=== PATIENT | male | born 1960 | race Caucasian/White ===

== ENCOUNTER 2016-08-02 16:29 | Inpatient (IN) | payer MEDICARE ==
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
[2016-08-02] MEDS ORDERED: OXYCODONE HCL IR 5 MG TABLET PO ONE (17:55)
[2016-08-02 18:05] LABS: ABSOLUTE BASOPHILS # (AUTO) 0.1 10^3/uL (0.0-0.2); ABSOLUTE LYMPHOCYTES (AUTO) 1.1 10^3/uL (0.5-4.7); ABSOLUTE MONOCYTES (AUTO) 0.8 10^3/uL (0.1-1.4); ABSOLUTE NEUT (AUTO) 9.3 10^3/uL (1.7-8.2); BASOPHILS % (AUTO) 0.7 % (0-2); EOSINOPHILS % (AUTO) 0.1 % (0-6); HEMATOCRIT 40.5 % (37.9-51.0); HEMOGLOBIN 13.2 g/dL (13.5-17.0); HGB HCT DIFFERENCE -0.9; LYMPHOCYTES % (AUTO) 9.7 % (13-45); MEAN CORPUSCULAR HEMOGLOBIN 27.5 pg (27.0-33.4); MEAN CORPUSCULAR HGB CONC 32.5 g/dL (32.0-36.0); MEAN CORPUSCULAR VOLUME 85 fl (80-97); MONOCYTES % (AUTO) 6.8 % (3-13); RED BLOOD COUNT 4.78 10^6/uL (4.35-5.55); RED CELL DISTRIBUTION WIDTH 16.4 % (11.5-14.0); SEGMENTED NEUTROPHILS % (AUTO) 82.7 % (42-78); WHITE BLOOD COUNT 11.2 10^3/uL (4.0-10.5)
[2016-08-02] MEDS ORDERED: MORPHINE SULFATE 10 MG/ML INJ IV ONE (18:05)
[2016-08-02] MEDS ORDERED: IPRATROPIUM/ALBUTEROL 0.5-2.5 MG/3 ML AMPUL NEB PRN (18:14)
[2016-08-02] MEDS ORDERED: VANCOMYCIN HCL 0 MG in DEXTROSE 5%-WATER 250 ML IV NR (18:30)
[2016-08-02] MEDS ORDERED: GENTAMICIN SULFATE 0 MG in DEXTROSE 5%-WATER 100 ML IV NR (18:30)
--- NOTE | 2016-08-02 18:52 | PDOC H&P ---
History of Present Illness Admission Date/PCP: 08/02/16 18:04 CORNEL FOOTE Patient complains of: rotten flesh History of Present Illness: SONU MENARD is a 55 year old male known paraplegic from prior injury and with chronic decub ulcers undergoing treatment at the wound clinic presents from home at the insistence of his brother who found him in a frightful state with obviously rotting flesh based on the odor upon entering the home and upon visualization of his chronic wounds. He states the clinic "isn't doing anything with these for the last 4 months", right after he got out of the SNF where he was receiving wound vac treatment before being d/c'd home. He has a diverting ostomy and suprapubic catheter that he manages on his own, used to have home health agency out of [place] but he can't remember the name or last time they came to the home. Dr Auguste has already evaluated and intends to take him to the OR for debridement, we were asked to admit for IV abx and further management. 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 he also has a hx of cdiff colitis though he isn't on any suppressive tx at present. Past Medical History Neurological Medical History: Reports: Other - Paraplegic; paralyzed from waist down Past Surgical History Past Surgical History: Reports: Colostomy Social History Information Source: Patient Smoking Status: Former Smoker Frequency of Alcohol Use: None Hx Recreational Drug Use: No Drugs: None Hx Prescription Drug Abuse: No - Advance Directive Resuscitation Status: Full Code Family History Family History: Reviewed & Not Pertinent, COPD - Brotherlung disease., Hypertension, Malignancy - FatherLung cancer. Parental Family History Reviewed: Yes Children Family History Reviewed: Yes Sibling(s) Family History Reviewed.: Yes Medication/Allergy Home Medications: Diazepam [Valium 5 mg Tablet] 5 mg PO QHS 12/03/15 Gabapentin 600 mg PO TID 12/03/15 Oxycodone HCl [Oxycontin] 30 mg PO Q8H 12/03/15 Oxymorphone HCl [Opana] 10 mg PO Q6HP PRN 12/03/15 Promethazine HCl [Phenergan 25 mg Tablet] 25 mg PO Q6H PRN 12/03/15 Allergies/Adverse Reactions: Penicillins Allergy (Verified 10/02/15 08:17) Review of Systems Constitutional: PRESENT: chills, fever(s), weakness Cardiovascular: ABSENT: chest pain, palpitations Respiratory: ABSENT: cough, dyspnea Gastrointestinal: ABSENT: abdominal pain, dysphagia, heartburn Genitourinary: ABSENT: difficulty urinating, dysuria, hematuria Integumentary: PRESENT: as per HPI, wounds. ABSENT: pruritus Neurological: PRESENT: paresthesias - chronic Psychiatric: ABSENT: homidical ideation, suicidal ideation Physical Exam Vital Signs: Temp Pulse Resp BP Pulse Ox 98.2 F 107 H 18 106/61 96 08/02/16 16:55 08/02/16 16:55 08/02/16 16:55 08/02/16 16:55 08/02/16 16:55 General appearance: PRESENT: mild distress, thin. ABSENT: well-developed - cachectic Head exam: PRESENT: atraumatic, normocephalic Eye exam: ABSENT: conjunctival injection, scleral icterus Mouth exam: PRESENT: neck supple Teeth exam: PRESENT: poor dentation Neck exam: PRESENT: full ROM. ABSENT: tracheal deviation Respiratory exam: PRESENT: clear to auscultation maury. ABSENT: accessory muscle use Cardiovascular exam: PRESENT: RRR. ABSENT: systolic murmur Pulses: PRESENT: normal radial pulses, normal dorsalis pedis pul GI/Abdominal exam: PRESENT: normal bowel sounds, soft, other - ostomy bag full of liquid brown stool. ABSENT: tenderness Gentrourinary exam: PRESENT: indwelling catheter Extremities exam: PRESENT: clubbing, other - severe muscle wasting of lower exts. ABSENT: calf tenderness, pedal edema Musculoskeletal exam: ABSENT: ambulatory, full ROM Neurological exam: PRESENT: alert, awake, oriented to person, oriented to place , oriented to time Psychiatric exam: PRESENT: appropriate affect, normal mood Skin exam: PRESENT: other - open stage 4 pressure wounds buttocks, heels and stage 3 on Rt knee with foul smelling, necrotic tissue and visible deep tissue, possibly bone Results Laboratory Results: 08/02/16 17:50 MCV 85 fl (80-97) 08/02/16 17:50 MCH 27.5 pg (27.0-33.4) 08/02/16 17:50 MCHC 32.5 g/dL (32.0-36.0) 08/02/16 17:50 RDW 16.4 % (11.5-14.0) H 08/02/16 17:50 Seg Neutrophils % 82.7 % (42-78) H 08/02/16 17:50 Lymphocytes % 9.7 % (13-45) L 08/02/16 17:50 Monocytes % 6.8 % (3-13) 08/02/16 17:50 Eosinophils % 0.1 % (0-6) 08/02/16 17:50 Basophils % 0.7 % (0-2) 08/02/16 17:50 Absolute Neutrophils 9.3 10^3/uL (1.7-8.2) H 08/02/16 17:50 Absolute Lymphocytes 1.1 10^3/uL (0.5-4.7) 08/02/16 17:50 Absolute Monocytes 0.8 10^3/uL (0.1-1.4) 08/02/16 17:50 Absolute Eosinophils 0.0 10^3/uL (0.0-0.6) 08/02/16 17:50 Absolute Basophils 0.1 10^3/uL (0.0-0.2) 08/02/16 17:50 Assessment & Plan - Time Time Spent: 50 to 70 Minutes Medications reviewed and adjusted accordingly: Yes Anticipated discharge: SNF Within: Other - Inpatient Certification Based on my medical assessment, after consideration of the patient's comorbidities, presenting symptoms, or acuity I expect that the services needed warrant INPATIENT care.: Yes I certify that my determination is in accordance with my understanding of Medicare's requirements for reasonable and necessary INPATIENT services [42 CFR 412.3e].: Yes Medical Necessity: Failure to Improve With Outpatient Therapy, Significant Comorbidiites Make Outpatient Treatment Too Risky, Need For IV Fluids, Need for Pain Control, Need for IV Antibiotics, Need for Surgery, Risk of Complication if Not Cared For in Hospital - Plan Summary Plan Summary: admit for broad spectrum IV abx with imipenem, gent and vanc; surgery consult for I&D in the OR
[2016-08-02] MEDS ORDERED: OXYCODONE HCL SR 10 MG TABLET PO ONE ×2 (20:15→21:22)
--- NOTE | 2016-08-02 20:38 | OPERATIVE REPORT E ---
Operative Report NAME: SONU MENARD : 1960 AGE: 55Y DATE OF SURGERY: 08/02/2016 ROOM: 212 PREOPERATIVE DIAGNOSIS: A 6 cm x 4 cm deep pressure ulcer on the left trochanteric site with foul-smelling necrotic tissue. POSTOPERATIVE DIAGNOSIS: A 6 cm x 4 cm deep pressure ulcer on the left trochanteric site with foul-smelling necrotic tissue. OPERATION: Sharp debridement of left trochanteric pressure ulcer with large necrotic tissue. SURGEON: SOWMYA JAEGER M.D. ANESTHESIA: INDICATION: This is a 55-year-old paraplegic who had a previous diverting colostomy and suprapubic catheter, apparently has been treated at the halfway facility and subsequently sent home in the past 3 months. He was supposed to have a VAC that was not utilized and now the brother saw him at home with foul-smelling ulcer and patient noted to be dehydrated. The patient is anesthetic from the waist down. He also has another decubitus on the right trochanteric area which looks relatively clean and a lot smaller, roughly measuring about 4 x 5 cm in diameter. DESCRIPTION OF PROCEDURE: With the use of #15 scalpel blade, the necrotic tissue was debrided down to the muscle area until underlying tissue bled. At least half of the ulcer which roughly measured about 10 cm in diameter had considerable amount of necrotic tissue but no yudith abscess. The ulcer has tunneled down into the bone roughly about 4 cm deep. The bone can be palpated though there appears to be tissue over it, so the procedure was terminated and patient to be placed on Santyl dressings b.i.d. I suggest an MRI to rule out any osteomyelitis of the left greater trochanteric area. Sterile dressings placed over the operative site. The patient tolerated the procedure well. DICTATING PHYSICIAN: SOWMYA JAEGER M.D. [id number] PHY#: [id number] ID: [id number] JOB#: [id number] ACCT: [id number] cc:SOWMYA JAEGER M.D. >
[2016-08-02 21:23] LABS: ALANINE AMINOTRANSFERASE 16 U/L (21-72); ALBUMIN 2.9 g/dL (3.5-5.0); ALKALINE PHOSPHATASE 108 U/L (38-126); ANION GAP 9 (5-19); ASPARTATE AMINO TRANSFERASE 15 U/L (17-59); BILIRUBIN,DIRECT 0.3 mg/dL (0.0-0.4); BILIRUBIN,TOTAL 0.5 mg/dL (0.2-1.3); BLOOD UREA NITROGEN 12 mg/dL (7-20); CALCIUM 8.2 mg/dL (8.4-10.2); CARBON DIOXIDE 28 mmol/L (22-30); CHLORIDE 95 mmol/L (98-107); GLUCOSE 148 mg/dL (75-110); PHOSPHORUS 3.4 mg/dL (2.5-4.5); POTASSIUM 3.7 mmol/L (3.6-5.0); SODIUM 131.7 mmol/L (137-145); TOTAL PROTEIN 6.3 g/dL (6.3-8.2)
[2016-08-02] MEDS: METRONIDAZOLE 500 MG TABLET PO SCH (21:33)
[2016-08-02] MEDS: NORMAL SALINE 1000 ML 1,000 ML IV PRN (21:35)
[2016-08-02] MEDS ORDERED: IMIPENEM/CILASTATIN SODIUM INJ 500 MG VIAL IV PRN (22:58)
[2016-08-02] MEDS ORDERED: GENTAMICIN SULFATE INJ 80 MG/2 ML VIAL IV PRN (23:16)
[2016-08-02] MEDS ORDERED: VANCOMYCIN HCL INJ 1000 MG VIAL IV PRN (23:19)
[2016-08-02] MEDS ORDERED: VANCOMYCIN HCL INJ 500 MG VIAL IV PRN (23:20)
[2016-08-02] MEDS: MORPHINE SULFATE 10 MG/ML INJ IV PRN (23:44)
[2016-08-02] MEDS ORDERED: VANCOMYCIN HCL INJ 500 MG VIAL ONE (23:51)
[2016-08-02] MEDS ORDERED: VANCOMYCIN HCL INJ 1000 MG VIAL ONE (23:51)
[2016-08-02] MEDS ORDERED: IMIPENEM/CILASTATIN SODIUM INJ 500 MG VIAL IV ONE (23:51)
[2016-08-03] MEDS ORDERED: IMIPENEM/CILASTATIN SODIUM INJ 500 MG VIAL IV ONE (00:32)
[2016-08-03] MEDS: ACETAMINOPHEN 325 MG TABLET PO PRN ×3 (00:47→21:44)
[2016-08-03] MEDS: IMIPENEM/CILASTATIN SODIUM 500 MG in NORMAL SALINE 100 ML IV SCH ×5 (00:55→23:37)
[2016-08-03] MEDS ORDERED: GENTAMICIN SULFATE 80 MG in DEXTROSE 5%-WATER 100 ML IV ONE (01:00)
[2016-08-03] MEDS ORDERED: VANCOMYCIN HCL 1,250 MG in DEXTROSE 5%-WATER 250 ML IV ONE (02:00)
[2016-08-03] MEDS: OXYCODONE-ACETAMINOPHEN 5-325 MG TABLET PO PRN ×2 (02:04→08:15)
[2016-08-03] MEDS: MORPHINE SULFATE 10 MG/ML INJ IV PRN ×4 (05:04→21:14)
[2016-08-03] MEDS: ONDANSETRON HCL INJ/PF 4 MG/2 ML SDV IV PRN ×2 (06:37→12:54)
[2016-08-03] MEDS: METRONIDAZOLE 500 MG TABLET PO SCH ×3 (06:52→21:16)
[2016-08-03 08:09] LABS: ABSOLUTE BASOPHILS # (AUTO) 0.1 10^3/uL (0.0-0.2); ABSOLUTE LYMPHOCYTES (AUTO) 0.7 10^3/uL (0.5-4.7); ABSOLUTE MONOCYTES (AUTO) 0.7 10^3/uL (0.1-1.4); BASOPHILS % (AUTO) 0.8 % (0-2); EOSINOPHILS % (AUTO) 0.1 % (0-6); HEMATOCRIT 38.1 % (37.9-51.0); HEMOGLOBIN 12.4 g/dL (13.5-17.0); HGB HCT DIFFERENCE -0.9; LYMPHOCYTES % (AUTO) 9.2 % (13-45); MEAN CORPUSCULAR HEMOGLOBIN 27.5 pg (27.0-33.4); MEAN CORPUSCULAR HGB CONC 32.4 g/dL (32.0-36.0); MEAN CORPUSCULAR VOLUME 85 fl (80-97); MONOCYTES % (AUTO) 9.8 % (3-13); RED CELL DISTRIBUTION WIDTH 16.4 % (11.5-14.0); SEGMENTED NEUTROPHILS % (AUTO) 80.1 % (42-78); WHITE BLOOD COUNT 7.5 10^3/uL (4.0-10.5)
[2016-08-03 08:26] LABS: ANION GAP 8 (5-19); BLOOD UREA NITROGEN 10 mg/dL (7-20); CALCIUM 8.1 mg/dL (8.4-10.2); CARBON DIOXIDE 24 mmol/L (22-30); CHLORIDE 98 mmol/L (98-107); CREATININE RESULT 0.47 mg/dL (0.52-1.25); GLUCOSE 144 mg/dL (75-110); POTASSIUM 3.8 mmol/L (3.6-5.0); SODIUM 129.8 mmol/L (137-145)
[2016-08-03] MEDS ORDERED: IMIPENEM/CILASTATIN SODIUM 500 MG in NORMAL SALINE 100 ML IV SCH (09:00)
[2016-08-03] MEDS: ENOXAPARIN SODIUM INJ 40 MG/0.4 ML DISP.SYRIN SUBCUT SCH (10:13)
--- NOTE | 2016-08-03 10:24 | PDOC PROGRESS REPORT ---
Subjective Progress Note for:: 08/03/16 Subjective:: reason for visit: f/u decub ulcers, hyponatremia hospital course: SONU MENARD is a 55 year old male known paraplegic from prior injury and with chronic decub ulcers undergoing treatment at the wound clinic presents from home at the insistence of his brother who found him in a frightful state with obviously rotting flesh based on the odor upon entering the home and upon visualization of his chronic wounds. He states the clinic "isn't doing anything with these for the last 4 months", right after he got out of the SNF where he was receiving wound vac treatment before being d/c'd home. He has a diverting ostomy and suprapubic catheter that he manages on his own, used to have home health agency out of [place] but he can't remember the name or last time they came to the home. Dr Auguste has already evaluated and intends to take him to the OR for debridement, we were asked to admit for IV abx and further management. 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 he also has a hx of cdiff colitis though he isn't on any suppressive tx at present. taken to the OR last night by dr auguste with extensive debridement particularly of the largest of his wounds identifying a fistulous tract down to pelvic bone; unknown if tissue or fluid sent for cultures. he is feeling some better this morning, c/o persistent chronic, constant sharp stabbing pain in his lower back, nonradiating, not improved with anything, worse with "everything". had fever overnight that made him feel worse with asct 'd chills/rigors. denies chest pain, SOA, n/v and change in stools. ROS: all systems reviewed, see above, remaining systems negative Physical Exam Vital Signs: Temp Pulse Resp BP Pulse Ox 98.8 F 103 H 16 88/52 L 98 08/03/16 08:07 08/03/16 08:07 08/03/16 08:07 08/03/16 08:07 08/03/16 08:07 Intake & Output 08/02/16 08/03/16 08/04/16 06:59 06:59 06:59 Intake Total 400 Output Total 400 Balance 0 Weight 56.7 kg General appearance: PRESENT:no distress, thin- cachectic Head exam: PRESENT: atraumatic, normocephalic Eye exam: ABSENT: conjunctival injection, scleral icterus Mouth exam: PRESENT: neck supple Teeth exam: PRESENT: poor dentation Neck exam: PRESENT: full ROM. ABSENT: tracheal deviation Respiratory exam: PRESENT: clear to auscultation maury. ABSENT: accessory muscle use Cardiovascular exam: PRESENT: RRR. ABSENT: systolic murmur Pulses: PRESENT: normal radial pulses, normal dorsalis pedis pul GI/Abdominal exam: PRESENT: normal bowel sounds, soft, other - ostomy noted ABSENT: tenderness Gentrourinary exam: PRESENT: indwelling suprapubic catheter Extremities exam: PRESENT: clubbing, other - severe muscle wasting of lower exts. ABSENT: calf tenderness, pedal edema Musculoskeletal exam: ABSENT: ambulatory, full ROM Neurological exam: PRESENT: alert, awake, oriented to person, oriented to place , oriented to time Psychiatric exam: PRESENT: appropriate affect, normal mood SKIN: wounds heavily bandaged and did not visualize Results Laboratory Results: 08/03/16 08:00 08/03/16 08:00 08/02/16 08/02/16 08/03/16 19:05 21:00 08:00 WBC 7.5 RBC 4.50 Hgb 12.4 L Hct 38.1 MCV 85 MCH 27.5 MCHC 32.4 RDW 16.4 H Plt Count 159 Seg Neutrophils % 80.1 H Lymphocytes % 9.2 L Monocytes % 9.8 Eosinophils % 0.1 Basophils % 0.8 Absolute Neutrophils 6.0 Absolute Lymphocytes 0.7 Absolute Monocytes 0.7 Absolute Eosinophils 0.0 Absolute Basophils 0.1 Sodium Cancelled 131.7 L Potassium Cancelled 3.7 Chloride Cancelled 95 L Carbon Dioxide Cancelled 28 Anion Gap Cancelled 9 BUN Cancelled 12 Creatinine Cancelled 0.80 Est GFR ( Amer) Cancelled > 60 Est GFR (Non-Af Amer) Cancelled > 60 Glucose Cancelled 148 H Calcium Cancelled 8.2 L Phosphorus Cancelled 3.4 Magnesium Cancelled 2.0 Total Bilirubin Cancelled 0.5 AST Cancelled 15 L ALT Cancelled 16 L Alkaline Phosphatase Cancelled 108 Total Protein Cancelled 6.3 Albumin Cancelled 2.9 L 08/03/16 08:00 WBC RBC Hgb Hct MCV MCH MCHC RDW Plt Count Seg Neutrophils % Lymphocytes % Monocytes % Eosinophils % Basophils % Absolute Neutrophils Absolute Lymphocytes Absolute Monocytes Absolute Eosinophils Absolute Basophils Sodium 129.8 L Potassium 3.8 Chloride 98 Carbon Dioxide 24 Anion Gap 8 BUN 10 Creatinine 0.47 L Est GFR ( Amer) > 60 Est GFR (Non-Af Amer) > 60 Glucose 144 H Calcium 8.1 L Phosphorus Magnesium Total Bilirubin AST ALT Alkaline Phosphatase Total Protein Albumin Assessment & Plan - Diagnosis (1) Osteomyelitis hip Is this a current diagnosis for this admission?: YesPlan: new. continue broad spectrum abx awaiting cultures to narrow (2) Sacral decubitus ulcer, stage IV Is this a current diagnosis for this admission?: YesPlan: improved after surgery; continue wound care and further debridement per surgeon (3) History of MRSA infection Is this a current diagnosis for this admission?: YesPlan: continue vanc until cultures prove otherweise (4) Paraplegia following spinal cord injury Is this a current diagnosis for this admission?: Yes (5) Hyponatremia Is this a current diagnosis for this admission?: YesPlan: continue IVFs (6) History of Clostridium difficile colitis Is this a current diagnosis for this admission?: YesPlan: continue prophylactic flagyl and probiotic (7) Severe protein-calorie malnutrition Is this a current diagnosis for this admission?: YesPlan: affects wound healing; dietary/nutrition consult (8) Chronic pain Qualifiers: Chronic pain type: other chronic postprocedural pain Qualified Code( s): G89.28 - Other chronic postprocedural pain Is this a current diagnosis for this admission?: YesPlan: narcotic dependent; continue home regimen and prn analgesics - Time Time Spent with patient: 25-34 minutes Medications reviewed and adjusted accordingly: Yes Anticipated discharge: Home with Homehealth - Plan Summary Plan Summary: place PICC line for 6wks of abx; defer to surgery regarding wound vac though he has had some success with this device in the past
[2016-08-03] MEDS: OXYCODONE HCL SR 10 MG TABLET PO SCH ×2 (13:33→21:15)
[2016-08-03] MEDS: OXYCODONE HCL IR 5 MG TABLET PO PRN ×2 (13:47→19:53)
[2016-08-03] MEDS ORDERED: GABAPENTIN 300 MG CAPSULE PO SCH (14:00)
[2016-08-03] MEDS: GENTAMICIN SULFATE 80 MG in DEXTROSE 5%-WATER 100 ML IV SCH (14:25)
[2016-08-03] MEDS: GABAPENTIN 300 MG CAPSULE PO SCH ×2 (14:26→21:15)
[2016-08-03] MEDS: VANCOMYCIN HCL 750 MG in DEXTROSE 5%-WATER 250 ML IV SCH (15:40)
[2016-08-03] MEDS ORDERED: COLLAGENASE CLOSTRIDIUM HIST. OINT 30 GM ONE (17:06)
[2016-08-03] MEDS: LACTOBACILLUS ACIDOPHILUS 250 MG TAB PO SCH (17:32)
[2016-08-03] MEDS: COLLAGENASE CLOSTRIDIUM HIST. OINT 30 GM TOP SCH (17:33)
--- NOTE | 2016-08-03 21:38 | PROGRESS NOTE E ---
Progress Note NAME: SONU MENARD : 1960 AGE: 55Y DATE: 08/03/2016 ROOM: 212 SUBJECTIVE: I did debridement of large decubitus pressure ulcer on the left trochanteric area at bedside yesterday. I just ordered Santyl dressing changes to the left decubitus ulcer twice a day for further debridement. The patient may need an MRI of the left hip to rule out osteomyelitis. Also, if there is osteomyelitis then Orthopedics may be able to dbride the trochanteric area and then start him back on VAC therapy since he has already been stool diverted with a colostomy. In the meantime, continue with IV antibiotic therapy for at least 6 weeks. DICTATING PHYSICIAN: SOWMYA JAEGER M.D. [id number] JOSE#: [id number] ID: [id number] JOB#: [id number] ACCT: [id number] cc: >
[2016-08-04] MEDS: GENTAMICIN SULFATE 80 MG in DEXTROSE 5%-WATER 100 ML IV SCH ×2 (01:19→14:09)
[2016-08-04] MEDS: MORPHINE SULFATE 10 MG/ML INJ IV PRN ×5 (01:26→21:25)
[2016-08-04] MEDS: OXYCODONE HCL IR 5 MG TABLET PO PRN ×3 (03:03→19:09)
[2016-08-04] MEDS: GABAPENTIN 300 MG CAPSULE PO SCH ×4 (03:59→21:26)
[2016-08-04] MEDS: VANCOMYCIN HCL 750 MG in DEXTROSE 5%-WATER 250 ML IV SCH ×2 (04:00→16:26)
[2016-08-04] MEDS: IMIPENEM/CILASTATIN SODIUM 500 MG in NORMAL SALINE 100 ML IV SCH ×3 (05:14→19:07)
[2016-08-04] MEDS: OXYCODONE HCL SR 10 MG TABLET PO SCH ×3 (05:14→22:59)
[2016-08-04] MEDS: METRONIDAZOLE 500 MG TABLET PO SCH ×3 (05:14→21:26)
[2016-08-04] MEDS ORDERED: NORMAL SALINE 1000 ML 1,000 ML IV ONE (07:00)
[2016-08-04 07:36] LABS: ABSOLUTE EOSINOPHILS # (AUTO) 0.1 10^3/uL (0.0-0.6); ABSOLUTE LYMPHOCYTES (AUTO) 1.3 10^3/uL (0.5-4.7); ABSOLUTE MONOCYTES (AUTO) 0.7 10^3/uL (0.1-1.4); ABSOLUTE NEUT (AUTO) 4.3 10^3/uL (1.7-8.2); BASOPHILS % (AUTO) 0.5 % (0-2); EOSINOPHILS % (AUTO) 0.9 % (0-6); HEMATOCRIT 36.3 % (37.9-51.0); HEMOGLOBIN 11.8 g/dL (13.5-17.0); HGB HCT DIFFERENCE -0.9; LYMPHOCYTES % (AUTO) 20.2 % (13-45); MEAN CORPUSCULAR HEMOGLOBIN 27.6 pg (27.0-33.4); MEAN CORPUSCULAR HGB CONC 32.6 g/dL (32.0-36.0); MEAN CORPUSCULAR VOLUME 85 fl (80-97); MONOCYTES % (AUTO) 11.2 % (3-13); RED CELL DISTRIBUTION WIDTH 16.6 % (11.5-14.0); SEGMENTED NEUTROPHILS % (AUTO) 67.2 % (42-78); WHITE BLOOD COUNT 6.4 10^3/uL (4.0-10.5)
[2016-08-04 07:40] LABS: PROTHROMBIN TIME 13.8 SEC (11.4-15.4)
[2016-08-04 07:46] LABS: ANION GAP 8 (5-19); BLOOD UREA NITROGEN 6 mg/dL (7-20); CALCIUM 8.1 mg/dL (8.4-10.2); CARBON DIOXIDE 22 mmol/L (22-30); CHLORIDE 100 mmol/L (98-107); CREATININE RESULT 0.41 mg/dL (0.52-1.25); GLUCOSE 99 mg/dL (75-110); POTASSIUM 3.8 mmol/L (3.6-5.0)
[2016-08-04 08:08] LABS: C-REACTIVE PROTEIN 201.2 mg/L (<10.0)
[2016-08-04] MEDS: COLLAGENASE CLOSTRIDIUM HIST. OINT 30 GM TOP SCH ×2 (10:35→19:18)
[2016-08-04] MEDS: LACTOBACILLUS ACIDOPHILUS 250 MG TAB PO SCH ×2 (10:35→19:11)
--- NOTE | 2016-08-04 11:01 | PDOC PROGRESS REPORT ---
Subjective Progress Note for:: 08/04/16 Subjective:: reason for visit: f/u decub ulcers, hyponatremia hospital course: SONU MENARD is a 55 year old male known paraplegic from prior injury and with chronic decub ulcers undergoing treatment at the wound clinic presents from home at the insistence of his brother who found him in a frightful state with obviously rotting flesh based on the odor upon entering the home and upon visualization of his chronic wounds. He states the clinic "isn't doing anything with these for the last 4 months", right after he got out of the SNF where he was receiving wound vac treatment before being d/c'd home. He has a diverting ostomy and suprapubic catheter that he manages on his own, used to have home health agency out of [place] but he can't remember the name or last time they came to the home. Dr Auguste has already evaluated and intends to take him to the OR for debridement, we were asked to admit for IV abx and further management. 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 he also has a hx of cdiff colitis though he isn't on any suppressive tx at present. taken to the OR by dr auguste with extensive debridement particularly of the largest of his wounds identifying a fistulous tract down to pelvic bone; unknown if tissue or fluid sent for cultures. he is feeling some better this morning, c/o persistent chronic, constant sharp stabbing pain in his lower back though improved since admission, nonradiating, improved with narcotics, worse with movement. had fever overnight that made him feel worse with asct'd chills/rigors. denies chest pain, SOA, n/v; stools are more loose but not mucus or foul, he is well aware of cdiff stool character. ROS: all systems reviewed, see above, remaining systems negative Physical Exam Vital Signs: Temp Pulse Resp BP Pulse Ox 99.3 F 80 16 96/51 L 100 08/04/16 08:26 08/04/16 10:15 08/04/16 10:15 08/04/16 08:26 08/04/16 10:15 Intake & Output 08/03/16 08/04/16 08/05/16 06:59 06:59 06:59 Intake Total 400 16 Output Total 786 052 3333 Balance 0 -150 -1584 Weight 56.7 kg 65.1 kg General appearance: PRESENT:no distress, thin- cachectic Head exam: PRESENT: atraumatic, normocephalic Eye exam: ABSENT: conjunctival injection, scleral icterus Mouth exam: PRESENT: neck supple Teeth exam: PRESENT: poor dentation Neck exam: PRESENT: full ROM. ABSENT: tracheal deviation Respiratory exam: PRESENT: clear to auscultation maury. ABSENT: accessory muscle use Cardiovascular exam: PRESENT: RRR. ABSENT: systolic murmur Pulses: PRESENT: normal radial pulses, normal dorsalis pedis pul GI/Abdominal exam: PRESENT: normal bowel sounds, soft, other - ostomy noted ABSENT: tenderness Gentrourinary exam: PRESENT: indwelling suprapubic catheter Extremities exam: PRESENT: clubbing, other - severe muscle wasting of lower exts. ABSENT: calf tenderness, pedal edema Musculoskeletal exam: ABSENT: ambulatory, full ROM Neurological exam: PRESENT: alert, awake, oriented to person, oriented to place , oriented to time Psychiatric exam: PRESENT: appropriate affect, normal mood SKIN: wounds heavily bandaged and did not visualize Results Laboratory Results: 08/04/16 06:55 08/04/16 06:55 08/04/16 08/04/16 06:55 06:55 WBC 6.4 RBC 4.30 L Hgb 11.8 L Hct 36.3 L MCV 85 MCH 27.6 MCHC 32.6 RDW 16.6 H Plt Count 124 L Seg Neutrophils % 67.2 Lymphocytes % 20.2 Monocytes % 11.2 Eosinophils % 0.9 Basophils % 0.5 Absolute Neutrophils 4.3 Absolute Lymphocytes 1.3 Absolute Monocytes 0.7 Absolute Eosinophils 0.1 Absolute Basophils 0.0 Sodium 130.0 L Potassium 3.8 Chloride 100 Carbon Dioxide 22 Anion Gap 8 BUN 6 L Creatinine 0.41 L Est GFR ( Amer) > 60 Est GFR (Non-Af Amer) > 60 Glucose 99 Calcium 8.1 L C-Reactive Protein 201.2 H Assessment & Plan - Diagnosis (1) Osteomyelitis hip Is this a current diagnosis for this admission?: YesPlan: stable. continue broad spectrum abx for 6 weeks, awaiting cultures to narrow. discussed need for advanced imaging and/or transfer to tertiary center for more extensive debridement including bone but he has chosen a more conservative approach at this time. He is agreable to PICC line and home abx for 6 wks and wishes to discuss outpt referral to [facility] for surgical evaluation and options with his PCP. (2) Sacral decubitus ulcer, stage IV Is this a current diagnosis for this admission?: YesPlan: improved after surgery; continue wound care and further debridement per surgeon. may benefit from wound vac?? (3) History of MRSA infection Is this a current diagnosis for this admission?: Yes (4) Paraplegia following spinal cord injury Is this a current diagnosis for this admission?: Yes (5) Hyponatremia Is this a current diagnosis for this admission?: YesPlan: stable and likely his new baseline. (6) History of Clostridium difficile colitis Is this a current diagnosis for this admission?: YesPlan: stable, no evidence for recurrence as yet; continue prophylactic flagyl and probiotic (7) Severe protein-calorie malnutrition Is this a current diagnosis for this admission?: YesPlan: stable. affects wound healing; dietary/nutrition consult (8) Chronic pain Qualifiers: Chronic pain type: other chronic postprocedural pain Qualified Code( s): G89.28 - Other chronic postprocedural pain Is this a current diagnosis for this admission?: YesPlan: narcotic dependent; improved back on his home regimen and prn analgesics - Time Time Spent with patient: 15-24 minutes Anticipated discharge: Home with Homehealth Within: within 24 hours - Plan Summary Plan Summary: dialysis patient care technician consult for home abx; awaiting culture results to narrow abx if possible, if not then would recommend continuing vanc and a carbapenem with pseudomonas coverage, oral flagyl for cdiff prophylaxis and d/c gentamycin
[2016-08-04] MEDS: ENOXAPARIN SODIUM INJ 40 MG/0.4 ML DISP.SYRIN SUBCUT SCH (12:20)
--- NOTE | 2016-08-04 12:35 | RADIOLOGY REPORT (SQ) ---
EXAM DESCRIPTION: PICC INSERTION; U/S GUIDE FOR VASCULAR ACCESS; FLUORO/CV PLACEMENT COMPLETED DATE/TIME: 08/04/2016 12:21 pm REASON FOR STUDY: needs 6wks IV abx; NEEDS 6 WEEK IV ABX; NEEDS 6 WEEKS IV ABX COMPARISON: None. FLUOROSCOPY TIME: 17 seconds. 1 images saved to PACS. TECHNIQUE: Fluoroscopic and ultrasound guided PICC placement. LIMITATIONS: None. PROCEDURE: After written consent and assessment were obtained, the patient was brought into the fluo roscopy room and place supine on the table. Ultrasound was used on the patient's right arm for PICC access. The right arm was prepped and draped in a sterile fashion along with the ultrasound probe. Th e entry site was anesthetized with 1% lidocaine. A 21 gauge 7 cm needle was advanced through the skin and into the basilic vein under live ultrasound guidance. An ultrasound image was saved to PACS con firming access site. A .018 guide wire was then inserted through the needle and into the venous syst em. The needle was the removed and an 11 blade scalpel was used to make a 1cm skin incision. A 5 fr peel-away sheath was advanced over the wire and into the venous system. A measurement was then made u sing the existing wire and live fluoroscopic guidance. The wire was then removed and the trimmed. The PICC was advanced through the peel-away sheath and into the venous system. The peel-away sheath was removed and the catheter was adhered to the patients arm with a stat lock. The catheter was then aspi rated and flushed and a sterile bandage was placed over the access site. A fluoroscopic spot image w as saved to PACS confirming the catheter tip within the superior vena cava. IMPRESSION: SUCCESSFUL PLACEMENT OF A 5 FR DUAL LUMEN 34 CM PICC IN THE RIGHT BASILIC VEIN. COMMENT: Patient medication list reviewed: Yes- Quality ID# [id number]:Eligible professional attests to doc umenting in the medical record they obtained, updated, or reviewed the patient's current medications. . Quality ID 145: Final reports for procedures using fluoroscopy that document radiation exposure parrish mehdi, or exposure time and number of fluorographic images (if radiation exposure indices are not avail able) Quality ID #76: The patient was prepped and draped using maximum sterile barrier technique including cap, mask, sterile gown, sterile gloves, a large sterile sheet, hand hygiene, and 2% Chlorhexidine fo r cutaneous antisepsis. When ultrasound is used, sterile ultrasound techniques are followed requiring sterile gel and sterile probes. TECHNICAL DOCUMENTATION: JOB ID: [id number] [employer]- All Rights Reserved
[2016-08-04] MEDS: NORMAL SALINE 1000 ML 1,000 ML IV PRN (12:37)
[2016-08-04 14:52] LABS: GENTAMICIN-TROUGH < 0.6 ug/mL (<2.0); TROUGH DRAW TIME 1357
[2016-08-04 17:27] LABS: GENTAMICIN-PEAK 6.2 ug/mL (5.0-10.0)
[2016-08-04] MEDS ORDERED: NORMAL SALINE 10 ML SDV (AFTER EACH USE) IV PRN (18:34)
[2016-08-05] MEDS: OXYCODONE HCL IR 5 MG TABLET PO PRN ×3 (01:40→23:58)
[2016-08-05] MEDS: IMIPENEM/CILASTATIN SODIUM 500 MG in NORMAL SALINE 100 ML IV SCH ×5 (01:41→23:58)
[2016-08-05] MEDS: GENTAMICIN SULFATE 80 MG in DEXTROSE 5%-WATER 100 ML IV SCH ×2 (03:07→13:20)
[2016-08-05] MEDS: GABAPENTIN 300 MG CAPSULE PO SCH ×4 (03:12→21:53)
[2016-08-05] MEDS: MORPHINE SULFATE 10 MG/ML INJ IV PRN ×4 (04:25→20:16)
[2016-08-05] MEDS: VANCOMYCIN HCL 750 MG in DEXTROSE 5%-WATER 250 ML IV SCH ×2 (04:32→15:45)
[2016-08-05] MEDS: OXYCODONE HCL SR 10 MG TABLET PO SCH ×3 (06:48→21:53)
[2016-08-05] MEDS: METRONIDAZOLE 500 MG TABLET PO SCH ×3 (06:48→21:53)
[2016-08-05] MEDS: NORMAL SALINE 1000 ML 1,000 ML IV PRN (06:56)
[2016-08-05 07:21] LABS: ABSOLUTE EOSINOPHILS # (AUTO) 0.1 10^3/uL (0.0-0.6); ABSOLUTE LYMPHOCYTES (AUTO) 1.6 10^3/uL (0.5-4.7); ABSOLUTE MONOCYTES (AUTO) 0.4 10^3/uL (0.1-1.4); ABSOLUTE NEUT (AUTO) 2.4 10^3/uL (1.7-8.2); BASOPHILS % (AUTO) 0.4 % (0-2); EOSINOPHILS % (AUTO) 2.3 % (0-6); HEMATOCRIT 33.6 % (37.9-51.0); HEMOGLOBIN 10.8 g/dL (13.5-17.0); HGB HCT DIFFERENCE -1.2; LYMPHOCYTES % (AUTO) 35.7 % (13-45); MEAN CORPUSCULAR HEMOGLOBIN 27.5 pg (27.0-33.4); MEAN CORPUSCULAR HGB CONC 32.2 g/dL (32.0-36.0); MEAN CORPUSCULAR VOLUME 86 fl (80-97); RED BLOOD COUNT 3.94 10^6/uL (4.35-5.55); RED CELL DISTRIBUTION WIDTH 16.8 % (11.5-14.0); SEGMENTED NEUTROPHILS % (AUTO) 53.6 % (42-78); WHITE BLOOD COUNT 4.4 10^3/uL (4.0-10.5)
[2016-08-05 07:44] LABS: ANION GAP 5 (5-19); BLOOD UREA NITROGEN 5 mg/dL (7-20); CALCIUM 7.8 mg/dL (8.4-10.2); CARBON DIOXIDE 28 mmol/L (22-30); CHLORIDE 102 mmol/L (98-107); CREATININE RESULT 0.37 mg/dL (0.52-1.25); GLUCOSE 94 mg/dL (75-110); POTASSIUM 3.8 mmol/L (3.6-5.0); SODIUM 135.4 mmol/L (137-145)
[2016-08-05 08:03] LABS: C-REACTIVE PROTEIN 126.6 mg/L (<10.0)
[2016-08-05] MEDS: LACTOBACILLUS ACIDOPHILUS 250 MG TAB PO SCH ×2 (09:27→18:10)
[2016-08-05] MEDS: ENOXAPARIN SODIUM INJ 40 MG/0.4 ML DISP.SYRIN SUBCUT SCH (09:27)
[2016-08-05] MEDS: COLLAGENASE CLOSTRIDIUM HIST. OINT 30 GM TOP SCH ×2 (09:28→18:10)
[2016-08-05] MEDS ORDERED: MORPHINE SULFATE 10 MG/ML INJ IV ONE (14:00)
[2016-08-05] MEDS: NORMAL SALINE 10 ML SDV (SCHEDULED) IV SCH (16:49)
--- NOTE | 2016-08-05 17:18 | PDOC PROGRESS REPORT ---
Subjective Progress Note for:: 08/05/16 Subjective:: The patient is resting in his bed. He has been having uncontrolled pain. We discussed his pain management. He has chronic pain with continuous narcotic use at baseline on fairly high-dose narcotics. He has been having increased pain since his surgical debridement. We discussed the plan of care. He states he would consider transfer to a tertiary center. I have discussed the patient today and I would like to talk to surgery and further review of his chart. I told him that if all are in agreement I would attempt to transfer him tomorrow. He is in agreement with this plan. Overall he denies fever chills. No chest pain, shortness of breath or heart palpitations. No nausea or vomiting. He states he is now having loose stools through his ostomy bag and he does have a history of Clostridium difficile infection. His stool has been sent for further studies. He has no voiding complaints. Physical Exam Vital Signs: Temp Pulse Resp BP Pulse Ox 97.9 F 67 16 91/45 L 98 08/05/16 15:00 08/05/16 15:00 08/05/16 15:00 08/05/16 15:00 08/05/16 15:00 Intake & Output 08/04/16 08/05/16 08/06/16 06:59 06:59 06:59 Intake Total 856 840 Output Total 150 4500 800 Balance -150 -3644 40 Weight 65.1 kg 62.6 kg General appearance: PRESENT: no acute distress Exam: He is quite cachectic Head exam: PRESENT: atraumatic, normocephalic Mouth exam: PRESENT: moist Respiratory exam: PRESENT: clear to auscultation maury Cardiovascular exam: PRESENT: RRR, +S1, +S2 GI/Abdominal exam: PRESENT: normal bowel sounds, soft, other - He is extremely thin. He has an ostomy in the left lower abdomen with soft stool in the bag.. ABSENT: tenderness Extremities exam: PRESENT: other - No clubbing cyanosis or edema. He has muscle wasting in all of his extremities bilaterally Neurological exam: PRESENT: alert, awake, oriented to person, oriented to place , oriented to time Psychiatric exam: PRESENT: appropriate affect Skin exam: PRESENT: dry, warm - Sacrum was not examined this addressing the just been replaced by the nursing staff. I will look at tomorrow. Results Laboratory Results: 08/05/16 06:48 08/05/16 06:48 08/05/16 08/05/16 06:48 06:48 WBC 4.4 RBC 3.94 L Hgb 10.8 L Hct 33.6 L MCV 86 MCH 27.5 MCHC 32.2 RDW 16.8 H Plt Count 153 Seg Neutrophils % 53.6 Lymphocytes % 35.7 Monocytes % 8.0 Eosinophils % 2.3 Basophils % 0.4 Absolute Neutrophils 2.4 Absolute Lymphocytes 1.6 Absolute Monocytes 0.4 Absolute Eosinophils 0.1 Absolute Basophils 0.0 Sodium 135.4 L Potassium 3.8 Chloride 102 Carbon Dioxide 28 Anion Gap 5 BUN 5 L Creatinine 0.37 L Est GFR ( Amer) > 60 Est GFR (Non-Af Amer) > 60 Glucose 94 Calcium 7.8 L C-Reactive Protein 126.6 H Impressions: Guidance Fluoroscopy 08/04/16 00:00 IMPRESSION: SUCCESSFUL PLACEMENT OF A 5 FR DUAL LUMEN 34 CM PICC IN THE RIGHT BASILIC VEIN. Interventional Vascular Procedure 08/04/16 00:00 IMPRESSION: SUCCESSFUL PLACEMENT OF A 5 FR DUAL LUMEN 34 CM PICC IN THE RIGHT BASILIC VEIN. PICC Line Insertion 08/04/16 08:00 IMPRESSION: SUCCESSFUL PLACEMENT OF A 5 FR DUAL LUMEN 34 CM PICC IN THE RIGHT BASILIC VEIN. Assessment & Plan - Diagnosis (1) Osteomyelitis hip Is this a current diagnosis for this admission?: YesPlan: He will continue vancomycin and imipenem. His gentamicin will be discontinued today. This is day #3 out of 42 days of treatment if the patient decides on a more conservative approach. I spoke to the patient today and he is open to the idea of transfer to a tertiary center. I will discuss further with general surgery tomorrow. (2) Sacral decubitus ulcer, stage IV Is this a current diagnosis for this admission?: YesPlan: Status post surgical debridement. Plan as above. (3) History of Clostridium difficile colitis Is this a current diagnosis for this admission?: YesPlan: The patient began having loose stools. He is on Flagyl for prophylaxis at this point. His stool has been sent for further studies. (4) Hyponatremia Is this a current diagnosis for this admission?: YesPlan: Stable (5) Severe protein-calorie malnutrition Is this a current diagnosis for this admission?: YesPlan: We will continue to encourage good p.o. intake. Certainly we may need to maximize his nutritional status prior to having any sort of big procedure of the tertiary center. Will discuss further tomorrow with general surgery. (6) Paraplegia following spinal cord injury Is this a current diagnosis for this admission?: YesPlan: He is at his baseline (7) History of MRSA infection Is this a current diagnosis for this admission?: Yes (8) Chronic pain Qualifiers: Chronic pain type: other chronic postprocedural pain Qualified Code( s): G89.28 - Other chronic postprocedural pain Is this a current diagnosis for this admission?: YesPlan: He has chronic pain with continuous narcotic use. I am going to place him back on his home medications. He will continue to have IV morphine available for breakthrough pain. - Time Time Spent with patient: 25-34 minutes - Plan Summary Plan Summary: Inpatient hospitalization remains necessary. The patient's requiring parenteral antibiotics. He will either need transfer to a tertiary center or to be set up with long-term IV antibiotics. Will discuss further tomorrow.
[2016-08-05] MEDS ORDERED: FENTANYL 25 MCG/HR PATCH.TD72 TD ONE (19:00)
[2016-08-05] MEDS: VANCOMYCIN HCL 1,000 MG in DEXTROSE 5%-WATER 250 ML IV SCH (21:52)
[2016-08-06] MEDS: NORMAL SALINE 10 ML SDV (SCHEDULED) IV SCH ×3 (03:32→22:21)
[2016-08-06] MEDS: GABAPENTIN 300 MG CAPSULE PO SCH ×4 (03:35→21:40)
[2016-08-06] MEDS: MORPHINE SULFATE 10 MG/ML INJ IV PRN ×5 (03:35→21:39)
[2016-08-06] MEDS: IMIPENEM/CILASTATIN SODIUM 500 MG in NORMAL SALINE 100 ML IV SCH ×3 (05:14→18:31)
[2016-08-06] MEDS: OXYCODONE HCL SR 10 MG TABLET PO SCH ×3 (05:43→22:20)
[2016-08-06] MEDS: METRONIDAZOLE 500 MG TABLET PO SCH ×3 (05:43→21:40)
[2016-08-06] MEDS: VANCOMYCIN HCL 1,000 MG in DEXTROSE 5%-WATER 250 ML IV SCH ×3 (06:47→22:21)
[2016-08-06] MEDS ORDERED: PHARMACY COMMUNICATION ORDER MC NR (08:30)
[2016-08-06] MEDS: LACTOBACILLUS ACIDOPHILUS 250 MG TAB PO SCH ×2 (09:19→18:31)
[2016-08-06] MEDS: ENOXAPARIN SODIUM INJ 40 MG/0.4 ML DISP.SYRIN SUBCUT SCH (09:21)
[2016-08-06 09:41] LABS: HEMATOCRIT 35.3 % (37.9-51.0); HEMOGLOBIN 11.6 g/dL (13.5-17.0); HGB HCT DIFFERENCE -0.5; MEAN CORPUSCULAR HEMOGLOBIN 27.8 pg (27.0-33.4); MEAN CORPUSCULAR HGB CONC 32.8 g/dL (32.0-36.0); MEAN CORPUSCULAR VOLUME 85 fl (80-97); RED BLOOD COUNT 4.17 10^6/uL (4.35-5.55); RED CELL DISTRIBUTION WIDTH 16.8 % (11.5-14.0); WHITE BLOOD COUNT 4.1 10^3/uL (4.0-10.5)
[2016-08-06] MEDS: OXYCODONE HCL IR 5 MG TABLET PO PRN ×2 (11:17→19:38)
[2016-08-06] MEDS: NORMAL SALINE 1000 ML 1,000 ML IV PRN (14:11)
[2016-08-06] MEDS: COLLAGENASE CLOSTRIDIUM HIST. OINT 30 GM TOP SCH (14:40)
[2016-08-07] MEDS: IMIPENEM/CILASTATIN SODIUM 500 MG in NORMAL SALINE 100 ML IV SCH ×2 (00:20→05:09)
[2016-08-07] MEDS: MORPHINE SULFATE 10 MG/ML INJ IV PRN ×5 (01:37→19:10)
[2016-08-07] MEDS: GABAPENTIN 300 MG CAPSULE PO SCH ×4 (03:39→22:33)
[2016-08-07] MEDS: OXYCODONE HCL IR 5 MG TABLET PO PRN ×3 (03:40→17:02)
[2016-08-07] MEDS: OXYCODONE HCL SR 10 MG TABLET PO SCH ×3 (05:27→21:05)
[2016-08-07] MEDS: METRONIDAZOLE 500 MG TABLET PO SCH ×3 (05:28→21:05)
[2016-08-07] MEDS: COLLAGENASE CLOSTRIDIUM HIST. OINT 30 GM TOP SCH ×2 (05:29→17:03)
[2016-08-07 06:22] LABS: ANION GAP 8 (5-19); BLOOD UREA NITROGEN 8 mg/dL (7-20); CALCIUM 7.3 mg/dL (8.4-10.2); CARBON DIOXIDE 28 mmol/L (22-30); CHLORIDE 105 mmol/L (98-107); CREATININE RESULT 0.52 mg/dL (0.52-1.25); GLUCOSE 100 mg/dL (75-110); POTASSIUM 3.7 mmol/L (3.6-5.0); SODIUM 141.1 mmol/L (137-145)
[2016-08-07] MEDS: VANCOMYCIN HCL 1,000 MG in DEXTROSE 5%-WATER 250 ML IV SCH (06:43)
[2016-08-07] MEDS: NORMAL SALINE 10 ML SDV (SCHEDULED) IV SCH ×2 (10:00→22:33)
[2016-08-07] MEDS: LACTOBACILLUS ACIDOPHILUS 250 MG TAB PO SCH ×2 (10:00→17:03)
[2016-08-07] MEDS ORDERED: DAPTOMYCIN IV SCH (10:00)
[2016-08-07] MEDS ORDERED: LEVOFLOXACIN 750 MG TABLET PO SCH (10:00)
[2016-08-07] MEDS ORDERED: NORMAL SALINE IV SCH (10:00)
[2016-08-07] MEDS: ENOXAPARIN SODIUM INJ 40 MG/0.4 ML DISP.SYRIN SUBCUT SCH (10:01)
--- NOTE | 2016-08-07 13:27 | PDOC PROGRESS REPORT ---
Subjective Progress Note for:: 08/07/16 Subjective:: The patient is resting in his bed. He had no overnight events. He denies fever chills. No chest pain, shortness of breath or heart palpitations. No nausea, vomiting or diarrhea. No dysuria, frequency or hematuria. Physical Exam Vital Signs: Temp Pulse Resp BP Pulse Ox 98.0 F 65 16 90/46 L 100 08/07/16 08:07 08/07/16 08:07 08/07/16 03:41 08/07/16 08:07 08/07/16 08:07 Intake & Output 08/06/16 08/07/16 08/08/16 06:59 06:59 06:59 Intake Total 1940 2450 Output Total 3200 2100 Balance -1260 350 Weight 59.5 kg 61.2 kg General appearance: PRESENT: no acute distress, cooperative, thin Head exam: PRESENT: atraumatic, normocephalic Mouth exam: PRESENT: moist, tongue midline Respiratory exam: PRESENT: clear to auscultation maury. ABSENT: rales, rhonchi, wheezes Cardiovascular exam: PRESENT: RRR. ABSENT: diastolic murmur, rubs, systolic murmur GI/Abdominal exam: PRESENT: normal bowel sounds, soft, other - He has an ostomy in the left lower abdomen that is working properly. He also has a suprapubic catheter in place that is working properly as well.. ABSENT: distended, guarding, mass, organolmegaly, rebound, tenderness Extremities exam: PRESENT: full ROM. ABSENT: calf tenderness, clubbing, pedal edema Neurological exam: PRESENT: alert, awake, oriented to person, oriented to place , oriented to time, oriented to situation, CN II-XII grossly intact. ABSENT: motor sensory deficit Psychiatric exam: PRESENT: appropriate affect, normal mood. ABSENT: homicidal ideation, suicidal ideation Skin exam: PRESENT: dry, intact, warm, other. ABSENT: cyanosis, rash Results Laboratory Results: 08/06/16 09:30 08/07/16 05:35 08/07/16 05:35 Sodium 141.1 Potassium 3.7 Chloride 105 Carbon Dioxide 28 Anion Gap 8 BUN 8 Creatinine 0.52 Est GFR ( Amer) > 60 Est GFR (Non-Af Amer) > 60 Glucose 100 Calcium 7.3 L Impressions: Guidance Fluoroscopy 08/04/16 00:00 IMPRESSION: SUCCESSFUL PLACEMENT OF A 5 FR DUAL LUMEN 34 CM PICC IN THE RIGHT BASILIC VEIN. Interventional Vascular Procedure 08/04/16 00:00 IMPRESSION: SUCCESSFUL PLACEMENT OF A 5 FR DUAL LUMEN 34 CM PICC IN THE RIGHT BASILIC VEIN. PICC Line Insertion 08/04/16 08:00 IMPRESSION: SUCCESSFUL PLACEMENT OF A 5 FR DUAL LUMEN 34 CM PICC IN THE RIGHT BASILIC VEIN. Assessment & Plan - Diagnosis (1) Osteomyelitis hip Is this a current diagnosis for this admission?: YesPlan: The patient's vancomycin and imipenem have been stopped today. Unfortunately we have no cultures to direct therapy. His gentamicin has been stopped. I am starting the patient on IV daptomycin 6 mg/kg daily. This is day #5 out of 42 days of appropriate treatment. The patient would like to go home with IV antibiotics. I have consulted the discharge planners and written a prescription for the daptomycin. Hopefully he can go home and complete his course of IV antibiotic therapy there. (2) Sacral decubitus ulcer, stage IV Is this a current diagnosis for this admission?: YesPlan: Status post surgical debridement. Plan as above. (3) History of Clostridium difficile colitis Is this a current diagnosis for this admission?: YesPlan: He has been ruled out for Clostridium difficile infection during this hospitalization. (4) Hyponatremia Is this a current diagnosis for this admission?: YesPlan: Stable (5) Severe protein-calorie malnutrition Is this a current diagnosis for this admission?: YesPlan: The patient is encouraged to use supplements and eat as much as possible.He needs to maximize his nutritional status. (6) Paraplegia following spinal cord injury Is this a current diagnosis for this admission?: YesPlan: He is at his baseline (7) History of MRSA infection Is this a current diagnosis for this admission?: YesPlan: He will complete a course of IV daptomycin. Unfortunately we have no cultures from his surgical debridement to direct antibiotic therapy. This is infection presumably is MRSA due to his history. (8) Chronic pain Qualifiers: Chronic pain type: other chronic postprocedural pain Qualified Code( s): G89.28 - Other chronic postprocedural pain Is this a current diagnosis for this admission?: YesPlan: Pain is much better controlled on fentanyl patch with his home regimen of OxyContin. - Time Time Spent with patient: 15-24 minutes Disposition: Inpatient hospitalization remains necessary for parenteral antibiotics. The discharge planners are working on getting this set up at home. Hopefully he can be discharged home as soon as this is been set up.
[2016-08-08] MEDS: COLLAGENASE CLOSTRIDIUM HIST. OINT 30 GM TOP SCH ×2 (04:04→15:18)
[2016-08-08] MEDS: MORPHINE SULFATE 10 MG/ML INJ IV PRN ×5 (04:05→22:57)
[2016-08-08] MEDS: GABAPENTIN 300 MG CAPSULE PO SCH ×4 (04:06→21:04)
[2016-08-08] MEDS: OXYCODONE HCL SR 10 MG TABLET PO SCH ×3 (05:39→22:21)
[2016-08-08] MEDS: METRONIDAZOLE 500 MG TABLET PO SCH ×3 (05:39→22:20)
[2016-08-08] MEDS ORDERED: NORMAL SALINE IV SCH (10:00)
[2016-08-08] MEDS ORDERED: DAPTOMYCIN IV SCH (10:00)
[2016-08-08] MEDS ORDERED: FENTANYL 25 MCG/HR PATCH.TD72 TD SCH (10:00)
[2016-08-08] MEDS: LACTOBACILLUS ACIDOPHILUS 250 MG TAB PO SCH ×2 (10:38→18:09)
[2016-08-08] MEDS: NORMAL SALINE IV SCH (10:38)
[2016-08-08] MEDS: DAPTOMYCIN IV SCH (10:38)
[2016-08-08] MEDS: ENOXAPARIN SODIUM INJ 40 MG/0.4 ML DISP.SYRIN SUBCUT SCH (10:39)
[2016-08-08] MEDS: NORMAL SALINE 10 ML SDV (SCHEDULED) IV SCH ×2 (10:40→22:57)
--- NOTE | 2016-08-08 10:49 | PDOC PROGRESS REPORT ---
Subjective Progress Note for:: 08/08/16 Subjective:: The patient is resting in his bed. We were considering discharge to home today with IV antibiotics however I was notified by the discharge planners that he is in the donfl hole with Medicare and he cannot afford any IV antibiotics at home. A referral [facility] being made [facility] a [facility] facility for now. Overall the patient has no acute overnight events. He denies fever chills. No chest pain, shortness of breath or heart palpitations. No nausea, vomiting or diarrhea. No dysuria, frequency or hematuria. His biggest complaint is continued pain at the site of his wound Physical Exam Vital Signs: Temp Pulse Resp BP Pulse Ox 98.0 F 68 16 86/39 L 100 08/07/16 15:03 08/08/16 04:00 08/08/16 04:00 08/08/16 04:00 08/08/16 04:00 Intake & Output 08/07/16 08/08/16 08/09/16 06:59 06:59 06:59 Intake Total 2450 300 Output Total 2100 1700 Balance 350 -1400 Weight 61.2 kg 61 kg Results Laboratory Results: 08/06/16 09:30 08/07/16 05:35 08/02/16 19:05 Blood Blood Culture - Final NO GROWTH IN 5 DAYS Impressions: Guidance Fluoroscopy 08/04/16 00:00 IMPRESSION: SUCCESSFUL PLACEMENT OF A 5 FR DUAL LUMEN 34 CM PICC IN THE RIGHT BASILIC VEIN. Interventional Vascular Procedure 08/04/16 00:00 IMPRESSION: SUCCESSFUL PLACEMENT OF A 5 FR DUAL LUMEN 34 CM PICC IN THE RIGHT BASILIC VEIN. PICC Line Insertion 08/04/16 08:00 IMPRESSION: SUCCESSFUL PLACEMENT OF A 5 FR DUAL LUMEN 34 CM PICC IN THE RIGHT BASILIC VEIN. Assessment & Plan - Diagnosis (1) Osteomyelitis hip Is this a current diagnosis for this admission?: YesPlan: The patient's vancomycin and imipenem have been stopped.. Unfortunately we have no cultures to direct therapy. His gentamicin has been stopped as well. I am starting the patient on IV daptomycin 6 mg/kg daily. This is day #6 out of 42 days of appropriate treatment. The patient will be referred out to a skilled facility to complete his IV antibiotics. (2) Sacral decubitus ulcer, stage IV Is this a current diagnosis for this admission?: YesPlan: Status post surgical debridement. Plan as above. (3) History of Clostridium difficile colitis Is this a current diagnosis for this admission?: YesPlan: He has been ruled out for Clostridium difficile infection during this hospitalization. (4) Hyponatremia Is this a current diagnosis for this admission?: Yes (5) Severe protein-calorie malnutrition Is this a current diagnosis for this admission?: YesPlan: The patient is encouraged to use supplements and eat as much as possible. He needs to maximize his nutritional status to be considered for possible surgical repair and flap placement. (6) Paraplegia following spinal cord injury Is this a current diagnosis for this admission?: YesPlan: He is at his baseline (7) History of MRSA infection Is this a current diagnosis for this admission?: YesPlan: He will complete a course of IV daptomycin. Unfortunately we have no cultures from his surgical debridement to direct antibiotic therapy. This infection presumably is MRSA due to his history. (8) Chronic pain Qualifiers: Chronic pain type: other chronic postprocedural pain Qualified Code( s): G89.28 - Other chronic postprocedural pain Is this a current diagnosis for this admission?: YesPlan: Pain is much better controlled on fentanyl patch with his home regimen of OxyContin. - Time Time Spent with patient: 15-24 minutes Disposition: Inpatient hospitalization remains necessary. The patient needs to complete a 6 week course of parenteral antibiotics. He will complete a course of daptomycin and we will check a CBC, CMP, CK level and sed rate weekly. During this time he needs to maximize his nutritional status as much as possible. He would not be a candidate in a tertiary center for any sort of surgical debridement of the bone and flap placement until his osteomyelitis is been treated and his nutritional status is better. This is been discussed with the patient and right now he is trying to push supplements. He is going to be unable to go home with home IV antibiotics due to his insurance situation. Efforts are being made to get him into a skilled facility to complete these antibiotics. For now he will remain in the hospital.
--- NOTE | 2016-08-08 16:30 | PDOC DISCHARGE SUMMARY ---
General - Admit/Disc Date/PCP Admission Date/Primary Care Provider: 08/02/16 18:14 CORNEL FOOTE Discharge Date: 08/08/16 - Discharge Diagnosis (1) Osteomyelitis hip Is this a current diagnosis for this admission?: YesSummary: He will continue IV daptomycin to complete a 42 day course of treatment. This is been set up at a [facility] facility. This is day #6 out of 42 days of treatment. (2) Sacral decubitus ulcer, stage IV Is this a current diagnosis for this admission?: YesSummary: With underlying osteomyelitis. After he completes his antibiotic therapy his primary care provider should send him to a tertiary center for consideration of extensive debridement and flap closure. He needs to maximize his nutritional status in the meantime. (3) History of Clostridium difficile colitis Is this a current diagnosis for this admission?: YesSummary: He will continue prophylactic Flagyl during the course of his treatment. (4) Hyponatremia Is this a current diagnosis for this admission?: YesSummary: Chronic and stable (5) Severe protein-calorie malnutrition Is this a current diagnosis for this admission?: YesSummary: Continue supplements and good p.o. intake. (6) Paraplegia following spinal cord injury Is this a current diagnosis for this admission?: YesSummary: He is at his baseline (7) History of MRSA infection Is this a current diagnosis for this admission?: YesSummary: There were no cultures to drive therapy. He does have a history of MRSA. (8) Chronic pain Is this a current diagnosis for this admission?: YesSummary: Chronic pain with continuous narcotic use. He will continue his home regimen of narcotics at the facility. - Additional Information Resuscitation Status: Full Code Discharge Diet: As Tolerated, Regular, Other (Comments) - Supplements Discharge Activity: Activity As Tolerated Home Medications: Gabapentin 600 mg PO QID 12/03/15 Oxycodone HCl [Oxycontin] 30 mg PO Q8HP PRN 12/03/15 Oxymorphone HCl [Opana] 10 mg PO Q6HP PRN 12/03/15 Acetaminophen [Tylenol 325 mg Tablet] 650 mg PO Q4HP PRN tablet 08/08/16 Collagenase Clostridium Hist. [Santyl Ointment 30 gm] 1 applic TOP BID #1 tube 08/08/16 Daptomycin [Cubicin Inj 500 mg Vial] 367 mg IV DAILY vial 08/08/16 Metronidazole [Flagyl 500 mg Tablet] 500 mg PO Q8 #180 tablet 08/08/16 Saccharomyces Boulardii [Florastor] 500 mg PO BID #120 capsule 08/08/16 History of Present Illness History of Present Illness: SONU MENARD is a 55 year old male who presented to the emergency room with an infected stage IV decubitus ulcer. Hospital Course Hospital Course: He will be discharged to a skilled facility today to receive his IV antibiotics. Physical Exam Vital Signs: Temp Pulse Resp BP Pulse Ox 98.1 F 78 18 108/55 L 99 08/08/16 15:01 08/08/16 15:01 08/08/16 15:01 08/08/16 15:01 08/08/16 15:01 Intake & Output 08/07/16 08/08/16 08/09/16 06:59 06:59 06:59 Intake Total 2450 300 700 Output Total 2100 1700 800 Balance 350 -1400 -100 Weight 61.2 kg 61 kg Results Laboratory Results: 08/06/16 09:30 08/07/16 05:35 08/02/16 19:05 Blood Blood Culture - Final NO GROWTH IN 5 DAYS Impressions: Guidance Fluoroscopy 08/04/16 00:00 IMPRESSION: SUCCESSFUL PLACEMENT OF A 5 FR DUAL LUMEN 34 CM PICC IN THE RIGHT BASILIC VEIN. Interventional Vascular Procedure 08/04/16 00:00 IMPRESSION: SUCCESSFUL PLACEMENT OF A 5 FR DUAL LUMEN 34 CM PICC IN THE RIGHT BASILIC VEIN. PICC Line Insertion 08/04/16 08:00
[2016-08-08] MEDS: NORMAL SALINE 1000 ML 1,000 ML IV PRN (18:33)
[2016-08-08] MEDS: OXYCODONE HCL IR 5 MG TABLET PO PRN (19:53)
[2016-08-08] MEDS ORDERED: COLLAGENASE CLOSTRIDIUM HIST. OINT 30 GM ONE (22:48)
[2016-08-09] MEDS: GABAPENTIN 300 MG CAPSULE PO SCH ×4 (02:58→21:33)
[2016-08-09] MEDS: OXYCODONE HCL IR 5 MG TABLET PO PRN ×3 (03:03→17:28)
[2016-08-09] MEDS: COLLAGENASE CLOSTRIDIUM HIST. OINT 30 GM TOP SCH ×3 (03:06→17:42)
[2016-08-09] MEDS: MORPHINE SULFATE 10 MG/ML INJ IV PRN ×3 (03:51→13:42)
[2016-08-09] MEDS: METRONIDAZOLE 500 MG TABLET PO SCH ×2 (05:55→13:25)
[2016-08-09] MEDS: OXYCODONE HCL SR 10 MG TABLET PO SCH ×3 (05:56→21:33)
[2016-08-09 08:22] LABS: HEMATOCRIT 35.2 % (37.9-51.0); HEMOGLOBIN 11.1 g/dL (13.5-17.0); HGB HCT DIFFERENCE -1.9; MEAN CORPUSCULAR HEMOGLOBIN 27.2 pg (27.0-33.4); MEAN CORPUSCULAR HGB CONC 31.5 g/dL (32.0-36.0); MEAN CORPUSCULAR VOLUME 86 fl (80-97); RED BLOOD COUNT 4.09 10^6/uL (4.35-5.55); RED CELL DISTRIBUTION WIDTH 16.5 % (11.5-14.0); WHITE BLOOD COUNT 5.1 10^3/uL (4.0-10.5)
--- NOTE | 2016-08-09 09:25 | PDOC PROGRESS REPORT ---
Subjective Subjective:: The patient is an unfortunate 55-year-old male who is paraplegic from a prior injury. He has chronic stage IV decubitus ulcers. He presented to the emergency room from the wound clinic. His brother had found him at home in poor condition. He apparently had obvious rotting flesh and odor upon entering home. He was sent to the emergency room from the wound care clinic for further evaluation. The patient does have a diverting ostomy and a suprapubic catheter that he manages on his own. At one point he had a home health agency out of [place] but they have not come to the home in some time. The patient was admitted to the hospital. He went to the operating room with Dr. Auguste for debridement. He was admitted to the hospital and started on broad-spectrum IV antibiotics. Unfortunately deep cultures were not obtained during his surgical debridement. He does have a history of MRSA infection in the past. He also has a history of Clostridium difficile colitis as well. At this point his IV antibiotics have been narrowed to IV daptomycin. I feel like his infection is MRSA. It is felt that he has underlying osteomyelitis due to his markedly elevated sed rate and CRP that is improving with treatment. Initially efforts were being made for him to receive long-term IV antibiotics in the home. Unfortunately he is in the donut hole with Medicare at this point and no home IV antibiotics will be possible due to cost. He was referred for [facility] placement and as of yesterday he had a bed offer late in the afternoon. I was trying to get him out yesterday afternoon and began a discharge summary but my summary of the hospitalization was not put in it. I was going to cancel it but accidentally signed it. So that discharge summary is not complete. He was unable to go to the skilled facility yesterday afternoon when he got the bed offered due to the fact that his medications would not be available until Thursday. The patient does have chronic pain with continuous narcotic use. At home he takes Opana every 6 hours and OxyContin every 8 hours. We do not have Opana available here in the hospital so he currently has a fentanyl patch in place as well as OxyContin with oxycodone for breakthrough pain. All of his scripts are in the chart for discharge on Thursday. When I saw the patient today he is resting comfortably in the bed. He states that he had a good night and slept well. Ultimately he would like to go to a tertiary center for consideration of surgical debridement of the bone and reconstruction with flap closure. He will need to complete his course of IV antibiotics first and he will need to maximize his nutritional status. His primary care physician can make the referral when all of this is complete. He is encouraged to drink plenty of supplements and eat as much as possible. He has had no fever or chills overnight. No chest pain, shortness of breath or heart palpitations. No nausea, vomiting or diarrhea. No dysuria, frequency or hematuria. Physical Exam Vital Signs: Temp Pulse Resp BP Pulse Ox 98.2 F 66 15 87/49 L 99 08/09/16 07:34 08/09/16 07:34 08/09/16 07:34 08/09/16 07:34 08/09/16 07:34 Intake & Output 08/08/16 08/09/16 08/10/16 06:59 06:59 06:59 Intake Total 300 2090 Output Total 1700 1650 Balance -1400 440 Weight 61 kg General appearance: PRESENT: no acute distress, thin, other - Malnourished Head exam: PRESENT: atraumatic, normocephalic Mouth exam: PRESENT: moist, tongue midline Respiratory exam: PRESENT: clear to auscultation maury. ABSENT: rales, rhonchi, wheezes Cardiovascular exam: PRESENT: RRR. ABSENT: diastolic murmur, rubs, systolic murmur GI/Abdominal exam: PRESENT: normal bowel sounds, soft. ABSENT: distended, guarding, mass, organolmegaly, rebound, tenderness Extremities exam: ABSENT: calf tenderness, clubbing, pedal edema Neurological exam: PRESENT: alert, awake, oriented to person, oriented to place , oriented to time, oriented to situation, CN II-XII grossly intact. ABSENT: motor sensory deficit Psychiatric exam: PRESENT: appropriate affect, normal mood. ABSENT: homicidal ideation, suicidal ideation Skin exam: PRESENT: other - Sacral decubitus ulcer was not examined as the nursing staff to just changed his dressing. Results Laboratory Results: 08/09/16 07:55 08/07/16 05:35 08/09/16 07:55 WBC 5.1 RBC 4.09 L Hgb 11.1 L Hct 35.2 L MCV 86 MCH 27.2 MCHC 31.5 L RDW 16.5 H Plt Count 256 Impressions: Guidance Fluoroscopy 08/04/16 00:00 IMPRESSION: SUCCESSFUL PLACEMENT OF A 5 FR DUAL LUMEN 34 CM PICC IN THE RIGHT BASILIC VEIN. Interventional Vascular Procedure 08/04/16 00:00 IMPRESSION: SUCCESSFUL PLACEMENT OF A 5 FR DUAL LUMEN 34 CM PICC IN THE RIGHT BASILIC VEIN. PICC Line Insertion 08/04/16 08:00 IMPRESSION: SUCCESSFUL PLACEMENT OF A 5 FR DUAL LUMEN 34 CM PICC IN THE RIGHT BASILIC VEIN. Assessment & Plan - Diagnosis (1) Osteomyelitis hip Is this a current diagnosis for this admission?: YesPlan: The patient's vancomycin and imipenem have been stopped.. Unfortunately we have no cultures to direct therapy. His gentamicin has been stopped as well. The patient currently is on IV daptomycin 6 mg/kg daily. This is day #7 out of 42 days of appropriate treatment. The patient has a bed at a skilled facility to complete his IV antibiotics. He will be stable for discharge Thursday if there are no events over the weekend. (2) Sacral decubitus ulcer, stage IV Is this a current diagnosis for this admission?: YesPlan: Status post surgical debridement. Plan as above. (3) History of Clostridium difficile colitis Is this a current diagnosis for this admission?: YesPlan: He has been ruled out for Clostridium difficile infection during this hospitalization. He currently is on prophylactic Flagyl as well as a probiotic. (4) Hyponatremia Is this a current diagnosis for this admission?: YesPlan: Resolved (5) Severe protein-calorie malnutrition Is this a current diagnosis for this admission?: YesPlan: The patient is encouraged to use supplements and eat as much as possible. He needs to maximize his nutritional status to be considered for possible surgical repair and flap placement. (6) Paraplegia following spinal cord injury Is this a current diagnosis for this admission?: YesPlan: He is at his baseline (7) History of MRSA infection Is this a current diagnosis for this admission?: YesPlan: He will complete a course of IV daptomycin. Unfortunately we have no cultures from his surgical debridement to direct antibiotic therapy. This infection presumably is MRSA due to his history. (8) Chronic pain Qualifiers: Chronic pain type: other chronic postprocedural pain Qualified Code( s): G89.28 - Other chronic postprocedural pain Is this a current diagnosis for this admission?: YesPlan: He has chronic pain with continuous narcotic use. Currently on the 25 mcg fentanyl patch. He has OxyContin 30 mg every 8 hours with oxycodone 5 mg for breakthrough pain. His pain is much better controlled on fentanyl patch with his home regimen of OxyContin. He seems to be quite comfortable - Time Time Spent with patient: 15-24 minutes Disposition: Inpatient hospitalization remains necessary for parenteral antibiotics. If the patient remained stable over the weekend he can likely be discharged to a penitentiary facility to complete his course of therapy.
[2016-08-09] MEDS: ENOXAPARIN SODIUM INJ 40 MG/0.4 ML DISP.SYRIN SUBCUT SCH (10:26)
[2016-08-09] MEDS: LACTOBACILLUS ACIDOPHILUS 250 MG TAB PO SCH ×2 (10:31→17:28)
[2016-08-09] MEDS: DAPTOMYCIN IV SCH (10:31)
[2016-08-09] MEDS: NORMAL SALINE IV SCH (10:31)
[2016-08-09] MEDS: NORMAL SALINE 10 ML SDV (SCHEDULED) IV SCH ×2 (10:32→21:34)
[2016-08-09] MEDS: NORMAL SALINE 1000 ML 1,000 ML IV PRN (10:39)
[2016-08-10] MEDS: OXYCODONE HCL IR 5 MG TABLET PO PRN (00:12)
[2016-08-10] MEDS: NORMAL SALINE 1000 ML 1,000 ML IV PRN ×2 (00:13→22:59)
[2016-08-10] MEDS: GABAPENTIN 300 MG CAPSULE PO SCH ×4 (04:37→20:55)
[2016-08-10] MEDS: OXYCODONE HCL SR 10 MG TABLET PO SCH ×3 (05:22→21:00)
[2016-08-10 05:56] LABS: ANION GAP 7 (5-19); BLOOD UREA NITROGEN 9 mg/dL (7-20); CALCIUM 8.5 mg/dL (8.4-10.2); CARBON DIOXIDE 32 mmol/L (22-30); CHLORIDE 99 mmol/L (98-107); CREATININE RESULT 0.43 mg/dL (0.52-1.25); GLUCOSE 92 mg/dL (75-110); MAGNESIUM 2.2 mg/dL (1.6-2.3); POTASSIUM 4.4 mmol/L (3.6-5.0); SODIUM 137.9 mmol/L (137-145)
--- NOTE | 2016-08-10 10:03 | PROGRESS NOTE E ---
Progress Note NAME: SONU MENARD : 1960 AGE: 55Y DATE: 08/10/2016 ROOM: 212 SUBJECTIVE: The patient is currently lying in bed. He states that he feels the same as yesterday. He does admit to some back pain. He denies any nausea, vomiting, diarrhea, no shortness of breath, dizziness, chest pain, no fever or chills. The patient has been afebrile. His blood pressures have been in a good range, and the patient does not voice any other concerns at this time. REVIEW OF SYSTEMS: Rest of review of systems is negative. MEDICATIONS: Medications have been reviewed. OBJECTIVE: GENERAL: The patient is a 55-year-old male who is awake and alert. He is oriented to person, place, time and situation. He is verbal and conversational and does to appear to be in any acute distress. VITAL SIGNS: Temperature is 98.2, pulse 69, respirations 18, blood pressure 100/60, oxygen saturation is 96% on room air. SKIN: Warm and dry. No rashes, not diaphoretic. HEENT: Pupils are equal, round, reactive to light and accommodation. Conjunctivae pink. NECK: There is no JVP. CARDIOVASCULAR: Heart is regular. There is no murmur or rub. CHEST: Clear, symmetrical, and unlabored. ABDOMEN: Soft, nontender and nondistended. BACK: No CVA tenderness or sacral edema. EXTREMITIES: No clubbing, cyanosis or edema. The patient has chronic contractures. PSYCHIATRIC: Appropriate affect. Pleasant mood. DIAGNOSTIC DATA: Lab values are as follows: Hematology obtained on 08/09/2016: WBCs are 5.1, hemoglobin 11.1, hematocrit 35.3, and platelet count is 256,000. Chemistries obtained on 08/10/2016: Sodium is 137, potassium 4.4, chloride 99 carbon dioxide 32, BUN 9, creatinine 1.3, glucose 92, calcium 8.5, magnesium is 2.2. Microbiology: Blood cultures obtained on 08/02/2016 reveals no growth. IMPRESSION AND PLAN: 1. OSTEOMYELITIS OF THE PATIENT'S HIP. The patient is currently on IV daptomycin. This is day 8 out of 42 days of appropriate treatment. The patient can go to SNF in the a.m. 2. SACRAL DECUBITUS ULCER STAGE IV. The patient is status post surgical debridement. 4. HYPONATREMIA. This has resolved. 5. SEVERE PROTEIN CALORIE MALNOURISHMENT. Have recommended continue supplements, encourage p.o. intake. 6. PARAPLEGIA FROM SPINAL CORD INJURY. The patient is at baseline. 7. HISTORY OF MRSA. The patient is being covered with daptomycin. 8. CHRONIC PAIN. Will continue the patient's medications. 9. OPIATE DEPENDENCE CONTINUOUS. Continue current medications. 10. HISTORY OF C DIFF COLITIS. Will continue probiotic therapy. The patient has been ruled out for C diff. DISPOSITION: The patient is a FULL CODE. Pending the patient's symptomatology and diagnostic findings, will re-evaluate in the a.m. TIME: Time spent on this followup including assessment, plan, physical examination, patient education, and review of previous records is 25 minutes. DICTATING PHYSICIAN: JESSICA COBB NP [id number] PHY#: [id number] ID: [id number] JOB#: [id number] ACCT: [id number] cc: >
[2016-08-10] MEDS: NORMAL SALINE 10 ML SDV (SCHEDULED) IV SCH ×2 (10:30→21:01)
[2016-08-10] MEDS: COLLAGENASE CLOSTRIDIUM HIST. OINT 30 GM TOP SCH ×2 (10:30→18:13)
[2016-08-10] MEDS: LACTOBACILLUS ACIDOPHILUS 250 MG TAB PO SCH ×2 (10:31→18:15)
[2016-08-10] MEDS: ENOXAPARIN SODIUM INJ 40 MG/0.4 ML DISP.SYRIN SUBCUT SCH (10:32)
[2016-08-10] MEDS: NORMAL SALINE IV SCH (10:34)
[2016-08-10] MEDS: DAPTOMYCIN IV SCH (10:34)
[2016-08-10] MEDS ORDERED: FENTANYL 50 MCG/HR PATCH.TD72 TD ONE (17:00)
[2016-08-11] MEDS ORDERED: OXYCODONE HCL IR 5 MG TABLET PO ONE (01:30)
[2016-08-11] MEDS: GABAPENTIN 300 MG CAPSULE PO SCH ×3 (02:18→15:26)
[2016-08-11] MEDS: OXYCODONE HCL SR 10 MG TABLET PO SCH ×2 (05:41→13:22)
[2016-08-11] MEDS: LACTOBACILLUS ACIDOPHILUS 250 MG TAB PO SCH (09:57)
[2016-08-11] MEDS: ENOXAPARIN SODIUM INJ 40 MG/0.4 ML DISP.SYRIN SUBCUT SCH (09:58)
[2016-08-11] MEDS: DAPTOMYCIN IV SCH (09:58)
[2016-08-11] MEDS: NORMAL SALINE IV SCH (09:58)
[2016-08-11] MEDS: COLLAGENASE CLOSTRIDIUM HIST. OINT 30 GM TOP SCH (09:59)
[2016-08-11] MEDS: NORMAL SALINE 10 ML SDV (SCHEDULED) IV SCH (10:00)
--- NOTE | 2016-08-11 10:23 | TRANSFER SUMMARY E ---
Transfer Summary NAME: SONU MENARD : 1960 AGE: 55Y ADMITTED: 08/02/2016 TRANSFERRED: 08/11/2016 PRIMARY CARE PROVIDER: [facility]. CODE STATUS: FULL CODE. DISCHARGE DIAGNOSES: 1. Osteomyelitis of the hip. 2. Stage IV sacral decubitus ulcer. 3. Hyponatremia, chronic and stable. 4. Severe calorie protein malnourishment. 5. Paraplegia following spinal cord injury at baseline. 6. Chronic pain with subsequent opiate dependence which is continuous. 7. History of MRSA. 8. History of C difficile colitis. DISCHARGE MEDICATIONS: 1. Tylenol 650 mg p.o. q.4 h. p.r.n. 2. Santyl 1 topical application b.i.d. to sacral ulcer. 3. Daptomycin 367 mg IV daily x 33 more doses. 4. Duragesic 50 mcg patch q.72 h. 1 patch 0 refills. 5. Gabapentin 600 mg p.o. q.i.d. 6. OxyIR 5 mg tablet 10 mg tablet p.o. q.6 h. p.r.n. 24 tabs with 0 refills. 7. Oxycodone SR 10 mg tablets 30 mg p.o. q.8 h. 27 tablets with 0 refills. 8. Florastor 500 mg p.o. b.i.d. DIET: Regular as tolerated, recommend protein supplements. ACTIVITY: Per rehab standards. HISTORY OF PRESENT ILLNESS: The patient is a 55-year-old male with a past medical history of paraplegia and subsequent sacral decubitus ulcers. The patient presented to the emergency department with a chief complaint of "rotting flesh." The patient had been undergoing treatment at the wound clinic and presented from home at the insistence of his brother who found him in a frightful state with obvious foul-smelling flesh based on the odor upon entering the room of the patient's home. Upon visualization of the patient's chronic wounds, it appears that they were infected. The patient stated at the clinic that his symptoms had only been getting worse and had had not much improvement. After the patient was previously discharged from a SNF where he was receiving a wound VAC before being discharged home; however, it did not appear that the wound VAC was continued. The patient has a diverting ostomy and a suprapubic catheter where he manages on his own. The patient apparently used to have home health but is unable to recall the last time they saw him. The patient was seen by surgery prior to this admission and was taken to the OR for debridement. The hospitalists were asked to admit for further IV management. Upon review of previous records, it shows polymicrobial wound cultures with MRSA and multiple drug resistant strains and gram-negative organisms including Acinetobacter and Pseudomonas. The patient also has a history of C diff colitis although he has no symptoms of such at this time. Given these findings the patient was referred to the hospitalist for admission and management. HOSPITAL COURSE: The patient was admitted to the medical unit. The patient was taken to the OR and his area of wounds was debrided. The patient continued to have a white count and general malaise and it appears that the patient does have an osteomyelitis of the left hip. The patient was recommended IV antibiotic therapy for 6 weeks of daptomycin. Unfortunately there were no cultures made available to direct therapy and the patient has elected for conservative management at this time to include IV antibiotics and has declined MRI for now. This can be reevaluated in an outpatient setting. The patient will continue his therapy at SNF. DIAGNOSTICS: Lab values are as follows: Hematology obtained on 08/09/2016: WBCs are 5.1, hemoglobin is 11.1, hematocrit is 35.2, and platelet count is 256,000. Coagulation obtained on 08/04/2016: PT is 13.8, INR 0.99. Chemistry obtained on 08/09/2016: Sodium is 137, potassium 4.4, chloride 99, carbon dioxide 32, BUN 9, creatinine 1.3, glucose 92, calcium is 8.5, phosphorus is 3.4, magnesium is 2.2, bilirubin is 0.5, AST 15, ALT is 16, alkaline phosphatase 108. C-reactive protein is 61, total protein 6.3, albumin 2.9. Toxicology obtained on 08/07/2016: Vancomycin trough of 12.9. Serologies obtained on 08/05/2016: C diff toxin is negative. Microbiology: Blood culture on 08/02/2016 reveal no growth. PHYSICAL EXAMINATION: GENERAL: The patient is a frail, chronically ill-appearing 55-year-old male who is awake, alert and oriented to person, place, time and situation. He is verbal and conversational and does not appear to be in acute distress. VITAL SIGNS: Temperature 98.2, pulse 78, respirations 18, blood pressure 95/59, oxygen saturation 98% on room air. SKIN: Pale and dry. No rash, not diaphoretic. HEENT: Pupils are reactive. Conjunctivae are pink. There is no JVP. CARDIOVASCULAR: Heart is regular with no murmur or rub. CHEST: Clear, symmetrical and unlabored. ABDOMEN: Soft, diverting urostomy and ileostomy noted. EXTREMITIES: Contracted, no edema. Warm to the touch. PSYCHIATRIC: Appropriate affect, pleasant mood. TRANSFER PLANNIN. The patient will be received to rehab. 2. The patient is advised to [facility] for further evaluation and management and workup, possibly consider MRI or further cultures given the result of the duration of the patient's current treatment. Time spent on this transfer, including physical examination, patient education, patient education and review of records is 40 minutes. DICTATING PHYSICIAN: JESSICA COBB NP [id number] PHY#: [id number] ID: [id number] JOB#: [id number] ACCT: [id number] cc:JESSICA COBB NP > MTDD
[2016-08-11] MEDS ORDERED: OXYCODONE HCL IR 5 MG TABLET PO PRN (10:37)
[2016-08-11] MEDS: OXYCODONE HCL IR 5 MG TABLET PO PRN ×2 (11:20→15:26)
[2016-08-11 16:10] VITALS: BP 88/44
[2016-08-13] MEDS ORDERED: FENTANYL 50 MCG/HR PATCH.TD72 TD SCH (10:00)
== END 2016-08-11 18:45 | DRG 463 ==
LOC: ER 16:29 → UNDOADMIN 18:04 → EH 18:04 → 2N 19:55
PROVIDERS: ADMIT Internal Medicine; ATTEND Internal Medicine
PROC: 0HB6XZZ Excision of Back Skin, External Approach (ICD-10-PCS; principal; 2016-08-02)
PROC: 02HV33Z Insertion of Infusion Device into Superior Vena Cava, Percutaneous Approach (ICD-10-PCS; 2016-08-04)
PROC: B5181ZA Fluoroscopy of Superior Vena Cava using Low Osmolar Contrast, Guidance (ICD-10-PCS; 2016-08-04)
PROC: B548ZZA Ultrasonography of Superior Vena Cava, Guidance (ICD-10-PCS; 2016-08-04)
DX: M86.8X8 Other osteomyelitis, other site (principal); L89.154 Pressure ulcer of sacral region, stage 4; E43 Unspecified severe protein-calorie malnutrition; Z68.1 Body mass index [BMI] 19.9 or less, adult; E87.1 Hypo-osmolality and hyponatremia; G82.20 Paraplegia, unspecified; Z87.19 Personal history of other diseases of the digestive system; G89.29 Other chronic pain; Z93.3 Colostomy status; Z93.51 Cutaneous-vesicostomy status; Z79.899 Other long term (current) drug therapy; Z87.891 Personal history of nicotine dependence; Z86.14 Personal history of Methicillin resistant Staphylococcus aureus infection; Z88.0 Allergy status to penicillin
CPT/HCPCS: 36415; 36569; 76937; 77001; 80048; 80053; 80170; 80202; 83735; 84100; 85025; 85027; 85610; 86140; 87040; 87493; 99284; J0743; J0878; J1580; J1642; J1650; J2270; J2405; J3370; J3490; J7030; J7060

== ENCOUNTER 2016-08-27 22:38 | Emergency (ER) | payer MEDICARE ==
[2016-08-27] MEDS ORDERED: NORMAL SALINE 1000 ML 3,000 ML IV ONE (22:59)
[2016-08-27] MEDS ORDERED: IBUPROFEN 600 MG TABLET PO ONE (23:00)
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
[2016-08-27 23:10] LABS: VENOUS BLOOD BASE EXCESS 4.9 mmol/L; VENOUS BLOOD HCO3 31.2 mmol/L (20-32); VENOUS BLOOD PCO2 52.6 mmHg (35-63); VENOUS BLOOD PH 7.39 (7.30-7.42)
[2016-08-27 23:19] LABS: PROTHROMBIN TIME 14.3 SEC (11.4-15.4)
[2016-08-27 23:20] LABS: HEMATOCRIT 36.5 % (37.9-51.0); HEMOGLOBIN 11.8 g/dL (13.5-17.0); HGB HCT DIFFERENCE -1.1; MEAN CORPUSCULAR HEMOGLOBIN 28.3 pg (27.0-33.4); MEAN CORPUSCULAR HGB CONC 32.3 g/dL (32.0-36.0); MEAN CORPUSCULAR VOLUME 88 fl (80-97); RED BLOOD COUNT 4.16 10^6/uL (4.35-5.55); RED CELL DISTRIBUTION WIDTH 16.8 % (11.5-14.0); WHITE BLOOD COUNT 6.7 10^3/uL (4.0-10.5)
[2016-08-27 23:22] LABS: ALANINE AMINOTRANSFERASE 27 U/L (21-72); ALBUMIN 2.9 g/dL (3.5-5.0); ALKALINE PHOSPHATASE 101 U/L (38-126); ANION GAP 10 (5-19); ASPARTATE AMINO TRANSFERASE 16 U/L (17-59); BILIRUBIN,DIRECT 0.3 mg/dL (0.0-0.4); BILIRUBIN,TOTAL 0.3 mg/dL (0.2-1.3); BLOOD UREA NITROGEN 16 mg/dL (7-20); CARBON DIOXIDE 28 mmol/L (22-30); CHLORIDE 97 mmol/L (98-107); CREATININE RESULT 0.46 mg/dL (0.52-1.25); GLUCOSE 116 mg/dL (75-110); POTASSIUM 4.5 mmol/L (3.6-5.0); SODIUM 135.3 mmol/L (137-145); TOTAL PROTEIN 5.6 g/dL (6.3-8.2)
--- NOTE | 2016-08-27 23:24 | RADIOLOGY REPORT (SQ) ---
EXAM DESCRIPTION: CHEST SINGLE VIEW COMPLETED DATE/TIME: 08/27/2016 11:05 pm REASON FOR STUDY: fever COMPARISON: 12/06/2015 EXAM PARAMETERS: NUMBER OF VIEWS: One view. TECHNIQUE: Single frontal radiographic view of the chest acquired. RADIATION DOSE: NA LIMITATIONS: None. FINDINGS: LUNGS AND PLEURA: No opacities, masses or pneumothorax. No pleural effusion. MEDIASTINUM AND HILAR STRUCTURES: No masses. Contour normal. HEART AND VASCULAR STRUCTURES: Heart normal in size. Normal vasculature. BONES: No acute findings. HARDWARE: PICC catheter unchanged. OTHER: No other significant finding. IMPRESSION: NO ACUTE RADIOGRAPHIC FINDING IN THE CHEST. TECHNICAL DOCUMENTATION: JOB ID: [id number]
[2016-08-27 23:41] LABS: BAND NEUTROPHILS % (MANUAL) 9 % (3-5); BASOPHILS % (MANUAL) 0 % (0-2); EOSINOPHILS % (MANUAL) 2 % (0-6); LYMPHOCYTES % (MANUAL) 7 % (13-45); TOTAL CELLS COUNTED 100
[2016-08-27 23:43] LABS: TOXIC GRANULATION SLIGHT
[2016-08-27 23:44] LABS: ANISOCYTOSIS 1+; PLATELET CLUMPS PRESENT; POLYCHROMASIA SLIGHT; TARGET CELLS SLIGHT
[2016-08-28 00:02] LABS: APPEARANCE,URINE CLOUDY; BILIRUBIN,URINE NEGATIVE (NEGATIVE); GLUCOSE, URINE NEGATIVE (NEGATIVE); KETONES,URINE NEGATIVE (NEGATIVE); LEUKOCYTE ESTERASE,URINE LARGE (NEGATIVE); NITRITE,URINE POSITIVE (NEGATIVE); PROTEIN,URINE NEGATIVE (NEGATIVE); URINE SPECIFIC GRAVITY 1.016; UROBILINOGEN,URINE NEGATIVE mg/dL (<2.0)
[2016-08-28] MEDS ORDERED: VANCOMYCIN HCL INJ 1000 MG VIAL IV ONE (00:23)
[2016-08-28] MEDS ORDERED: CEFTRIAXONE INJ 1000 MG VIAL IV ONE (00:24)
[2016-08-28] MEDS ORDERED: NORMAL SALINE 1000 ML 1,000 ML IV ONE (01:49)
[2016-08-28] MEDS ORDERED: NOREPINEPHRINE BITARTRATE INJ/PF 4 MG/4 ML SDV IV ONE (02:44)
[2016-08-28] MEDS: DEXTROSE 5%-WATER 250 ML with NOREPINEPHRINE BITARTRATE 4 MG IV PRN ×4 (02:45)
[2016-08-28] MEDS ORDERED: FENTANYL CITRATE INJ/PF 100 MCG/2 ML AMPUL IV ONE (03:33)
[2016-08-28 05:03] VITALS: BP 122/59
--- NOTE | 2016-08-28 08:15 | EKG REPORT ---
SEVERITY:- NORMAL ECG - SINUS RHYTHM : Confirmed by: Seth Rose MD 28-Aug-2016 08:14:52
--- NOTE | 2016-08-28 08:15 | EKG REPORT ---
SEVERITY:- OTHERWISE NORMAL ECG - SINUS TACHYCARDIA BORDERLINE RIGHT AXIS DEVIATION : Confirmed by: Seth Rose MD 28-Aug-2016 08:15:04
--- NOTE | 2016-09-14 21:44 | ER Document Report ---
Doctor's Note Notes: 09/14/16 21:43 i personally performed the services described in the documentation recorded by the scribe in my presence and it accurately and completely records my words and actions
== END 2016-08-28 04:55 | disposition short-term general hospital (02) ==
LOC: ER 22:38
DX: I95.9 Hypotension, unspecified (principal); R50.9 Fever, unspecified; M86.9 Osteomyelitis, unspecified; R00.0 Tachycardia, unspecified; R00.1 Bradycardia, unspecified; L89.314 Pressure ulcer of right buttock, stage 4; R05 Cough; M54.9 Dorsalgia, unspecified; G82.20 Paraplegia, unspecified; S32.029S Unspecified fracture of second lumbar vertebra, sequela; S22.089S Unspecified fracture of T11-T12 vertebra, sequela; V49.9XXS Car occupant (driver) (passenger) injured in unspecified traffic accident, sequela; Z86.14 Personal history of Methicillin resistant Staphylococcus aureus infection; F17.200 Nicotine dependence, unspecified, uncomplicated; Z88.0 Allergy status to penicillin
CPT/HCPCS: 93005 ×2; 36415; 87040; 87086; 82962; 85025; 85610; 87077; 87088; 80053; 81001; 87186; 82803; 83605; 71010; 93010 ×2; J3010; A9270; J3490; J0696; J7060; J7030; J3370; 96361; 96365; 96366; 96367; 96375; 99291; 99292

== ENCOUNTER 2016-10-24 22:42 | Emergency (ER) | payer MEDICARE ==
[2016-10-25 00:05] LABS: ABSOLUTE BASOPHILS # (AUTO) 0.1 10^3/uL (0.0-0.2); ABSOLUTE EOSINOPHILS # (AUTO) 0.1 10^3/uL (0.0-0.6); ABSOLUTE LYMPHOCYTES (AUTO) 1.5 10^3/uL (0.5-4.7); ABSOLUTE MONOCYTES (AUTO) 0.8 10^3/uL (0.1-1.4); BASOPHILS % (AUTO) 0.7 % (0-2); EOSINOPHILS % (AUTO) 0.5 % (0-6); HEMOGLOBIN 12.8 g/dL (13.5-17.0); HGB HCT DIFFERENCE 0.4; LYMPHOCYTES % (AUTO) 14.2 % (13-45); MEAN CORPUSCULAR HEMOGLOBIN 27.6 pg (27.0-33.4); MEAN CORPUSCULAR HGB CONC 33.7 g/dL (32.0-36.0); MEAN CORPUSCULAR VOLUME 82 fl (80-97); MONOCYTES % (AUTO) 7.5 % (3-13); RED BLOOD COUNT 4.64 10^6/uL (4.35-5.55); RED CELL DISTRIBUTION WIDTH 16.8 % (11.5-14.0); SEGMENTED NEUTROPHILS % (AUTO) 77.1 % (42-78); WHITE BLOOD COUNT 10.4 10^3/uL (4.0-10.5)
[2016-10-25 00:17] LABS: ALANINE AMINOTRANSFERASE 8 U/L (21-72); ALKALINE PHOSPHATASE 107 U/L (38-126); ANION GAP 11 (5-19); ASPARTATE AMINO TRANSFERASE 13 U/L (17-59); BILIRUBIN,DIRECT 0.4 mg/dL (0.0-0.4); BILIRUBIN,TOTAL 0.4 mg/dL (0.2-1.3); BLOOD UREA NITROGEN 5 mg/dL (7-20); CALCIUM 8.8 mg/dL (8.4-10.2); CARBON DIOXIDE 27 mmol/L (22-30); CHLORIDE 94 mmol/L (98-107); CREATININE RESULT 0.47 mg/dL (0.52-1.25); GLUCOSE 195 mg/dL (75-110); SODIUM 132.3 mmol/L (137-145); TOTAL PROTEIN 6.3 g/dL (6.3-8.2)
[2016-10-25] MEDS ORDERED: VANCOMYCIN HCL INJ 1000 MG VIAL IV ONE (00:30)
[2016-10-25] MEDS ORDERED: NORMAL SALINE 1000 ML 1,000 ML IV ONE (00:31)
[2016-10-25] MEDS ORDERED: CEFTRIAXONE 1 GM/D5W RTU 1 GM/50 ML RTUPB IV ONE (00:31)
[2016-10-25] MEDS ORDERED: MORPHINE SULFATE 10 MG/ML INJ IV ONE (00:32)
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
[2016-10-25 01:39] LABS: AMORPHOUS SEDIMENT,URINE 1+ /HPF; APPEARANCE,URINE TURBID; BILIRUBIN,URINE MODERATE (NEGATIVE); GLUCOSE, URINE NEGATIVE (NEGATIVE); KETONES,URINE 20 mg/dL (NEGATIVE); LEUKOCYTE ESTERASE,URINE MODERATE (NEGATIVE); NITRITE,URINE NEGATIVE (NEGATIVE); PROTEIN,URINE >=500 mg/dL (NEGATIVE); URINE SPECIFIC GRAVITY 1.014; UROBILINOGEN,URINE NEGATIVE mg/dL (<2.0)
[2016-10-25] MEDS ORDERED: NORMAL SALINE 1000 ML 1,000 ML IV PRN (02:58)
[2016-10-25 08:09] VITALS: BP 108/56
== END 2016-10-25 09:44 | disposition home or self-care (01) ==
LOC: ER 22:42
DX: L89.324 Pressure ulcer of left buttock, stage 4 (principal); G82.20 Paraplegia, unspecified; S22.089S Unspecified fracture of T11-T12 vertebra, sequela; S32.029S Unspecified fracture of second lumbar vertebra, sequela; V49.9XXS Car occupant (driver) (passenger) injured in unspecified traffic accident, sequela; R00.0 Tachycardia, unspecified; E87.1 Hypo-osmolality and hyponatremia; Z86.14 Personal history of Methicillin resistant Staphylococcus aureus infection; Z93.3 Colostomy status; Z88.0 Allergy status to penicillin
CPT/HCPCS: 99283; 96361; 96375; 96365; 36415; 87040; 87070; 87205; 85025; 87077; 80053; 81001; 87186; 83605; J2270; J7030; J3370; J0696

== ENCOUNTER 2016-12-29 10:45 | Inpatient (IN) | payer MEDICARE ==
[2016-12-29 11:23] LABS: ABSOLUTE BASOPHILS # (AUTO) 0.1 10^3/uL (0.0-0.2); ABSOLUTE LYMPHOCYTES (AUTO) 0.9 10^3/uL (0.5-4.7); ABSOLUTE MONOCYTES (AUTO) 0.5 10^3/uL (0.1-1.4); BASOPHILS % (AUTO) 0.8 % (0-2); EOSINOPHILS % (AUTO) 0.1 % (0-6); HEMATOCRIT 31.3 % (37.9-51.0); HEMOGLOBIN 10.2 g/dL (13.5-17.0); HGB HCT DIFFERENCE -0.7; LYMPHOCYTES % (AUTO) 10.8 % (13-45); MEAN CORPUSCULAR HGB CONC 32.7 g/dL (32.0-36.0); MEAN CORPUSCULAR VOLUME 77 fl (80-97); MONOCYTES % (AUTO) 5.9 % (3-13); RED BLOOD COUNT 4.08 10^6/uL (4.35-5.55); RED CELL DISTRIBUTION WIDTH 17.9 % (11.5-14.0); SEGMENTED NEUTROPHILS % (AUTO) 82.4 % (42-78); WHITE BLOOD COUNT 8.5 10^3/uL (4.0-10.5)
[2016-12-29] MEDS ORDERED: NORMAL SALINE 1000 ML 1,000 ML IV ONE ×2 (11:26→11:33)
[2016-12-29] MEDS ORDERED: CEFTRIAXONE 1 GM/D5W RTU 1 GM/50 ML RTUPB IV ONE (11:26)
[2016-12-29 11:43] LABS: VENOUS BLOOD BASE EXCESS 8.3 mmol/L; VENOUS BLOOD HCO3 33.6 mmol/L (20-32); VENOUS BLOOD PCO2 48.2 mmHg (35-63); VENOUS BLOOD PH 7.46 (7.30-7.42)
[2016-12-29 12:40] LABS: ALANINE AMINOTRANSFERASE 21 U/L (21-72); ALBUMIN 2.2 g/dL (3.5-5.0); ALKALINE PHOSPHATASE 168 U/L (38-126); ANION GAP 8 (5-19); ASPARTATE AMINO TRANSFERASE 11 U/L (17-59); BILIRUBIN,DIRECT 0.3 mg/dL (0.0-0.4); BILIRUBIN,TOTAL 0.4 mg/dL (0.2-1.3); BLOOD UREA NITROGEN 13 mg/dL (7-20); CALCIUM 7.9 mg/dL (8.4-10.2); CARBON DIOXIDE 30 mmol/L (22-30); CHLORIDE 98 mmol/L (98-107); CREATININE RESULT 0.49 mg/dL (0.52-1.25); GLUCOSE 124 mg/dL (75-110); POTASSIUM 4.1 mmol/L (3.6-5.0); TOTAL PROTEIN 5.1 g/dL (6.3-8.2)
[2016-12-29] MEDS ORDERED: LIDOCAINE 2% URO-JET 5 ML KIT MM ONE (13:32)
[2016-12-29] MEDS ORDERED: HYDROMORPHONE HCL INJ/PF 2 MG/ML AMPULE IV ONE (14:00)
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
[2016-12-29] MEDS: NORMAL SALINE 1000 ML 1,000 ML IV PRN ×2 (14:40→14:42)
[2016-12-29] MEDS ORDERED: MAGNESIUM HYDROXIDE SUSP 30 ML UDCUP PO PRN (15:18)
[2016-12-29] MEDS ORDERED: IPRATROPIUM/ALBUTEROL 0.5-2.5 MG/3 ML AMPUL NEB PRN (15:18)
[2016-12-29] MEDS ORDERED: (PENDING PHARMACY ID) (Oxymorphone Hcl [Opana] 10 MG) PO PRN (15:28)
[2016-12-29] MEDS ORDERED: 1/2 NORMAL SALINE 1,000 ML IV PRN (15:32)
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
[2016-12-29] MEDS ORDERED: GABAPENTIN 300 MG CAPSULE PO ONE (17:00)
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
[2016-12-29] MEDS ORDERED: INFLUENZA ADLT QUAD (36MOS+) 2017-18 VAC 0.5 ML SYR IM PRN (18:26)
[2016-12-29] MEDS: LACTOBACILLUS ACIDOPHILUS 250 MG TAB PO SCH (19:03)
[2016-12-29] MEDS: OXYCODONE HCL IR 5 MG TABLET PO PRN (19:04)
[2016-12-29] MEDS ORDERED: ENOXAPARIN SODIUM INJ 40 MG/0.4 ML DISP.SYRIN SUBCUT ONE (19:30)
[2016-12-29] MEDS ORDERED: COLLAGENASE CLOSTRIDIUM HIST. OINT 30 GM TOP ONE (19:45)
[2016-12-29] MEDS ORDERED: NORMAL SALINE 500 ML IV ONE (19:45)
[2016-12-29] MEDS: HYDROMORPHONE HCL INJ/PF 2 MG/ML AMPULE SUBCUT PRN (20:32)
[2016-12-29] MEDS: ACETAMINOPHEN 325 MG TABLET PO PRN (20:35)
[2016-12-29 20:51] LABS: AMORPHOUS SEDIMENT,URINE TRACE /HPF; APPEARANCE,URINE TURBID; BILIRUBIN,URINE NEGATIVE (NEGATIVE); GLUCOSE, URINE NEGATIVE (NEGATIVE); KETONES,URINE NEGATIVE (NEGATIVE); LEUKOCYTE ESTERASE,URINE MODERATE (NEGATIVE); NITRITE,URINE NEGATIVE (NEGATIVE); PROTEIN,URINE 100 mg/dL (NEGATIVE); URINE SPECIFIC GRAVITY 1.024
[2016-12-29] MEDS: CEFEPIME 2 GM/D5W RTU 2 GM/50 ML RTUPB IV SCH (21:28)
[2016-12-29] MEDS: FAMOTIDINE 20 MG TABLET PO SCH (22:00)
[2016-12-30] MEDS: HYDROMORPHONE HCL INJ/PF 2 MG/ML AMPULE SUBCUT PRN ×5 (03:51→23:10)
[2016-12-30 04:53] LABS: ABSOLUTE EOSINOPHILS # (AUTO) 0.1 10^3/uL (0.0-0.6); ABSOLUTE LYMPHOCYTES (AUTO) 1.2 10^3/uL (0.5-4.7); ABSOLUTE MONOCYTES (AUTO) 0.5 10^3/uL (0.1-1.4); ABSOLUTE NEUT (AUTO) 2.5 10^3/uL (1.7-8.2); EOSINOPHILS % (AUTO) 1.2 % (0-6); HEMATOCRIT 27.1 % (37.9-51.0); HEMOGLOBIN 8.4 g/dL (13.5-17.0); HGB HCT DIFFERENCE -1.9; LYMPHOCYTES % (AUTO) 28.2 % (13-45); MEAN CORPUSCULAR HEMOGLOBIN 24.2 pg (27.0-33.4); MEAN CORPUSCULAR VOLUME 78 fl (80-97); RED BLOOD COUNT 3.48 10^6/uL (4.35-5.55); RED CELL DISTRIBUTION WIDTH 17.4 % (11.5-14.0); SEGMENTED NEUTROPHILS % (AUTO) 58.6 % (42-78); WHITE BLOOD COUNT 4.3 10^3/uL (4.0-10.5)
[2016-12-30 05:10] LABS: ANION GAP 5 (5-19); BLOOD UREA NITROGEN 11 mg/dL (7-20); CALCIUM 7.9 mg/dL (8.4-10.2); CARBON DIOXIDE 26 mmol/L (22-30); CHLORIDE 108 mmol/L (98-107); CREATININE RESULT 0.35 mg/dL (0.52-1.25); GLUCOSE 113 mg/dL (75-110); MAGNESIUM 2.1 mg/dL (1.6-2.3); PHOSPHORUS 3.1 mg/dL (2.5-4.5); POTASSIUM 3.5 mmol/L (3.6-5.0); SODIUM 139.2 mmol/L (137-145)
[2016-12-30] MEDS: GABAPENTIN 300 MG CAPSULE PO SCH ×5 (08:19→23:10)
[2016-12-30] MEDS: FAMOTIDINE 20 MG TABLET PO SCH ×2 (09:31→20:28)
[2016-12-30] MEDS: LACTOBACILLUS ACIDOPHILUS 250 MG TAB PO SCH ×2 (09:31→17:10)
[2016-12-30] MEDS: CEFEPIME 2 GM/D5W RTU 2 GM/50 ML RTUPB IV SCH ×2 (09:31→20:15)
[2016-12-30] MEDS: ENOXAPARIN SODIUM INJ 40 MG/0.4 ML DISP.SYRIN SUBCUT SCH (09:32)
[2016-12-30] MEDS: COLLAGENASE CLOSTRIDIUM HIST. OINT 30 GM TOP SCH (09:32)
--- NOTE | 2016-12-30 09:36 | EKG REPORT ---
SEVERITY:- OTHERWISE NORMAL ECG - SINUS TACHYCARDIA RIGHT AXIS DEVIATION : Confirmed by: Tono Lino 30-Dec-2016 09:35:23
[2016-12-30] MEDS: OXYCODONE HCL IR 5 MG TABLET PO PRN ×2 (11:49→20:29)
--- NOTE | 2016-12-30 12:11 | PDOC PROGRESS REPORT ---
Subjective Progress Note for:: 12/30/16 Subjective:: Overall feeling "much better" today. States that his energy level is markedly improved compared to yesterday. Continues to endorse lower back pain which is chronic. Denies fevers, chills, CP, SOB, abdominal pain, NV. Tolerating PO diet. Physical Exam Vital Signs: Temp Pulse Resp BP Pulse Ox 98.2 F 85 18 93/52 L 98 12/30/16 07:07 12/30/16 09:57 12/30/16 09:57 12/30/16 07:07 12/30/16 09:57 Intake & Output 12/29/16 12/30/16 12/31/16 06:59 06:59 06:59 Intake Total 1800 Output Total 1250 Balance 550 Weight 50.077 kg General appearance: PRESENT: no acute distress, thin Head exam: PRESENT: atraumatic, normocephalic Eye exam: PRESENT: conjunctiva pink, EOMI, PERRLA. ABSENT: scleral icterus Mouth exam: PRESENT: moist, tongue midline Neck exam: ABSENT: carotid bruit, JVD, lymphadenopathy, thyromegaly Respiratory exam: PRESENT: clear to auscultation maury. ABSENT: rales, rhonchi, wheezes Cardiovascular exam: PRESENT: RRR. ABSENT: diastolic murmur, rubs, systolic murmur Vascular exam: PRESENT: normal capillary refill GI/Abdominal exam: PRESENT: normal bowel sounds, soft. ABSENT: distended, guarding, mass, organolmegaly, rebound, tenderness Rectal exam: PRESENT: deferred Extremities exam: ABSENT: calf tenderness, clubbing, pedal edema Neurological exam: PRESENT: alert, awake, oriented to person, oriented to place , oriented to time, oriented to situation, CN II-XII grossly intact. ABSENT: motor sensory deficit Psychiatric exam: PRESENT: appropriate affect, normal mood. ABSENT: homicidal ideation, suicidal ideation Skin exam: PRESENT: dry, intact, warm. ABSENT: cyanosis, rash Additional comments: Sacral wound in dressing, did not remove today. No evidence of active drainage. Results Laboratory Results: 12/30/16 04:27 12/30/16 04:27 12/29/16 12/30/16 12/30/16 19:53 04:27 04:27 WBC 4.3 RBC 3.48 L Hgb 8.4 L Hct 27.1 L MCV 78 L MCH 24.2 L MCHC 31.0 L RDW 17.4 H Plt Count 220 Seg Neutrophils % 58.6 Lymphocytes % 28.2 Monocytes % 11.0 Eosinophils % 1.2 Basophils % 1.0 Absolute Neutrophils 2.5 Absolute Lymphocytes 1.2 Absolute Monocytes 0.5 Absolute Eosinophils 0.1 Absolute Basophils 0.0 Sodium 139.2 Potassium 3.5 L Chloride 108 H Carbon Dioxide 26 Anion Gap 5 BUN 11 Creatinine 0.35 L Est GFR ( Amer) > 60 Est GFR (Non-Af Amer) > 60 Glucose 113 H Calcium 7.9 L Phosphorus 3.1 Magnesium 2.1 Urine Color KAI Urine Appearance TURBID Urine pH 6.0 Ur Specific [place] 1.024 Urine Protein 100 H Urine Glucose (UA) NEGATIVE Urine Ketones NEGATIVE Urine Blood MODERATE H Urine Nitrite NEGATIVE Ur Leukocyte Esterase MODERATE H Urine WBC (Auto) >182 Urine RBC (Auto) >182 Impressions: Micro: Blood cultures NGTD, Urine cultures NGTD Assessment & Plan - Diagnosis (1) Sepsis Qualifiers: Sepsis type: sepsis due to unspecified organism Qualified Code(s): A41.9 - Sepsis, unspecified organism Is this a current diagnosis for this admission?: Yes Plan: Continue IV antibiotics for now. Blood and urine cultures noted to be negative. Has been afebrile and hemodynamically stable. Sacral decubitis ulcer examined by general surgery at admission and not felt to be actively infected. Continue current treatment plan for now. If stable tomorrow, consider discharge. (2) Sacral decubitus ulcer, stage IV Is this a current diagnosis for this admission?: Yes Plan: Seen and evaluated by general surgery. No plan for intervention at this point. Continue IV antibiotics for now and follow results of culture. Encouraged to stop smoking and improve nutrition which will help with wound healing. (3) Tobacco abuse Is this a current diagnosis for this admission?: Yes Plan: Continues to smoke. Smoking cessation counseling provided. Patient not prepared to stop smoking at this point. (4) Opioid dependence Is this a current diagnosis for this admission?: Yes Plan: Continue current pain regimen (5) Severe protein-calorie malnutrition Is this a current diagnosis for this admission?: Yes Plan: Albumin noted to be 2.2. Would benefit from nutrition counseling. - Time Time Spent with patient: 15-24 minutes Smoking Cessation Education: 3 to 10 minutes Medications reviewed and adjusted accordingly: Yes Anticipated discharge: Home with Homehealth Within: within 48 hours - Inpatient Certification Medical Necessity: Need for IV Antibiotics - Continue inpatient care for now.
[2016-12-30] MEDS: ACETAMINOPHEN 325 MG TABLET PO PRN (16:15)
[2016-12-30] MEDS: PROMETHAZINE HCL 25 MG TABLET PO PRN (20:28)
[2016-12-31] MEDS: OXYCODONE HCL IR 5 MG TABLET PO PRN ×2 (03:50→15:25)
[2016-12-31 05:28] LABS: ABSOLUTE EOSINOPHILS # (AUTO) 0.1 10^3/uL (0.0-0.6); ABSOLUTE LYMPHOCYTES (AUTO) 1.3 10^3/uL (0.5-4.7); ABSOLUTE MONOCYTES (AUTO) 0.5 10^3/uL (0.1-1.4); ABSOLUTE NEUT (AUTO) 4.8 10^3/uL (1.7-8.2); BASOPHILS % (AUTO) 0.6 % (0-2); EOSINOPHILS % (AUTO) 1.3 % (0-6); HEMATOCRIT 26.2 % (37.9-51.0); HEMOGLOBIN 8.5 g/dL (13.5-17.0); HGB HCT DIFFERENCE -0.7; LYMPHOCYTES % (AUTO) 19.8 % (13-45); MEAN CORPUSCULAR HEMOGLOBIN 24.8 pg (27.0-33.4); MEAN CORPUSCULAR HGB CONC 32.4 g/dL (32.0-36.0); MEAN CORPUSCULAR VOLUME 77 fl (80-97); MONOCYTES % (AUTO) 6.9 % (3-13); RED BLOOD COUNT 3.42 10^6/uL (4.35-5.55); RED CELL DISTRIBUTION WIDTH 17.5 % (11.5-14.0); SEGMENTED NEUTROPHILS % (AUTO) 71.4 % (42-78); WHITE BLOOD COUNT 6.7 10^3/uL (4.0-10.5)
[2016-12-31 05:50] LABS: ANION GAP 9 (5-19); BLOOD UREA NITROGEN 18 mg/dL (7-20); CALCIUM 7.7 mg/dL (8.4-10.2); CARBON DIOXIDE 22 mmol/L (22-30); CHLORIDE 101 mmol/L (98-107); CREATININE RESULT 0.81 mg/dL (0.52-1.25); GLUCOSE 86 mg/dL (75-110); MAGNESIUM 1.8 mg/dL (1.6-2.3); POTASSIUM 4.1 mmol/L (3.6-5.0); SODIUM 131.6 mmol/L (137-145)
[2016-12-31] MEDS: GABAPENTIN 300 MG CAPSULE PO SCH ×3 (06:54→20:09)
--- NOTE | 2016-12-31 08:33 | PDOC PROGRESS REPORT ---
Subjective Progress Note for:: 12/31/16 Subjective:: Pt states that he is doing ok. Pt states that he is interested in going to a [facility] for care. Nursing states that pt is doing ok. Physical Exam Vital Signs: Temp Pulse Resp BP Pulse Ox 99.8 F 120 H 24 H 121/74 98 12/31/16 03:39 12/31/16 07:00 12/31/16 03:39 12/31/16 03:39 12/31/16 03:39 Intake & Output 12/30/16 12/31/16 01/01/17 06:59 06:59 06:59 Intake Total 1800 1624 Output Total 1250 2200 Balance 550 -576 Weight 50.077 kg 52.5 kg General appearance: PRESENT: no acute distress, cooperative, thin Head exam: PRESENT: atraumatic, normocephalic Eye exam: PRESENT: conjunctival injection, conjunctiva pink, EOMI, PERRLA Ear exam: PRESENT: normal external ear exam Mouth exam: PRESENT: moist, tongue midline Neck exam: ABSENT: carotid bruit, JVD, lymphadenopathy, thyromegaly Respiratory exam: PRESENT: clear to auscultation maury. ABSENT: rales, rhonchi, wheezes Cardiovascular exam: PRESENT: RRR. ABSENT: diastolic murmur, rubs, systolic murmur Pulses: PRESENT: normal dorsalis pedis pul GI/Abdominal exam: PRESENT: soft, other - +colostomy bag Rectal exam: PRESENT: deferred Extremities exam: PRESENT: full ROM. ABSENT: calf tenderness, clubbing, pedal edema Musculoskeletal exam: PRESENT: other - + muscular wasting Neurological exam: PRESENT: alert, altered, awake, oriented to person, oriented to place, oriented to time Psychiatric exam: PRESENT: appropriate affect, normal mood. ABSENT: homicidal ideation, suicidal ideation Skin exam: PRESENT: other - +sacral wound with dressing in place, + bilateral heel pressure wounds with dressing in place. Results Laboratory Results: 12/31/16 04:27 12/31/16 04:27 12/31/16 12/31/16 04:27 04:27 WBC 6.7 RBC 3.42 L Hgb 8.5 L Hct 26.2 L MCV 77 L MCH 24.8 L MCHC 32.4 RDW 17.5 H Plt Count 285 Seg Neutrophils % 71.4 Lymphocytes % 19.8 Monocytes % 6.9 Eosinophils % 1.3 Basophils % 0.6 Absolute Neutrophils 4.8 Absolute Lymphocytes 1.3 Absolute Monocytes 0.5 Absolute Eosinophils 0.1 Absolute Basophils 0.0 Sodium 131.6 L Potassium 4.1 Chloride 101 Carbon Dioxide 22 Anion Gap 9 BUN 18 Creatinine 0.81 Est GFR ( Amer) > 60 Est GFR (Non-Af Amer) > 60 Glucose 86 Calcium 7.7 L Magnesium 1.8 Assessment & Plan - Diagnosis (1) Sepsis Qualifiers: Sepsis type: sepsis due to unspecified organism Qualified Code(s): A41.9 - Sepsis, unspecified organism Is this a current diagnosis for this admission?: Yes Plan: Source of Sepsis Unknown: Will continue current treatment. Blood and urine cultures no growth. (2) Sacral decubitus ulcer, stage IV Is this a current diagnosis for this admission?: Yes Plan: Continue wound care. Pt states that he is interested in going to [facility] for continuation of care. (3) Opioid dependence Is this a current diagnosis for this admission?: Yes Plan: Will continue to monitor pt closely. Arnel. (4) Urinary tract infection Qualifiers: Urinary tract infection type: catheter-associated UTI Indwelling urinary catheter type: indwelling urethral catheter Encounter type: initial encounter Qualified Code(s): T83.511A - Infection and inflammatory reaction due to indwelling urethral catheter, initial encounter; N39.0 - Urinary tract infection , site not specified; N39.0 - Urinary tract infection, site not specified Is this a current diagnosis for this admission?: Yes Plan: Urine culture with no growth. (5) Paraplegia following spinal cord injury Is this a current diagnosis for this admission?: Yes Plan: Supportive care. (6) Encephalopathy Is this a current diagnosis for this admission?: Yes Plan: Resolved. (7) DVT prophylaxis Is this a current diagnosis for this admission?: Yes Plan: Lovenox. - Time Time Spent with patient: 15-24 minutes - Will have case managment look for placement.
[2016-12-31] MEDS: HYDROMORPHONE HCL INJ/PF 2 MG/ML AMPULE SUBCUT PRN ×4 (08:57→22:22)
[2016-12-31] MEDS: FAMOTIDINE 20 MG TABLET PO SCH ×2 (09:08→22:14)
[2016-12-31] MEDS: LACTOBACILLUS ACIDOPHILUS 250 MG TAB PO SCH ×2 (09:08→20:09)
[2016-12-31] MEDS: CEFEPIME 2 GM/D5W RTU 2 GM/50 ML RTUPB IV SCH ×2 (09:09→22:13)
[2016-12-31] MEDS: COLLAGENASE CLOSTRIDIUM HIST. OINT 30 GM TOP SCH (09:09)
[2016-12-31] MEDS: NORMAL SALINE 1000 ML 1,000 ML IV PRN (09:10)
[2016-12-31] MEDS: ENOXAPARIN SODIUM INJ 40 MG/0.4 ML DISP.SYRIN SUBCUT SCH (09:31)
[2016-12-31] MEDS: PROMETHAZINE HCL 25 MG TABLET PO PRN (10:39)
[2016-12-31] MEDS: ACETAMINOPHEN 325 MG TABLET PO PRN (10:39)
[2016-12-31] MEDS: PROMETHAZINE HCL INJ 25 MG/1 ML VIAL IV PRN (17:59)
[2017-01-01] MEDS: PROMETHAZINE HCL 25 MG TABLET PO PRN (02:16)
[2017-01-01] MEDS: GABAPENTIN 300 MG CAPSULE PO SCH ×5 (02:16→23:25)
[2017-01-01] MEDS: OXYCODONE HCL IR 5 MG TABLET PO PRN ×3 (02:17→20:55)
[2017-01-01] MEDS: ZOLPIDEM TARTRATE 5 MG TABLET PO PRN (03:32)
[2017-01-01 04:56] LABS: ABSOLUTE EOSINOPHILS # (AUTO) 0.1 10^3/uL (0.0-0.6); ABSOLUTE LYMPHOCYTES (AUTO) 1.3 10^3/uL (0.5-4.7); ABSOLUTE MONOCYTES (AUTO) 0.4 10^3/uL (0.1-1.4); ABSOLUTE NEUT (AUTO) 3.9 10^3/uL (1.7-8.2); BASOPHILS % (AUTO) 0.1 % (0-2); EOSINOPHILS % (AUTO) 1.3 % (0-6); HEMATOCRIT 24.7 % (37.9-51.0); HGB HCT DIFFERENCE -0.7; LYMPHOCYTES % (AUTO) 22.7 % (13-45); MEAN CORPUSCULAR HEMOGLOBIN 24.4 pg (27.0-33.4); MEAN CORPUSCULAR HGB CONC 32.2 g/dL (32.0-36.0); MEAN CORPUSCULAR VOLUME 76 fl (80-97); MONOCYTES % (AUTO) 7.4 % (3-13); RED BLOOD COUNT 3.26 10^6/uL (4.35-5.55); RED CELL DISTRIBUTION WIDTH 17.7 % (11.5-14.0); SEGMENTED NEUTROPHILS % (AUTO) 68.5 % (42-78); WHITE BLOOD COUNT 5.6 10^3/uL (4.0-10.5)
[2017-01-01 05:13] LABS: ALANINE AMINOTRANSFERASE 22 U/L (21-72); ALBUMIN 1.9 g/dL (3.5-5.0); ALKALINE PHOSPHATASE 93 U/L (38-126); ANION GAP 8 (5-19); ASPARTATE AMINO TRANSFERASE 7 U/L (17-59); BILIRUBIN,DIRECT 0.2 mg/dL (0.0-0.4); BILIRUBIN,TOTAL 0.2 mg/dL (0.2-1.3); BLOOD UREA NITROGEN 13 mg/dL (7-20); CALCIUM 7.8 mg/dL (8.4-10.2); CARBON DIOXIDE 24 mmol/L (22-30); CHLORIDE 106 mmol/L (98-107); CREATININE RESULT 0.47 mg/dL (0.52-1.25); GLUCOSE 159 mg/dL (75-110); MAGNESIUM 1.9 mg/dL (1.6-2.3); POTASSIUM 3.5 mmol/L (3.6-5.0); SODIUM 138.4 mmol/L (137-145); TOTAL PROTEIN 4.7 g/dL (6.3-8.2)
--- NOTE | 2017-01-01 08:09 | PDOC PROGRESS REPORT ---
Subjective Progress Note for:: 01/01/17 Subjective:: No new issues. Physical Exam Vital Signs: Temp Pulse Resp BP Pulse Ox 99.2 F 112 H 18 113/56 L 100 01/01/17 00:38 01/01/17 00:38 01/01/17 00:38 01/01/17 00:38 01/01/17 00:38 Intake & Output 12/31/16 01/01/17 01/02/17 06:59 06:59 06:59 Intake Total 1624 2435 Output Total 2200 3400 Balance -576 -965 Weight 52.5 kg 53.2 kg General appearance: PRESENT: no acute distress, thin Head exam: PRESENT: atraumatic, normocephalic Eye exam: PRESENT: conjunctiva pink, EOMI, PERRLA. ABSENT: scleral icterus Ear exam: PRESENT: normal external ear exam Mouth exam: PRESENT: moist, tongue midline Neck exam: ABSENT: carotid bruit, JVD, lymphadenopathy, thyromegaly Respiratory exam: PRESENT: clear to auscultation maury. ABSENT: rales, rhonchi, wheezes Cardiovascular exam: PRESENT: RRR. ABSENT: diastolic murmur, rubs, systolic murmur Pulses: PRESENT: normal dorsalis pedis pul GI/Abdominal exam: PRESENT: normal bowel sounds, soft. ABSENT: distended, guarding, mass, organolmegaly, rebound, tenderness Rectal exam: PRESENT: deferred Extremities exam: PRESENT: other - + muscle wasting. ABSENT: calf tenderness, clubbing Musculoskeletal exam: PRESENT: other - + muscle wasting. Neurological exam: PRESENT: alert, altered, awake, oriented to person Skin exam: PRESENT: other - sacral ulcer with dressing in place Results Laboratory Results: 01/01/17 04:17 01/01/17 04:17 01/01/17 01/01/17 04:17 04:17 WBC 5.6 RBC 3.26 L Hgb 8.0 L Hct 24.7 L MCV 76 L MCH 24.4 L MCHC 32.2 RDW 17.7 H Plt Count 285 Seg Neutrophils % 68.5 Lymphocytes % 22.7 Monocytes % 7.4 Eosinophils % 1.3 Basophils % 0.1 Absolute Neutrophils 3.9 Absolute Lymphocytes 1.3 Absolute Monocytes 0.4 Absolute Eosinophils 0.1 Absolute Basophils 0.0 Sodium 138.4 Potassium 3.5 L Chloride 106 Carbon Dioxide 24 Anion Gap 8 BUN 13 Creatinine 0.47 L Est GFR ( Amer) > 60 Est GFR (Non-Af Amer) > 60 Glucose 159 H Calcium 7.8 L Magnesium 1.9 Total Bilirubin 0.2 AST 7 L ALT 22 Alkaline Phosphatase 93 Total Protein 4.7 L Albumin 1.9 L 12/30/16 05:25 Nasophary ([facility] Only) MRSA Surveillance Culture - Final NO MRSA RECOVERED 12/29/16 19:53 Corral Catheter Urine Culture - Final NO GROWTH 2 DAYS Assessment & Plan - Diagnosis (1) Sepsis Qualifiers: Sepsis type: sepsis due to unspecified organism Qualified Code(s): A41.9 - Sepsis, unspecified organism Is this a current diagnosis for this admission?: Yes Plan: Source of Sepsis Unknown: Will continue current treatment. Blood and urine cultures no growth. (2) Sacral decubitus ulcer, stage IV Is this a current diagnosis for this admission?: Yes Plan: Continue wound care. Pt states that he is interested in going to [facility] for continuation of care. (3) Severe protein-calorie malnutrition Is this a current diagnosis for this admission?: Yes Plan: Will place on Megace. Will encourage good PO intake. (4) Opioid dependence Is this a current diagnosis for this admission?: Yes Plan: Will continue to monitor pt closely. Arnel. (5) Anemia Qualifiers: Anemia type: unspecified type Qualified Code(s): D64.9 - Anemia, unspecified Is this a current diagnosis for this admission?: Yes Plan: Most likely Iron Deficiency: Will check anemia workup. (6) Urinary tract infection Qualifiers: Urinary tract infection type: catheter-associated UTI Indwelling urinary catheter type: indwelling urethral catheter Encounter type: initial encounter Qualified Code(s): T83.511A - Infection and inflammatory reaction due to indwelling urethral catheter, initial encounter; N39.0 - Urinary tract infection , site not specified; N39.0 - Urinary tract infection, site not specified Is this a current diagnosis for this admission?: Yes Plan: Urine culture with no growth. (8) Diarrhea Is this a current diagnosis for this admission?: Yes Plan: C.diff ordered. (9) Paraplegia following spinal cord injury Is this a current diagnosis for this admission?: Yes Plan: Supportive care. (10) Encephalopathy Is this a current diagnosis for this admission?: Yes Plan: Resolved. (11) DVT prophylaxis Is this a current diagnosis for this admission?: Yes Plan: Lovenox. - Time Time Spent with patient: 15-24 minutes Anticipated discharge: SNF - Spoke to pt's daughter Sarahy Ballesteros about pt. She states that she is trying to get guardianship over her father. She states that her brother is a drug addict and not able to care for pt well. She and the patient is in agreement with placement.
[2017-01-01] MEDS ORDERED: POTASSIUM CHLORIDE 20 MEQ/15 ML UDCUP PO ONE (08:15)
[2017-01-01] MEDS ORDERED: MAGNESIUM HYDROXIDE SUSP 30 ML UDCUP PO PRN (09:00)
[2017-01-01] MEDS ORDERED: POTASSIUM CHLORIDE 10 MEQ TABLET.SA PO ONE (09:00)
[2017-01-01] MEDS ORDERED: MEGESTROL ACETATE 20 MG TABLET PO ONE (09:00)
[2017-01-01] MEDS: HYDROMORPHONE HCL 2 MG TABLET PO PRN ×3 (09:04→23:18)
[2017-01-01] MEDS: LACTOBACILLUS ACIDOPHILUS 250 MG TAB PO SCH ×2 (09:05→17:37)
[2017-01-01] MEDS: FAMOTIDINE 20 MG TABLET PO SCH ×2 (09:05→23:18)
[2017-01-01] MEDS: CEFEPIME 2 GM/D5W RTU 2 GM/50 ML RTUPB IV SCH ×2 (09:06→23:19)
[2017-01-01] MEDS: ENOXAPARIN SODIUM INJ 40 MG/0.4 ML DISP.SYRIN SUBCUT SCH (09:08)
[2017-01-01] MEDS: COLLAGENASE CLOSTRIDIUM HIST. OINT 30 GM TOP SCH (09:11)
[2017-01-01] MEDS: NORMAL SALINE 1000 ML 1,000 ML IV PRN (12:25)
[2017-01-02] MEDS: GABAPENTIN 300 MG CAPSULE PO SCH ×4 (06:01→23:26)
[2017-01-02] MEDS: OXYCODONE HCL IR 5 MG TABLET PO PRN ×3 (06:02→23:25)
[2017-01-02] MEDS ORDERED: POTASSIUM CHLORIDE 10 MEQ TABLET.SA PO ONE ×2 (08:01→11:23)
[2017-01-02] MEDS: MEGESTROL ACETATE 20 MG TABLET PO SCH (08:27)
[2017-01-02] MEDS: HYDROMORPHONE HCL 2 MG TABLET PO PRN ×2 (11:28→18:08)
[2017-01-02] MEDS: FAMOTIDINE 20 MG TABLET PO SCH ×2 (11:29→21:49)
[2017-01-02] MEDS: LACTOBACILLUS ACIDOPHILUS 250 MG TAB PO SCH ×2 (11:30→18:00)
[2017-01-02] MEDS: ENOXAPARIN SODIUM INJ 40 MG/0.4 ML DISP.SYRIN SUBCUT SCH (11:30)
[2017-01-02] MEDS: CEFEPIME 2 GM/D5W RTU 2 GM/50 ML RTUPB IV SCH ×2 (11:31→21:49)
[2017-01-02] MEDS: COLLAGENASE CLOSTRIDIUM HIST. OINT 30 GM TOP SCH (11:37)
--- NOTE | 2017-01-02 13:05 | PDOC PROGRESS REPORT ---
Subjective Progress Note for:: 01/02/17 Subjective:: No new issues. Pt states that he is still waiting to go to [facility]. Physical Exam Vital Signs: Temp Pulse Resp BP Pulse Ox 98.8 F 87 18 77/25 L 100 01/02/17 07:23 01/02/17 07:23 01/02/17 07:23 01/02/17 07:23 01/02/17 07:23 Intake & Output 01/01/17 01/02/17 01/03/17 06:59 06:59 06:59 Intake Total 3615 3822 Output Total 3400 2900 Balance 215 922 Weight 53.2 kg 51.3 kg General appearance: PRESENT: no acute distress, thin Head exam: PRESENT: atraumatic, normocephalic Eye exam: PRESENT: conjunctiva pink, EOMI, PERRLA. ABSENT: scleral icterus Ear exam: PRESENT: normal external ear exam Mouth exam: PRESENT: moist, tongue midline Neck exam: ABSENT: carotid bruit, JVD, lymphadenopathy, thyromegaly Respiratory exam: PRESENT: clear to auscultation maury. ABSENT: rales, rhonchi, wheezes Cardiovascular exam: PRESENT: RRR. ABSENT: diastolic murmur, rubs, systolic murmur Pulses: PRESENT: normal dorsalis pedis pul Vascular exam: PRESENT: normal capillary refill GI/Abdominal exam: PRESENT: normal bowel sounds, soft. ABSENT: distended, guarding, mass, organolmegaly, rebound, tenderness Rectal exam: PRESENT: deferred Extremities exam: PRESENT: other - + muscle wasting bilateral lower ext Neurological exam: PRESENT: alert, altered, awake, oriented to person, oriented to place, oriented to time, oriented to situation Psychiatric exam: PRESENT: appropriate affect, normal mood. ABSENT: homicidal ideation, suicidal ideation Skin exam: PRESENT: other - sacral ulcer with dressing in place Results Laboratory Results: 01/01/17 04:17 01/01/17 04:17 12/29/16 23:15 Decubitis Ulcer - Sacral Gram Stain - Final 12/29/16 23:15 Decubitis Ulcer - Sacral Wound Culture - Final Peptostreptococcus Species Skin Opal Assessment & Plan - Diagnosis (1) Sepsis Qualifiers: Sepsis type: sepsis due to unspecified organism Qualified Code(s): A41.9 - Sepsis, unspecified organism Is this a current diagnosis for this admission?: Yes Plan: Source of Sepsis Most Likely Sacral Wound: Will continue current treatment. Blood and urine cultures no growth. (2) Sacral decubitus ulcer, stage IV Is this a current diagnosis for this admission?: Yes Plan: Continue wound care. Pt states that he is interested in going to [facility] for continuation of care. Pt currently on Cefepime. (3) Severe protein-calorie malnutrition Is this a current diagnosis for this admission?: Yes Plan: Megace. Will encourage good PO intake. (4) C. difficile diarrhea Is this a current diagnosis for this admission?: Yes Plan: Will place on Vancomycin PO 125mg Q6. (5) Opioid dependence Is this a current diagnosis for this admission?: Yes Plan: Will continue to monitor pt closely. (6) Anemia Qualifiers: Anemia type: unspecified type Qualified Code(s): D64.9 - Anemia, unspecified Is this a current diagnosis for this admission?: Yes Plan: Most likely Iron Deficiency: Will check anemia workup. (7) Urinary tract infection Qualifiers: Urinary tract infection type: catheter-associated UTI Indwelling urinary catheter type: indwelling urethral catheter Encounter type: initial encounter Qualified Code(s): T83.511A - Infection and inflammatory reaction due to indwelling urethral catheter, initial encounter; N39.0 - Urinary tract infection , site not specified; N39.0 - Urinary tract infection, site not specified Is this a current diagnosis for this admission?: Yes Plan: Urine culture with no growth. (8) Hypokalemia Is this a current diagnosis for this admission?: Yes Plan: Will give potassium replacement. (9) Depression Is this a current diagnosis for this admission?: Yes Plan: Will place pt on Zoloft low dose. (10) Diarrhea Is this a current diagnosis for this admission?: Yes Plan: Secondary to C. Diff: Pt on PO Vancomycin. (11) Paraplegia following spinal cord injury Is this a current diagnosis for this admission?: Yes Plan: Supportive care. (12) Encephalopathy Is this a current diagnosis for this admission?: Yes Plan: Resolved. (13) DVT prophylaxis Is this a current diagnosis for this admission?: Yes Plan: Lovenox. - Time Time Spent with patient: 15-24 minutes
[2017-01-02] MEDS: VANCOMYCIN HCL INJ 500 MG VIAL PO SCH ×2 (17:59→23:27)
[2017-01-02] MEDS: SERTRALINE HCL 50 MG TABLET PO SCH (21:49)
[2017-01-02] MEDS: ZOLPIDEM TARTRATE 5 MG TABLET PO PRN (22:28)
[2017-01-03] MEDS: HYDROMORPHONE HCL 2 MG TABLET PO PRN ×4 (03:11→22:45)
[2017-01-03] MEDS: VANCOMYCIN HCL INJ 500 MG VIAL PO SCH ×3 (05:17→18:10)
[2017-01-03] MEDS: GABAPENTIN 300 MG CAPSULE PO SCH ×3 (05:17→18:06)
[2017-01-03 06:35] LABS: ABSOLUTE BASOPHILS # (AUTO) 0.1 10^3/uL (0.0-0.2); ABSOLUTE EOSINOPHILS # (AUTO) 0.2 10^3/uL (0.0-0.6); ABSOLUTE LYMPHOCYTES (AUTO) 1.8 10^3/uL (0.5-4.7); ABSOLUTE MONOCYTES (AUTO) 0.4 10^3/uL (0.1-1.4); ABSOLUTE NEUT (AUTO) 2.9 10^3/uL (1.7-8.2); BASOPHILS % (AUTO) 1.4 % (0-2); EOSINOPHILS % (AUTO) 2.8 % (0-6); HEMATOCRIT 22.5 % (37.9-51.0); HGB HCT DIFFERENCE -0.6; LYMPHOCYTES % (AUTO) 34.2 % (13-45); MEAN CORPUSCULAR HEMOGLOBIN 24.7 pg (27.0-33.4); MEAN CORPUSCULAR HGB CONC 32.3 g/dL (32.0-36.0); MEAN CORPUSCULAR VOLUME 76 fl (80-97); MONOCYTES % (AUTO) 8.2 % (3-13); RED BLOOD COUNT 2.95 10^6/uL (4.35-5.55); RED CELL DISTRIBUTION WIDTH 17.6 % (11.5-14.0); SEGMENTED NEUTROPHILS % (AUTO) 53.4 % (42-78); WHITE BLOOD COUNT 5.4 10^3/uL (4.0-10.5)
[2017-01-03 06:43] LABS: HEMOGLOBIN 7.3 g/dL (13.5-17.0)
[2017-01-03 07:02] LABS: ALANINE AMINOTRANSFERASE 33 U/L (21-72); ALBUMIN 2.1 g/dL (3.5-5.0); ALKALINE PHOSPHATASE 134 U/L (38-126); ANION GAP 7 (5-19); ASPARTATE AMINO TRANSFERASE 23 U/L (17-59); BILIRUBIN,DIRECT 0.2 mg/dL (0.0-0.4); BILIRUBIN,TOTAL 0.2 mg/dL (0.2-1.3); BLOOD UREA NITROGEN 10 mg/dL (7-20); CALCIUM 7.8 mg/dL (8.4-10.2); CARBON DIOXIDE 25 mmol/L (22-30); CHLORIDE 102 mmol/L (98-107); CREATININE RESULT 0.32 mg/dL (0.52-1.25); GLUCOSE 85 mg/dL (75-110); POTASSIUM 4.6 mmol/L (3.6-5.0); SODIUM 134.4 mmol/L (137-145); TOTAL PROTEIN 4.8 g/dL (6.3-8.2)
[2017-01-03] MEDS: OXYCODONE HCL IR 5 MG TABLET PO PRN ×2 (07:27→19:57)
[2017-01-03 08:08] LABS: FOLATE 5.17 ng/mL (>2.76)
[2017-01-03] MEDS: MEGESTROL ACETATE 20 MG TABLET PO SCH (08:10)
[2017-01-03] MEDS: LACTOBACILLUS ACIDOPHILUS 250 MG TAB PO SCH ×2 (09:31→18:07)
[2017-01-03] MEDS: FAMOTIDINE 20 MG TABLET PO SCH ×2 (09:33→21:21)
[2017-01-03] MEDS: CEFEPIME 2 GM/D5W RTU 2 GM/50 ML RTUPB IV SCH (09:37)
[2017-01-03] MEDS: COLLAGENASE CLOSTRIDIUM HIST. OINT 30 GM TOP SCH (09:41)
[2017-01-03] MEDS: ENOXAPARIN SODIUM INJ 40 MG/0.4 ML DISP.SYRIN SUBCUT SCH (09:42)
[2017-01-03] MEDS ORDERED: NORMAL SALINE 250 ML IV PRN ×2 (14:23)
--- NOTE | 2017-01-03 14:35 | PDOC PROGRESS REPORT ---
Subjective Progress Note for:: 01/03/17 Subjective:: Pt was seen earlier this morning. Pt states that he is having pain. Pt states that he would like to be moved. Nursing reported that pt Hbg was 7. 3. Physical Exam Vital Signs: Temp Pulse Resp BP Pulse Ox 98.5 F 92 18 94/42 L 100 01/03/17 12:14 01/03/17 12:14 01/03/17 12:14 01/03/17 12:14 01/03/17 12:14 Intake & Output 01/02/17 01/03/17 01/04/17 06:59 06:59 06:59 Intake Total 3822 4161 Output Total 2900 3900 Balance 922 261 Weight 51.3 kg 59 kg General appearance: PRESENT: no acute distress, thin Head exam: PRESENT: atraumatic, normocephalic Eye exam: PRESENT: conjunctiva pink, EOMI. ABSENT: scleral icterus Ear exam: PRESENT: normal external ear exam Mouth exam: PRESENT: moist, tongue midline Neck exam: ABSENT: carotid bruit, JVD, lymphadenopathy, thyromegaly Respiratory exam: PRESENT: clear to auscultation maury. ABSENT: rales, rhonchi, wheezes Cardiovascular exam: PRESENT: RRR. ABSENT: diastolic murmur, rubs, systolic murmur Pulses: PRESENT: normal dorsalis pedis pul Vascular exam: PRESENT: normal capillary refill GI/Abdominal exam: PRESENT: normal bowel sounds, soft. ABSENT: distended, guarding, mass, organolmegaly, rebound, tenderness Rectal exam: PRESENT: deferred Extremities exam: PRESENT: other - + muscle wasting bilateral all four ext. Musculoskeletal exam: PRESENT: full ROM Neurological exam: PRESENT: alert, awake, oriented to person, oriented to place , oriented to time, oriented to situation, CN II-XII grossly intact. ABSENT: motor sensory deficit Psychiatric exam: PRESENT: appropriate affect, normal mood. ABSENT: homicidal ideation, suicidal ideation Skin exam: PRESENT: dry, intact, other - Sacral wound with dressing in place.. ABSENT: cyanosis, rash Results Laboratory Results: 01/03/17 05:58 01/03/17 05:58 01/03/17 01/03/17 05:58 05:58 WBC 5.4 RBC 2.95 L Hgb 7.3 L Hct 22.5 L MCV 76 L MCH 24.7 L MCHC 32.3 RDW 17.6 H Plt Count 312 Seg Neutrophils % 53.4 Lymphocytes % 34.2 Monocytes % 8.2 Eosinophils % 2.8 Basophils % 1.4 Absolute Neutrophils 2.9 Absolute Lymphocytes 1.8 Absolute Monocytes 0.4 Absolute Eosinophils 0.2 Absolute Basophils 0.1 Retic Count (auto) 1.66 Absolute Retic 0.049 Sodium 134.4 L Potassium 4.6 Chloride 102 Carbon Dioxide 25 Anion Gap 7 BUN 10 Creatinine 0.32 L Est GFR ( Amer) > 60 Est GFR (Non-Af Amer) > 60 Glucose 85 Calcium 7.8 L Iron < 10.1 L TIBC 188 L % Saturation UNABLE TO CALCULATE Ferritin 270.00 Total Bilirubin 0.2 AST 23 ALT 33 Alkaline Phosphatase 134 H Total Protein 4.8 L Albumin 2.1 L Vitamin B12 214.0 L Folate 5.17 Assessment & Plan - Diagnosis (1) Sepsis Qualifiers: Sepsis type: sepsis due to unspecified organism Qualified Code(s): A41.9 - Sepsis, unspecified organism Is this a current diagnosis for this admission?: Yes Plan: Source of Sepsis Most Likely Sacral Wound from Peptostreptococcus: Will discontinue Vancomycin. Will continue Cefepime Blood and urine cultures no growth. (2) Sacral decubitus ulcer, stage IV Is this a current diagnosis for this admission?: Yes Plan: Secondary to Peptostreptococcus: Continue wound care. Pt states that he is interested in going to [facility] for continuation of care. Pt currently on Cefepime. (3) Hyponatremia Is this a current diagnosis for this admission?: Yes Plan: Will place on sodium replacement. Will check BMP in am. (4) Iron deficiency anemia Is this a current diagnosis for this admission?: Yes Plan: Will place on Venofer for 5 days. Will give 2 units of PRBCs. (5) Vitamin B12 deficiency (dietary) anemia Is this a current diagnosis for this admission?: Yes Plan: Will give Vit B12 Replacement. (6) Severe protein-calorie malnutrition Is this a current diagnosis for this admission?: Yes Plan: Megace. Will encourage good PO intake. (7) C. difficile diarrhea Is this a current diagnosis for this admission?: Yes Plan: Vancomycin PO 125mg Q6. (8) Opioid dependence Is this a current diagnosis for this admission?: Yes Plan: Will continue to monitor pt closely. (9) Urinary tract infection Qualifiers: Urinary tract infection type: catheter-associated UTI Indwelling urinary catheter type: indwelling urethral catheter Encounter type: initial encounter Qualified Code(s): T83.511A - Infection and inflammatory reaction due to indwelling urethral catheter, initial encounter; N39.0 - Urinary tract infection , site not specified; N39.0 - Urinary tract infection, site not specified Is this a current diagnosis for this admission?: Yes (10) Hypokalemia Is this a current diagnosis for this admission?: Yes Plan: Resolved. (11) Depression Is this a current diagnosis for this admission?: Yes Plan: Will place pt on Zoloft low dose. (12) Diarrhea Is this a current diagnosis for this admission?: Yes Plan: Secondary to C. Diff: Pt on PO Vancomycin. (13) Paraplegia following spinal cord injury Is this a current diagnosis for this admission?: Yes Plan: Supportive care. (14) Encephalopathy Is this a current diagnosis for this admission?: Yes Plan: Resolved. (15) DVT prophylaxis Is this a current diagnosis for this admission?: Yes Plan: Lovenox. - Time Time Spent with patient: 15-24 minutes
[2017-01-03] MEDS: PROMETHAZINE HCL 25 MG TABLET PO PRN (15:38)
[2017-01-03] MEDS: ACETAMINOPHEN 325 MG TABLET PO PRN (18:07)
[2017-01-03] MEDS: SODIUM CHLORIDE 1 GM TABLET PO SCH (18:07)
[2017-01-03] MEDS: DOXYCYCLINE HYCLATE 100 MG TABLET PO SCH (18:07)
[2017-01-03] MEDS: SERTRALINE HCL 50 MG TABLET PO SCH (21:21)
[2017-01-03] MEDS ORDERED: DOXYCYCLINE HYCLATE 100 MG TABLET PO SCH (22:00)
[2017-01-04] MEDS: GABAPENTIN 300 MG CAPSULE PO SCH ×4 (00:59→18:09)
[2017-01-04] MEDS: VANCOMYCIN HCL INJ 500 MG VIAL PO SCH ×4 (01:58→18:10)
[2017-01-04] MEDS: OXYCODONE HCL IR 5 MG TABLET PO PRN ×3 (04:19→20:14)
[2017-01-04] MEDS: NORMAL SALINE 1000 ML 1,000 ML IV PRN ×2 (05:36→16:03)
[2017-01-04 06:17] LABS: ABSOLUTE EOSINOPHILS # (AUTO) 0.1 10^3/uL (0.0-0.6); ABSOLUTE LYMPHOCYTES (AUTO) 1.5 10^3/uL (0.5-4.7); ABSOLUTE MONOCYTES (AUTO) 0.6 10^3/uL (0.1-1.4); ABSOLUTE NEUT (AUTO) 3.7 10^3/uL (1.7-8.2); BASOPHILS % (AUTO) 0.2 % (0-2); EOSINOPHILS % (AUTO) 2.2 % (0-6); HEMATOCRIT 27.6 % (37.9-51.0); HEMOGLOBIN 9.3 g/dL (13.5-17.0); HGB HCT DIFFERENCE 0.3; LYMPHOCYTES % (AUTO) 24.9 % (13-45); MEAN CORPUSCULAR HEMOGLOBIN 26.2 pg (27.0-33.4); MEAN CORPUSCULAR HGB CONC 33.7 g/dL (32.0-36.0); MEAN CORPUSCULAR VOLUME 78 fl (80-97); MONOCYTES % (AUTO) 9.6 % (3-13); RED BLOOD COUNT 3.55 10^6/uL (4.35-5.55); RED CELL DISTRIBUTION WIDTH 17.4 % (11.5-14.0); SEGMENTED NEUTROPHILS % (AUTO) 63.1 % (42-78); WHITE BLOOD COUNT 5.9 10^3/uL (4.0-10.5)
[2017-01-04 06:44] LABS: ANION GAP 8 (5-19); BLOOD UREA NITROGEN 7 mg/dL (7-20); CALCIUM 7.9 mg/dL (8.4-10.2); CARBON DIOXIDE 26 mmol/L (22-30); CHLORIDE 102 mmol/L (98-107); CREATININE RESULT 0.27 mg/dL (0.52-1.25); GLUCOSE 99 mg/dL (75-110); POTASSIUM 4.2 mmol/L (3.6-5.0); SODIUM 136.4 mmol/L (137-145)
[2017-01-04] MEDS: MEGESTROL ACETATE 20 MG TABLET PO SCH (08:42)
[2017-01-04] MEDS: CYANOCOBALAMIN (VITAMIN B-12) INJ 1000 MCG/1 ML VIAL IM SCH (09:59)
[2017-01-04] MEDS: LACTOBACILLUS ACIDOPHILUS 250 MG TAB PO SCH ×2 (10:00→18:10)
[2017-01-04] MEDS: DOXYCYCLINE HYCLATE 100 MG TABLET PO SCH ×2 (10:00→18:09)
[2017-01-04] MEDS: SODIUM CHLORIDE 1 GM TABLET PO SCH ×3 (10:00→18:10)
[2017-01-04] MEDS: FAMOTIDINE 20 MG TABLET PO SCH ×2 (10:00→21:44)
[2017-01-04] MEDS: HYDROMORPHONE HCL 2 MG TABLET PO PRN ×2 (10:00→18:16)
[2017-01-04] MEDS: IRON SUCROSE COMPLEX INJ/PF 100 MG/5 ML SDV IV SCH (10:00)
[2017-01-04] MEDS: COLLAGENASE CLOSTRIDIUM HIST. OINT 30 GM TOP SCH (10:24)
--- NOTE | 2017-01-04 15:37 | PDOC PROGRESS REPORT ---
Subjective Progress Note for:: 01/04/17 Subjective:: Pt states that he is having a lot of pain. Pt states that his pain level is 10 /10. Pt states that he is not able to lay on his left side due to pain being more intense. Physical Exam Vital Signs: Temp Pulse Resp BP Pulse Ox 97.8 F 78 17 107/63 100 01/04/17 11:56 01/04/17 11:56 01/04/17 11:56 01/04/17 11:56 01/04/17 11:56 Intake & Output 01/03/17 01/04/17 01/05/17 06:59 06:59 06:59 Intake Total 4161 5284 237 Output Total 3900 5700 1100 Balance 261 416 863 Weight 59 kg 50.3 kg General appearance: PRESENT: mild distress, thin Head exam: PRESENT: atraumatic, normocephalic Eye exam: PRESENT: conjunctiva pink, EOMI, PERRLA. ABSENT: scleral icterus Ear exam: PRESENT: normal external ear exam Mouth exam: PRESENT: moist, tongue midline Neck exam: ABSENT: carotid bruit, JVD, lymphadenopathy, thyromegaly Respiratory exam: PRESENT: clear to auscultation maury. ABSENT: rales, rhonchi, wheezes Cardiovascular exam: PRESENT: RRR. ABSENT: diastolic murmur, rubs, systolic murmur Pulses: PRESENT: normal dorsalis pedis pul Vascular exam: PRESENT: normal capillary refill GI/Abdominal exam: PRESENT: normal bowel sounds, soft. ABSENT: distended, guarding, mass, organolmegaly, rebound, tenderness Rectal exam: PRESENT: deferred Extremities exam: PRESENT: other - + muscle wasting Musculoskeletal exam: PRESENT: other - paralyzed from waist down Neurological exam: PRESENT: alert, awake, oriented to person, oriented to place , oriented to time, oriented to situation Psychiatric exam: PRESENT: appropriate affect, normal mood. ABSENT: homicidal ideation, suicidal ideation Skin exam: PRESENT: dry, intact, warm. ABSENT: cyanosis, rash Results Laboratory Results: 01/04/17 06:00 01/04/17 05:55 01/03/17 01/04/17 01/04/17 15:05 05:55 06:00 WBC 5.9 RBC 3.55 L Hgb 9.3 L Hct 27.6 L MCV 78 L MCH 26.2 L MCHC 33.7 RDW 17.4 H Plt Count 320 Seg Neutrophils % 63.1 Lymphocytes % 24.9 Monocytes % 9.6 Eosinophils % 2.2 Basophils % 0.2 Absolute Neutrophils 3.7 Absolute Lymphocytes 1.5 Absolute Monocytes 0.6 Absolute Eosinophils 0.1 Absolute Basophils 0.0 Sodium 136.4 L Potassium 4.2 Chloride 102 Carbon Dioxide 26 Anion Gap 8 BUN 7 Creatinine 0.27 L Est GFR ( Amer) > 60 Est GFR (Non-Af Amer) > 60 Glucose 99 Calcium 7.9 L Blood Type O POSITIVE Antibody Screen NEGATIVE Assessment & Plan - Diagnosis (1) Sepsis Qualifiers: Sepsis type: sepsis due to unspecified organism Qualified Code(s): A41.9 - Sepsis, unspecified organism Is this a current diagnosis for this admission?: Yes Plan: Source of Sepsis Most Likely Sacral Wound from Peptostreptococcus: Will discontinue Cefepime. Will place on Doxycycline. Blood and urine cultures no growth. (2) Sacral decubitus ulcer, stage IV Is this a current diagnosis for this admission?: Yes Plan: Secondary to Peptostreptococcus: Continue wound care. Pt states that he is interested in going to [facility] for continuation of care. Will place pt on Doxycycline. (3) Chronic pain Qualifiers: Chronic pain type: chronic pain syndrome Qualified Code(s): G89.4 - Chronic pain syndrome Is this a current diagnosis for this admission?: Yes Plan: Will add long acting Oxycotin 10 SR BID to see if pain will improve. Will continue short acting oxycotin and dilaudid PRN. (4) Hyponatremia Is this a current diagnosis for this admission?: Yes Plan: Will continue sodium replacement. Sodium improving. (5) Iron deficiency anemia Is this a current diagnosis for this admission?: Yes Plan: Will place on Venofer for 5 days. Will give 2 units of PRBCs. Occult stool pending. (6) Vitamin B12 deficiency (dietary) anemia Is this a current diagnosis for this admission?: Yes Plan: Will continue Vit B12 Replacement. (7) Severe protein-calorie malnutrition Is this a current diagnosis for this admission?: Yes Plan: Megace. Will encourage good PO intake. (8) C. difficile diarrhea Is this a current diagnosis for this admission?: Yes Plan: Vancomycin PO 125mg Q6. Stool is thickening up. (9) Opioid dependence Is this a current diagnosis for this admission?: Yes Plan: Will continue to monitor pt closely. (10) Urinary tract infection Qualifiers: Urinary tract infection type: catheter-associated UTI Indwelling urinary catheter type: indwelling urethral catheter Encounter type: initial encounter Qualified Code(s): T83.511A - Infection and inflammatory reaction due to indwelling urethral catheter, initial encounter; N39.0 - Urinary tract infection , site not specified; N39.0 - Urinary tract infection, site not specified Is this a current diagnosis for this admission?: Yes Plan: Urine culture with no growth. (11) Hypokalemia Is this a current diagnosis for this admission?: Yes Plan: Resolved. (12) Depression Is this a current diagnosis for this admission?: Yes Plan: Will continue low dose Zoloft. (13) Diarrhea Is this a current diagnosis for this admission?: Yes Plan: Secondary to C. Diff: Pt on PO Vancomycin. (14) Paraplegia following spinal cord injury Is this a current diagnosis for this admission?: Yes Plan: Supportive care. (15) Encephalopathy Is this a current diagnosis for this admission?: Yes Plan: Resolved. (16) DVT prophylaxis Is this a current diagnosis for this admission?: Yes Plan: Lovenox. - Time Time Spent with patient: 15-24 minutes
[2017-01-04] MEDS ORDERED: OXYCODONE HCL SR 10 MG TABLET PO ONE (16:00)
[2017-01-04] MEDS: SERTRALINE HCL 50 MG TABLET PO SCH (21:44)
[2017-01-05] MEDS: GABAPENTIN 300 MG CAPSULE PO SCH ×4 (00:41→18:05)
[2017-01-05] MEDS: VANCOMYCIN HCL INJ 500 MG VIAL PO SCH ×4 (00:51→18:04)
[2017-01-05] MEDS: HYDROMORPHONE HCL 2 MG TABLET PO PRN ×3 (01:54→16:30)
[2017-01-05] MEDS: PROMETHAZINE HCL INJ 25 MG/1 ML VIAL IV PRN (04:34)
[2017-01-05] MEDS ORDERED: HYDROMORPHONE HCL INJ/PF 2 MG/ML AMPULE ONE (04:51)
[2017-01-05] MEDS ORDERED: HYDROMORPHONE HCL INJ/PF 2 MG/ML AMPULE IV ONE (05:15)
[2017-01-05 05:50] LABS: ANION GAP 8 (5-19); BLOOD UREA NITROGEN 7 mg/dL (7-20); CALCIUM 8.1 mg/dL (8.4-10.2); CARBON DIOXIDE 24 mmol/L (22-30); CHLORIDE 104 mmol/L (98-107); CREATININE RESULT 0.31 mg/dL (0.52-1.25); GLUCOSE 147 mg/dL (75-110); MAGNESIUM 1.8 mg/dL (1.6-2.3); POTASSIUM 4.1 mmol/L (3.6-5.0); SODIUM 136.3 mmol/L (137-145)
[2017-01-05] MEDS: OXYCODONE HCL IR 5 MG TABLET PO PRN ×3 (07:44→19:06)
[2017-01-05] MEDS: MEGESTROL ACETATE 20 MG TABLET PO SCH (07:45)
[2017-01-05] MEDS: CYANOCOBALAMIN (VITAMIN B-12) INJ 1000 MCG/1 ML VIAL IM SCH (09:52)
[2017-01-05] MEDS: FAMOTIDINE 20 MG TABLET PO SCH ×2 (09:52→22:25)
[2017-01-05] MEDS: IRON SUCROSE COMPLEX INJ/PF 100 MG/5 ML SDV IV SCH (09:52)
[2017-01-05] MEDS: SODIUM CHLORIDE 1 GM TABLET PO SCH ×3 (09:52→18:05)
[2017-01-05] MEDS: DOXYCYCLINE HYCLATE 100 MG TABLET PO SCH ×2 (09:52→18:05)
[2017-01-05] MEDS: LACTOBACILLUS ACIDOPHILUS 250 MG TAB PO SCH ×2 (09:52→18:05)
[2017-01-05] MEDS: COLLAGENASE CLOSTRIDIUM HIST. OINT 30 GM TOP SCH (09:55)
[2017-01-05] MEDS ORDERED: OXYCODONE HCL SR 10 MG TABLET PO SCH (10:00)
--- NOTE | 2017-01-05 13:01 | PDOC PROGRESS REPORT ---
Subjective Progress Note for:: 01/05/17 Subjective:: Pt was seen during dressing changes. Pt states states that he is still having pain. Physical Exam Vital Signs: Temp Pulse Resp BP Pulse Ox 98.8 F 78 19 108/59 L 100 01/05/17 11:37 01/05/17 11:37 01/05/17 11:37 01/05/17 11:37 01/05/17 11:37 Intake & Output 01/04/17 01/05/17 01/06/17 06:59 06:59 06:59 Intake Total 5284 4207 Output Total 5700 5250 Balance -416 -1043 Weight 50.3 kg 53.4 kg General appearance: PRESENT: no acute distress, thin Head exam: PRESENT: atraumatic, normocephalic Eye exam: PRESENT: conjunctiva pink, EOMI. ABSENT: scleral icterus Ear exam: PRESENT: normal external ear exam Mouth exam: PRESENT: moist, tongue midline Neck exam: ABSENT: carotid bruit, JVD, lymphadenopathy, thyromegaly Respiratory exam: PRESENT: clear to auscultation maury. ABSENT: rales, rhonchi, wheezes Cardiovascular exam: PRESENT: RRR. ABSENT: diastolic murmur, rubs, systolic murmur Pulses: PRESENT: normal dorsalis pedis pul Vascular exam: PRESENT: normal capillary refill GI/Abdominal exam: PRESENT: normal bowel sounds, soft, other - colostomy bag in place. ABSENT: distended, guarding, mass, organolmegaly, rebound, tenderness Rectal exam: PRESENT: deferred Extremities exam: PRESENT: other - + muscle wasting, + paralyzed lower ext. Neurological exam: PRESENT: alert, altered, awake, oriented to person, oriented to place, oriented to time, oriented to situation Psychiatric exam: PRESENT: appropriate affect, normal mood. ABSENT: homicidal ideation, suicidal ideation Skin exam: PRESENT: other - left side + large wound with good grandulation tissue. Results Laboratory Results: 01/04/17 06:00 01/05/17 04:52 01/04/17 01/05/17 19:40 04:52 Sodium 136.3 L Potassium 4.1 Chloride 104 Carbon Dioxide 24 Anion Gap 8 BUN 7 Creatinine 0.31 L Est GFR ( Amer) > 60 Est GFR (Non-Af Amer) > 60 Glucose 147 H Calcium 8.1 L Magnesium 1.8 Stool Occult Blood NEGATIVE Assessment & Plan - Diagnosis (1) Sepsis Qualifiers: Sepsis type: sepsis due to unspecified organism Qualified Code(s): A41.9 - Sepsis, unspecified organism Is this a current diagnosis for this admission?: Yes Plan: Source of Sepsis Most Likely Sacral Wound from Peptostreptococcus: Will continue Doxycycline. Blood and urine cultures no growth. (2) Sacral decubitus ulcer, stage IV Is this a current diagnosis for this admission?: Yes Plan: Secondary to Peptostreptococcus: Continue wound care. Pt [facility] that [facility]. Will place pt on Doxycycline. (3) Chronic pain Qualifiers: Chronic pain type: chronic pain syndrome Qualified Code(s): G89.4 - Chronic pain syndrome Is this a current diagnosis for this admission?: Yes Plan: Will increase long acting Oxycotin 20 SR BID to see if pain will improve and change the frequency of short acting oxycotin and dilaudid PRN. Pt reports that he was taking a total of 45 mg of Opana which would be about 80 to 90 mg of Oxycontin. (4) Hyponatremia Is this a current diagnosis for this admission?: Yes Plan: Will continue sodium replacement. Sodium improving. (5) Iron deficiency anemia Is this a current diagnosis for this admission?: Yes Plan: S/P 2 units of PRBC: Will continue Venofer for 5 days and pt should be placed on oral replacement. (6) Vitamin B12 deficiency (dietary) anemia Is this a current diagnosis for this admission?: Yes Plan: Will continue Vit B12 Replacement will need to be transitioned to q monthly. (7) Severe protein-calorie malnutrition Is this a current diagnosis for this admission?: Yes Plan: Megace. Will encourage good PO intake. (8) C. difficile diarrhea Is this a current diagnosis for this admission?: Yes Plan: Vancomycin PO 125mg Q6. Stool is thickening up. (9) Opioid dependence Is this a current diagnosis for this admission?: Yes Plan: Will continue to monitor pt closely. (10) Urinary tract infection Qualifiers: Urinary tract infection type: catheter-associated UTI Indwelling urinary catheter type: indwelling urethral catheter Encounter type: initial encounter Qualified Code(s): T83.511A - Infection and inflammatory reaction due to indwelling urethral catheter, initial encounter; N39.0 - Urinary tract infection , site not specified; N39.0 - Urinary tract infection, site not specified Is this a current diagnosis for this admission?: Yes Plan: Urine culture with no growth. (11) Hypokalemia Is this a current diagnosis for this admission?: Yes Plan: Resolved. (12) Depression Is this a current diagnosis for this admission?: Yes Plan: Will continue low dose Zoloft. (13) Diarrhea Is this a current diagnosis for this admission?: Yes Plan: Secondary to C. Diff: Pt on PO Vancomycin. (14) Paraplegia following spinal cord injury Is this a current diagnosis for this admission?: Yes Plan: Supportive care. (15) Encephalopathy Is this a current diagnosis for this admission?: Yes Plan: Resolved. (16) DVT prophylaxis Is this a current diagnosis for this admission?: Yes Plan: Lovenox. - Time Time Spent with patient: 15-24 minutes
[2017-01-05] MEDS: NORMAL SALINE 1000 ML 1,000 ML IV PRN (16:31)
[2017-01-05] MEDS: OXYCODONE HCL SR 10 MG TABLET PO SCH (22:26)
[2017-01-05] MEDS: SERTRALINE HCL 50 MG TABLET PO SCH (22:26)
[2017-01-06] MEDS: GABAPENTIN 300 MG CAPSULE PO SCH ×3 (00:24→12:06)
[2017-01-06] MEDS: VANCOMYCIN HCL INJ 500 MG VIAL PO SCH ×4 (00:26→18:11)
[2017-01-06] MEDS: HYDROMORPHONE HCL 2 MG TABLET PO PRN ×3 (01:01→16:09)
[2017-01-06] MEDS: OXYCODONE HCL IR 5 MG TABLET PO PRN ×3 (02:44→16:09)
[2017-01-06] MEDS: MEGESTROL ACETATE 20 MG TABLET PO SCH (08:57)
[2017-01-06] MEDS: CYANOCOBALAMIN (VITAMIN B-12) INJ 1000 MCG/1 ML VIAL IM SCH (10:50)
[2017-01-06] MEDS: LACTOBACILLUS ACIDOPHILUS 250 MG TAB PO SCH ×2 (10:51→18:11)
[2017-01-06] MEDS: DOXYCYCLINE HYCLATE 100 MG TABLET PO SCH ×2 (10:51→18:09)
[2017-01-06] MEDS: SODIUM CHLORIDE 1 GM TABLET PO SCH ×3 (10:51→18:11)
[2017-01-06] MEDS: OXYCODONE HCL SR 10 MG TABLET PO SCH ×2 (10:51→21:15)
[2017-01-06] MEDS: IRON SUCROSE COMPLEX INJ/PF 100 MG/5 ML SDV IV SCH (10:51)
[2017-01-06] MEDS: FAMOTIDINE 20 MG TABLET PO SCH ×2 (10:51→21:15)
[2017-01-06] MEDS: COLLAGENASE CLOSTRIDIUM HIST. OINT 30 GM TOP SCH (10:52)
--- NOTE | 2017-01-06 17:12 | PDOC PROGRESS REPORT ---
Subjective Progress Note for:: 01/06/17 Subjective:: Patient with history of chronic pain presenting with sepsis due to his chronic decubitis ulcer. Patient now with cdiff. Patient is complaining of pain stating that nothing is helping. Per nurse patient stools seems to be forming up but he is still requiring quite a bit of pain medication. Physical Exam Vital Signs: Temp Pulse Resp BP Pulse Ox 99.1 F 88 17 108/56 L 99 01/05/17 20:36 01/06/17 07:00 01/05/17 20:36 01/05/17 20:36 01/05/17 20:36 Intake & Output 01/05/17 01/06/17 01/07/17 06:59 06:59 06:59 Intake Total 4207 3217 Output Total 5250 4100 Balance -1043 -883 Weight 53.4 kg 52.6 kg General appearance: PRESENT: mild distress, thin Head exam: PRESENT: normocephalic Eye exam: PRESENT: EOMI. ABSENT: scleral icterus Ear exam: PRESENT: normal external ear exam Mouth exam: PRESENT: moist Neck exam: ABSENT: carotid bruit, JVD, lymphadenopathy, thyromegaly Respiratory exam: PRESENT: clear to auscultation maury. ABSENT: rales, rhonchi, wheezes Cardiovascular exam: PRESENT: RRR. ABSENT: diastolic murmur, rubs, systolic murmur Pulses: PRESENT: normal dorsalis pedis pul Vascular exam: PRESENT: normal capillary refill GI/Abdominal exam: PRESENT: normal bowel sounds, soft, other - colostomy with stool.. ABSENT: distended, guarding, mass, organolmegaly, rebound, tenderness Rectal exam: PRESENT: deferred Extremities exam: PRESENT: full ROM. ABSENT: calf tenderness, clubbing, pedal edema Neurological exam: PRESENT: alert, awake, oriented to person, oriented to place , oriented to time, oriented to situation, CN II-XII grossly intact. ABSENT: motor sensory deficit Psychiatric exam: PRESENT: appropriate affect, normal mood. ABSENT: homicidal ideation, suicidal ideation Skin exam: PRESENT: dry, warm, other - ulcer with dressing on left hip. ABSENT : cyanosis, rash Results Laboratory Results: 01/04/17 06:00 01/05/17 04:52 01/03/17 05:58 Transferrin 120 L Assessment & Plan - Diagnosis (1) C. difficile diarrhea Is this a current diagnosis for this admission?: Yes Plan: Patient currently on oral vancomycin. Will increase dose to 250mg Q6 for a total of 14 days. (2) DVT prophylaxis Is this a current diagnosis for this admission?: Yes Plan: Patent on lovenox. (3) Depression Is this a current diagnosis for this admission?: Yes Plan: Will change patient to cymbalta as this may also help with his pain. (4) Hypokalemia Is this a current diagnosis for this admission?: Yes Plan: Resolved. (5) Iron deficiency anemia Is this a current diagnosis for this admission?: Yes Plan: Patient currently on venofer to complete a 5 day course. (6) Opioid dependence Is this a current diagnosis for this admission?: Yes Plan: Patient continue on his home medications. Hopefully with the increase in the gabapentin and the addition of cymbalta, patient will request less opiates. (7) Sacral decubitus ulcer, stage IV Is this a current diagnosis for this admission?: Yes Plan: Patient currently on doxyclycine and and receiving local wound care. Will continue antibiotics for 14 days. (8) Sepsis Qualifiers: Sepsis type: sepsis due to unspecified organism Qualified Code(s): A41.9 - Sepsis, unspecified organism Is this a current diagnosis for this admission?: Yes Plan: Due to sacral wound. Patient clinically improved. Will continue treatment with doxycycline and local wound care. (9) Urinary tract infection Qualifiers: Urinary tract infection type: catheter-associated UTI Indwelling urinary catheter type: indwelling urethral catheter Encounter type: initial encounter Qualified Code(s): T83.511A - Infection and inflammatory reaction due to indwelling urethral catheter, initial encounter; N39.0 - Urinary tract infection , site not specified; N39.0 - Urinary tract infection, site not specified Is this a current diagnosis for this admission?: Yes (10) Vitamin B12 deficiency (dietary) anemia Is this a current diagnosis for this admission?: Yes Plan: Continue with B12 replacement which change to IM weekly for 8 weeks and then monthly. (11) Paraplegia following spinal cord injury Is this a current diagnosis for this admission?: Yes Plan: Continue with supportive care. Patient is considering [facility]ci placement. (12) Encephalopathy Is this a current diagnosis for this admission?: Yes Plan: Do to infection now resolved. (13) Hyponatremia Plan: Still will mild hyponatremia. Will hydrate as patient is still having diarrhea from the c diff. (14) Severe protein-calorie malnutrition Is this a current diagnosis for this admission?: Yes Plan: Continue dietary supplement. Megace was increased to 400mg daily. (15) Chronic pain Qualifiers: Chronic pain type: other chronic postprocedural pain Qualified Code(s): G89.28 - Other chronic postprocedural pain Is this a current diagnosis for this admission?: Yes Plan: Continue current medications. Increased gabapentin to 800mg TID. Started baclofen 5mg TID. Started patient on cymbalta 20mg daily which can help with his patient also. - Time Time Spent with patient: Less than 15 minutes Anticipated discharge: SNF Within: when bed available - Inpatient Certification Medical Necessity: Need For IV Fluids
[2017-01-06] MEDS ORDERED: NORMAL SALINE 1000 ML 1,000 ML IV PRN (17:13)
[2017-01-06] MEDS ORDERED: GABAPENTIN 300 MG CAPSULE PO SCH (18:00)
[2017-01-06] MEDS: BACLOFEN 10 MG TABLET PO SCH (18:09)
[2017-01-06] MEDS: GABAPENTIN 400 MG CAPSULE PO SCH (21:15)
[2017-01-07] MEDS: VANCOMYCIN HCL INJ 500 MG VIAL PO SCH ×5 (00:55→23:16)
[2017-01-07] MEDS: OXYCODONE HCL IR 5 MG TABLET PO PRN ×2 (03:32→16:09)
[2017-01-07 04:54] LABS: ABSOLUTE EOSINOPHILS # (AUTO) 0.1 10^3/uL (0.0-0.6); ABSOLUTE LYMPHOCYTES (AUTO) 1.5 10^3/uL (0.5-4.7); ABSOLUTE MONOCYTES (AUTO) 0.9 10^3/uL (0.1-1.4); ABSOLUTE NEUT (AUTO) 5.2 10^3/uL (1.7-8.2); BASOPHILS % (AUTO) 0.6 % (0-2); EOSINOPHILS % (AUTO) 0.7 % (0-6); HEMATOCRIT 28.6 % (37.9-51.0); HEMOGLOBIN 9.6 g/dL (13.5-17.0); HGB HCT DIFFERENCE 0.2; LYMPHOCYTES % (AUTO) 19.6 % (13-45); MEAN CORPUSCULAR HEMOGLOBIN 26.5 pg (27.0-33.4); MEAN CORPUSCULAR HGB CONC 33.6 g/dL (32.0-36.0); MEAN CORPUSCULAR VOLUME 79 fl (80-97); MONOCYTES % (AUTO) 11.5 % (3-13); RED BLOOD COUNT 3.63 10^6/uL (4.35-5.55); RED CELL DISTRIBUTION WIDTH 19.2 % (11.5-14.0); SEGMENTED NEUTROPHILS % (AUTO) 67.6 % (42-78); WHITE BLOOD COUNT 7.8 10^3/uL (4.0-10.5)
[2017-01-07 05:14] LABS: ANION GAP 11 (5-19); BLOOD UREA NITROGEN 6 mg/dL (7-20); CALCIUM 8.4 mg/dL (8.4-10.2); CARBON DIOXIDE 23 mmol/L (22-30); CHLORIDE 101 mmol/L (98-107); CREATININE RESULT 0.34 mg/dL (0.52-1.25); GLUCOSE 98 mg/dL (75-110); MAGNESIUM 1.7 mg/dL (1.6-2.3); POTASSIUM 4.2 mmol/L (3.6-5.0); SODIUM 135.2 mmol/L (137-145)
[2017-01-07] MEDS: GABAPENTIN 400 MG CAPSULE PO SCH ×3 (05:23→21:25)
[2017-01-07] MEDS ORDERED: NORMAL SALINE 1000 ML 1,000 ML IV ONE (07:15)
[2017-01-07] MEDS: OXYCODONE HCL SR 10 MG TABLET PO SCH ×2 (09:22→21:25)
[2017-01-07] MEDS: HYDROMORPHONE HCL 2 MG TABLET PO PRN ×3 (09:23→23:12)
[2017-01-07] MEDS: SODIUM CHLORIDE 1 GM TABLET PO SCH ×3 (09:24→18:19)
[2017-01-07] MEDS: FAMOTIDINE 20 MG TABLET PO SCH ×2 (09:24→21:25)
[2017-01-07] MEDS: DULOXETINE HCL 20 MG CAPSULE.DR PO SCH (09:24)
[2017-01-07] MEDS: LACTOBACILLUS ACIDOPHILUS 250 MG TAB PO SCH ×2 (09:24→18:20)
[2017-01-07] MEDS: DOXYCYCLINE HYCLATE 100 MG TABLET PO SCH ×2 (09:25→18:21)
[2017-01-07] MEDS: BACLOFEN 10 MG TABLET PO SCH ×3 (09:25→18:19)
[2017-01-07] MEDS: MEGESTROL ACETATE SUSP 400 MG/10 ML UDCUP PO SCH (09:25)
[2017-01-07] MEDS: IRON SUCROSE COMPLEX INJ/PF 100 MG/5 ML SDV IV SCH (09:25)
[2017-01-07] MEDS: CYANOCOBALAMIN (VITAMIN B-12) INJ 1000 MCG/1 ML VIAL IM SCH (09:26)
[2017-01-07] MEDS: COLLAGENASE CLOSTRIDIUM HIST. OINT 30 GM TOP SCH (12:07)
[2017-01-08] MEDS: ACETAMINOPHEN 325 MG TABLET PO PRN (04:32)
[2017-01-08] MEDS: OXYCODONE HCL IR 5 MG TABLET PO PRN (04:34)
[2017-01-08] MEDS: VANCOMYCIN HCL INJ 500 MG VIAL PO SCH ×4 (05:19→23:28)
[2017-01-08] MEDS: GABAPENTIN 400 MG CAPSULE PO SCH ×3 (05:20→21:09)
[2017-01-08] MEDS: LACTOBACILLUS ACIDOPHILUS 250 MG TAB PO SCH ×2 (09:07→18:11)
[2017-01-08] MEDS: DULOXETINE HCL 20 MG CAPSULE.DR PO SCH (09:08)
[2017-01-08] MEDS: BACLOFEN 10 MG TABLET PO SCH ×2 (09:08→21:08)
[2017-01-08] MEDS: FAMOTIDINE 20 MG TABLET PO SCH ×2 (09:09→21:08)
[2017-01-08] MEDS: OXYCODONE HCL SR 10 MG TABLET PO SCH ×2 (09:09→21:08)
[2017-01-08] MEDS: MEGESTROL ACETATE SUSP 400 MG/10 ML UDCUP PO SCH (09:11)
[2017-01-08] MEDS: CYANOCOBALAMIN (VITAMIN B-12) INJ 1000 MCG/1 ML VIAL IM SCH (09:11)
[2017-01-08] MEDS: COLLAGENASE CLOSTRIDIUM HIST. OINT 30 GM TOP SCH (09:12)
[2017-01-08] MEDS: SODIUM CHLORIDE 1 GM TABLET PO SCH ×3 (09:27→18:11)
[2017-01-08] MEDS: DOXYCYCLINE HYCLATE 100 MG TABLET PO SCH ×2 (09:27→18:12)
--- NOTE | 2017-01-08 12:11 | PDOC PROGRESS REPORT ---
Subjective Progress Note for:: 01/07/17 Subjective:: Patient with history of chronic pain presenting with sepsis due to his chronic decubitis ulcer. Patient now with cdiff. Patient is complaining of pain stating that nothing is helping. Patient feeling better today although drowsy. Physical Exam Vital Signs: Temp Pulse Resp BP Pulse Ox 98.3 F 97 20 105/43 L 100 01/07/17 19:50 01/07/17 19:50 01/07/17 19:50 01/07/17 19:50 01/07/17 19:50 Intake & Output 01/06/17 01/07/17 01/08/17 06:59 06:59 06:59 Intake Total 3217 8936 3407 Output Total 4100 4400 1400 Balance -883 4536 2006 Weight 52.6 kg 53.1 kg General appearance: PRESENT: no acute distress, thin Head exam: PRESENT: normocephalic, other - bitemporal wasting Eye exam: PRESENT: EOMI. ABSENT: scleral icterus Ear exam: PRESENT: normal external ear exam Mouth exam: PRESENT: moist Neck exam: ABSENT: carotid bruit, JVD, lymphadenopathy, thyromegaly Respiratory exam: PRESENT: clear to auscultation maury. ABSENT: rales, rhonchi, wheezes Cardiovascular exam: PRESENT: RRR. ABSENT: diastolic murmur, rubs, systolic murmur Pulses: PRESENT: normal dorsalis pedis pul Vascular exam: PRESENT: normal capillary refill GI/Abdominal exam: PRESENT: normal bowel sounds, soft, other - colostomy bag in place.. ABSENT: distended, guarding, mass, organolmegaly, rebound, tenderness Rectal exam: PRESENT: deferred Extremities exam: PRESENT: full ROM. ABSENT: calf tenderness, clubbing, pedal edema Musculoskeletal exam: PRESENT: deformity - Fractures, other - Muscle wasting Neurological exam: PRESENT: alert, awake, oriented to person, oriented to place , oriented to time, oriented to situation. ABSENT: motor sensory deficit Psychiatric exam: PRESENT: appropriate affect, normal mood. ABSENT: homicidal ideation, suicidal ideation Skin exam: PRESENT: dry, intact, warm, other - dressing on left hip. ABSENT: cyanosis, rash Results Laboratory Results: 01/07/17 04:16 01/07/17 04:16 11/22/17 11/22/17 04:16 04:16 WBC 7.8 RBC 3.63 L Hgb 9.6 L Hct 28.6 L MCV 79 L MCH 26.5 L MCHC 33.6 RDW 19.2 H Plt Count 390 Seg Neutrophils % 67.6 Lymphocytes % 19.6 Monocytes % 11.5 Eosinophils % 0.7 Basophils % 0.6 Absolute Neutrophils 5.2 Absolute Lymphocytes 1.5 Absolute Monocytes 0.9 Absolute Eosinophils 0.1 Absolute Basophils 0.0 Sodium 135.2 L Potassium 4.2 Chloride 101 Carbon Dioxide 23 Anion Gap 11 BUN 6 L Creatinine 0.34 L Est GFR ( Amer) > 60 Est GFR (Non-Af Amer) > 60 Glucose 98 Calcium 8.4 Magnesium 1.7 Assessment & Plan - Diagnosis (1) C. difficile diarrhea Is this a current diagnosis for this admission?: Yes Plan: Continue oral vancomycin to complete 14 days of treatment. Patient appears to be doing better. (2) DVT prophylaxis Is this a current diagnosis for this admission?: Yes Plan: Continue Lovenox. (3) Depression Is this a current diagnosis for this admission?: Yes Plan: The Cymbalta appears to be working as far as the pain goes. Will take some time to affect the mood. (4) Hypokalemia Is this a current diagnosis for this admission?: Yes Plan: Most likely due to poor oral intake. Now resolved. (5) Iron deficiency anemia Is this a current diagnosis for this admission?: Yes Plan: Patient being given Venofer. Patient should resume a oral iron following infusion. (6) Opioid dependence Is this a current diagnosis for this admission?: Yes Plan: Patient continue on his home medications. As stated previously hopefully with the use of Cymbalta, gabapentin, and baclofen patient may not use as many opiates. (7) Sacral decubitus ulcer, stage IV Is this a current diagnosis for this admission?: Yes Plan: Patient currently on doxyclycine and and receiving local wound care. Will continue antibiotics for 14 days. (8) Sepsis Qualifiers: Sepsis type: sepsis due to unspecified organism Qualified Code(s): A41.9 - Sepsis, unspecified organism Is this a current diagnosis for this admission?: Yes Plan: Due to sacral wound. Patient clinically improved. Will continue treatment with doxycycline and local wound care. (9) Urinary tract infection Qualifiers: Urinary tract infection type: catheter-associated UTI Indwelling urinary catheter type: indwelling urethral catheter Encounter type: initial encounter Qualified Code(s): T83.511A - Infection and inflammatory reaction due to indwelling urethral catheter, initial encounter; N39.0 - Urinary tract infection , site not specified; N39.0 - Urinary tract infection, site not specified Is this a current diagnosis for this admission?: Yes Plan: Patient urine is not growing any bacteria at this time. He currently does not have a UTI. (10) Vitamin B12 deficiency (dietary) anemia Is this a current diagnosis for this admission?: Yes Plan: Continue with B12 replacement which change to IM weekly for 8 weeks and then monthly. The patient can be switched to oral supplement patient has received several doses of IM B12. (11) Paraplegia following spinal cord injury Is this a current diagnosis for this admission?: Yes Plan: Continue with supportive care. Patient is considering senior living placement. (12) Encephalopathy Is this a current diagnosis for this admission?: Yes Plan: Due to infection now resolved. (13) Hyponatremia Plan: Patient continues to have mild hyponatremia. Continue to monitor. (14) Severe protein-calorie malnutrition Is this a current diagnosis for this admission?: Yes Plan: Continue dietary supplement. Megace was increased to 400mg daily. Patient is eating quite well now. (15) Chronic pain Qualifiers: Chronic pain type: other chronic postprocedural pain Qualified Code(s): G89.28 - Other chronic postprocedural pain Is this a current diagnosis for this admission?: Yes Plan: Continue current medications. Continue with the gabapentin 800 3 times daily, Cymbalta 20, baclofen be increased to 10 mg p.o. 3 times daily. Patient is also using opiates. Plain to patient that the use of non-opiate medications to help decrease the need for opiate medications. - Time Time Spent with patient: Less than 15 minutes Anticipated discharge: SNF Within: when bed available
--- NOTE | 2017-01-08 12:34 | PDOC PROGRESS REPORT ---
Subjective Progress Note for:: 01/08/17 Subjective:: Patient with history of chronic pain presenting with sepsis due to his chronic decubitis ulcer. Patient now with cdiff. She states he is feeling pretty good today. He says he feels like everything is now working better. Patient states he slept well last night. Patient ate well this morning. Physical Exam Vital Signs: Temp Pulse Resp BP Pulse Ox 99.9 F 91 16 93/43 L 100 01/08/17 11:56 01/08/17 11:56 01/08/17 11:56 01/08/17 11:56 01/08/17 11:56 Intake & Output 01/07/17 01/08/17 01/09/17 06:59 06:59 06:59 Intake Total 8936 4629 Output Total 4400 2050 Balance 4536 2579 Weight 53.1 kg 57.1 kg General appearance: PRESENT: no acute distress, thin Head exam: PRESENT: normocephalic, other - bitemporal wasting Eye exam: PRESENT: EOMI. ABSENT: scleral icterus Ear exam: PRESENT: normal external ear exam Mouth exam: PRESENT: moist Neck exam: ABSENT: carotid bruit, JVD, lymphadenopathy, thyromegaly Respiratory exam: PRESENT: clear to auscultation maury. ABSENT: rales, rhonchi, wheezes Cardiovascular exam: PRESENT: RRR. ABSENT: diastolic murmur, rubs, systolic murmur Pulses: PRESENT: normal dorsalis pedis pul Vascular exam: PRESENT: normal capillary refill GI/Abdominal exam: PRESENT: normal bowel sounds, soft, other - colostomy in place with stool. ABSENT: distended, guarding, mass, organolmegaly, rebound, tenderness Rectal exam: PRESENT: deferred Extremities exam: ABSENT: calf tenderness, clubbing, pedal edema Musculoskeletal exam: PRESENT: deformity - contracted, other - muscle wasting of the leg Neurological exam: PRESENT: alert, awake, oriented to person, oriented to place , oriented to time, oriented to situation, CN II-XII grossly intact. ABSENT: motor sensory deficit Psychiatric exam: PRESENT: appropriate affect, normal mood. ABSENT: homicidal ideation, suicidal ideation Skin exam: PRESENT: dry, intact, warm, other - dressing on left hip. ABSENT: cyanosis, rash Results Laboratory Results: 01/07/17 04:16 01/07/17 04:16 Assessment & Plan - Diagnosis (1) C. difficile diarrhea Is this a current diagnosis for this admission?: Yes Plan: Continue oral vancomycin to complete 14 days of treatment. Patient still in isolation. (2) Depression Is this a current diagnosis for this admission?: Yes Plan: Continue cymbalta and allow it time to work. (3) Hypokalemia Is this a current diagnosis for this admission?: Yes Plan: Resolved. Monitor intermittently and replace as needed. (4) Iron deficiency anemia Is this a current diagnosis for this admission?: Yes Plan: Patient being given Venofer. Patient should resume a oral iron following infusion. (5) Opioid dependence Is this a current diagnosis for this admission?: Yes Plan: Patient continue on his home medications. Continue Cymbalta, gabapentin, and baclofen as opiate sparing medications. (6) Sacral decubitus ulcer, stage IV Is this a current diagnosis for this admission?: Yes Plan: Patient currently on doxyclycine and and receiving local wound care. Patient should complete 2 weeks of antibiotics. (7) Sepsis Qualifiers: Sepsis type: sepsis due to unspecified organism Qualified Code(s): A41.9 - Sepsis, unspecified organism Is this a current diagnosis for this admission?: Yes Plan: Due to sacral wound. Patient clinically improved. Will continue treatment with doxycycline and local wound care. (8) Urinary tract infection Qualifiers: Urinary tract infection type: catheter-associated UTI Indwelling urinary catheter type: indwelling urethral catheter Encounter type: initial encounter Qualified Code(s): T83.511A - Infection and inflammatory reaction due to indwelling urethral catheter, initial encounter; N39.0 - Urinary tract infection , site not specified; N39.0 - Urinary tract infection, site not specified Is this a current diagnosis for this admission?: Yes Plan: Patient urine is not growing any bacteria at this time. He currently does not have a UTI. (9) Vitamin B12 deficiency (dietary) anemia Is this a current diagnosis for this admission?: Yes Plan: Patient switched to oral B12 today. (10) Paraplegia following spinal cord injury Is this a current diagnosis for this admission?: Yes Plan: Continue with supportive care. Patient is considering jail placement. Referrals are being sent to other locations. (11) Encephalopathy Is this a current diagnosis for this admission?: Yes Plan: Due to infection, now resolved. (12) Hyponatremia Plan: Patient continues to have mild hyponatremia. Will continue to monitor. (13) Severe protein-calorie malnutrition Is this a current diagnosis for this admission?: Yes Plan: Continue dietary supplement. Continue megace. Patient is eating better. (14) Chronic pain Qualifiers: Chronic pain type: other chronic postprocedural pain Qualified Code(s): G89.28 - Other chronic postprocedural pain Is this a current diagnosis for this admission?: Yes Plan: Continue current medications. Continue with the gabapentin 800 3 times daily, Cymbalta 20, baclofen be increased to 10 mg p.o. 3 times daily. Patient is also using opiates. Explained to patient the goal is to decrease that amount of opiates being used to manage his pain. (15) DVT prophylaxis Is this a current diagnosis for this admission?: Yes Plan: Continue Lovenox. - Time Time Spent with patient: Less than 15 minutes Anticipated discharge: SNF Within: when bed available
[2017-01-08] MEDS ORDERED: BACLOFEN 10 MG TABLET PO SCH (14:00)
[2017-01-08] MEDS: HYDROMORPHONE HCL 2 MG TABLET PO PRN ×2 (14:02→18:12)
[2017-01-08] MEDS: CYANOCOBALAMIN (VITAMIN B-12) 1,000 MCG TABLET PO SCH (14:49)
[2017-01-09] MEDS: HYDROMORPHONE HCL 2 MG TABLET PO PRN ×3 (04:30→19:34)
[2017-01-09] MEDS: NORMAL SALINE 1000 ML 1,000 ML IV PRN ×2 (05:05→23:55)
[2017-01-09] MEDS: BACLOFEN 10 MG TABLET PO SCH ×3 (05:07→21:29)
[2017-01-09] MEDS: GABAPENTIN 400 MG CAPSULE PO SCH ×3 (05:07→21:29)
[2017-01-09] MEDS: VANCOMYCIN HCL INJ 500 MG VIAL PO SCH ×4 (05:07→23:55)
[2017-01-09] MEDS: LACTOBACILLUS ACIDOPHILUS 250 MG TAB PO SCH ×2 (10:53→18:56)
[2017-01-09] MEDS: DULOXETINE HCL 20 MG CAPSULE.DR PO SCH (10:53)
[2017-01-09] MEDS: MEGESTROL ACETATE SUSP 400 MG/10 ML UDCUP PO SCH (10:54)
[2017-01-09] MEDS: FAMOTIDINE 20 MG TABLET PO SCH ×2 (10:54→21:29)
[2017-01-09] MEDS: SODIUM CHLORIDE 1 GM TABLET PO SCH ×3 (10:54→18:57)
[2017-01-09] MEDS: OXYCODONE HCL SR 10 MG TABLET PO SCH ×2 (10:54→21:29)
[2017-01-09] MEDS: COLLAGENASE CLOSTRIDIUM HIST. OINT 30 GM TOP SCH (10:55)
[2017-01-09] MEDS: DOXYCYCLINE HYCLATE 100 MG TABLET PO SCH ×2 (10:55→18:57)
--- NOTE | 2017-01-09 11:05 | PDOC PROGRESS REPORT ---
Subjective Progress Note for:: 01/09/17 Subjective:: The patient has been admitted with severe sepsis secondary to a massive decubitus ulcer. His hospital course has been complicated by the development of C. difficile colitis, severe depression, iron deficiency anemia, opioid dependency, B12 deficiency and severe protein calorie malnutrition. Physical Exam Vital Signs: Temp Pulse Resp BP Pulse Ox 100.1 F 116 H 18 113/78 99 01/09/17 07:35 01/09/17 07:35 01/09/17 07:35 01/09/17 07:35 01/09/17 07:35 Intake & Output 01/08/17 01/09/17 01/10/17 06:59 06:59 06:59 Intake Total 4629 3300 Output Total 2050 3726 Balance 2579 -426 Weight 57.1 kg 55.3 kg Additional comments: The patient is thin. At the present time his cognition and mentation are normal. He interacts appropriately and is pleasant. Cranial nerves II through XII are intact. His facial appearance is normal. His lungs are clear to auscultation bilaterally. His cardiac exam is regular without murmurs, gallops or rubs. The abdomen is soft and flat. Bowel sounds are present. Does not have any guarding or rebound noted. The lower extremities are thin. He does not have any pitting edema. He has ulcers on his heels that are currently covered with Tegaderm. I did evaluate the left ulcer. This has good granulation tissue. I am waiting to evaluate the other larger sacral decubitus ulcer later when the nurse is due to change the dressing. Results Laboratory Results: 01/07/17 04:16 01/07/17 04:16 Assessment & Plan - Diagnosis (1) Sepsis Qualifiers: Sepsis type: sepsis due to unspecified organism Qualified Code(s): A41.9 - Sepsis, unspecified organism Is this a current diagnosis for this admission?: Yes (2) Opioid dependence Is this a current diagnosis for this admission?: Yes (3) Sacral decubitus ulcer, stage IV Is this a current diagnosis for this admission?: Yes (4) Urinary tract infection Qualifiers: Urinary tract infection type: catheter-associated UTI Indwelling urinary catheter type: indwelling urethral catheter Encounter type: initial encounter Qualified Code(s): T83.511A - Infection and inflammatory reaction due to indwelling urethral catheter, initial encounter; N39.0 - Urinary tract infection , site not specified; N39.0 - Urinary tract infection, site not specified Is this a current diagnosis for this admission?: Yes (5) Paraplegia following spinal cord injury Is this a current diagnosis for this admission?: Yes (6) History of Clostridium difficile colitis Is this a current diagnosis for this admission?: Yes (7) Osteomyelitis hip Is this a current diagnosis for this admission?: Yes (8) Severe protein-calorie malnutrition Is this a current diagnosis for this admission?: Yes (9) Tobacco abuse Is this a current diagnosis for this admission?: Yes (10) Chronic pain Qualifiers: Chronic pain type: other chronic postprocedural pain Qualified Code(s): G89.28 - Other chronic postprocedural pain Is this a current diagnosis for this admission?: Yes (11) C. difficile diarrhea Is this a current diagnosis for this admission?: Yes (12) Depression Is this a current diagnosis for this admission?: Yes (13) Hyponatremia Is this a current diagnosis for this admission?: Yes (14) Iron deficiency anemia Is this a current diagnosis for this admission?: Yes (15) Vitamin B12 deficiency (dietary) anemia Is this a current diagnosis for this admission?: Yes - Time Time Spent with patient: 15-24 minutes - Inpatient Certification Medical Necessity: Need Close Monitoring Due to Risk of Patient Decompensation, Risk of Complication if Not Cared For in Hospital - Plan Summary Plan Summary: The patient will complete 14 days of oral vancomycin for C. difficile colitis. Cymbalta will be continued for depression. We will monitor electrolytes and replace potassium, etc. as needed. The patient has received Venofer for iron deficiency anemia. He is currently receiving Cymbalta, gabapentin and baclofen for his chronic pain and opioid dependency. He is getting Dilaudid for breakthrough pain but we are trying to decrease the dependency on opioids. The gabapentin and baclofen have recently been increased. I will not make any changes today. We will continue doxycycline for the sacral wounds and sepsis. He is also receiving supplemental oral B12. Patient has a severe underlying protein calorie malnutrition and supplements will be continued.
[2017-01-09] MEDS: CYANOCOBALAMIN (VITAMIN B-12) 1,000 MCG TABLET PO SCH (15:31)
[2017-01-10] MEDS: NORMAL SALINE 1000 ML 1,000 ML IV SCH ×2 (01:47→03:50)
[2017-01-10] MEDS ORDERED: DEXTROSE 5%-WATER 250 ML with NOREPINEPHRINE BITARTRATE 4 MG IV PRN ×2 (05:44)
[2017-01-10] MEDS ORDERED: NOREPINEPHRINE BITARTRATE INJ/PF 4 MG/4 ML SDV IV ONE (05:58)
[2017-01-10] MEDS ORDERED: LIDOCAINE 1% INJ-PF (10 MG/ML) 30 ML SDV ONE (08:17)
[2017-01-10] MEDS: MORPHINE SULFATE 10 MG/ML INJ IV PRN ×2 (08:36→19:55)
--- NOTE | 2017-01-10 08:59 | RADIOLOGY REPORT (SQ) ---
EXAM DESCRIPTION: CHEST SINGLE VIEW COMPLETED DATE/TIME: 01/10/2017 8:48 am REASON FOR STUDY: Central Line Placement COMPARISON: 08/27/2016. FINDINGS: Single-view chest reveals left IJ line, tip to the superior vena cava. No pneumothorax. TECHNICAL DOCUMENTATION: JOB ID: [id number]
--- NOTE | 2017-01-10 09:28 | OPERATIVE REPORT E ---
Operative Report NAME: SONU MENARD : 1960 AGE: 56Y DATE OF SURGERY: 01/10/2017 ROOM: 601 PREOPERATIVE DIAGNOSES: 1. Dehydration. 2. Colitis. 3. Need for central venous access. POSTOPERATIVE DIAGNOSES: 1. Dehydration. 2. Colitis. 3. Need for central venous access. OPERATIVE PROCEDURE: Insertion of central venous catheter to the left internal jugular vein under ultrasound guidance. SURGEON: JERMAIN NORTH M.D. ANESTHESIA: Local. INDICATION: The informed consent after explaining possibility of pneumothorax, bleeding, possibility of infections. DESCRIPTION OF OPERATION: After cleaning and draping the area, ultrasound was performed. Left internal jugular vein was accessed by using select technique under ultrasound guidance. However, the dilator was passed, dilated, and then triple lumen catheter inserted into the superior vena cava. Excellent venous flow. All catheter ports flushed with heparinized solution and the catheter securely placed . The patient tolerated the procedure very well. DICTATING PHYSICIAN: JERMAIN NORTH M.D. [id number] Y#: [id number] ID: [id number] JOB#: [id number] ACCT: [id number] cc:JERMAIN NORTH M.D. > [facility]
[2017-01-10] MEDS: COLLAGENASE CLOSTRIDIUM HIST. OINT 30 GM TOP SCH (09:52)
[2017-01-10] MEDS: LACTOBACILLUS ACIDOPHILUS 250 MG TAB PO SCH ×2 (09:52→17:31)
[2017-01-10] MEDS: OXYCODONE HCL SR 10 MG TABLET PO SCH ×2 (09:53→21:38)
[2017-01-10] MEDS: GABAPENTIN 400 MG CAPSULE PO SCH ×3 (09:54→21:38)
[2017-01-10] MEDS: DOXYCYCLINE HYCLATE 100 MG TABLET PO SCH (09:54)
[2017-01-10] MEDS: FAMOTIDINE 20 MG TABLET PO SCH ×2 (09:54→21:37)
[2017-01-10] MEDS: NORMAL SALINE 1000 ML 1,000 ML IV PRN (09:55)
[2017-01-10] MEDS: BACLOFEN 10 MG TABLET PO SCH ×2 (09:56→17:30)
[2017-01-10] MEDS: VANCOMYCIN HCL INJ 500 MG VIAL PO SCH ×3 (09:57→17:30)
[2017-01-10] MEDS ORDERED: BACLOFEN 20 MG TABLET PO SCH (10:00)
[2017-01-10] MEDS: MEGESTROL ACETATE SUSP 400 MG/10 ML UDCUP PO SCH (10:08)
[2017-01-10] MEDS: SODIUM CHLORIDE 1 GM TABLET PO SCH ×3 (10:09→17:30)
[2017-01-10] MEDS: DULOXETINE HCL 20 MG CAPSULE.DR PO SCH (10:49)
--- NOTE | 2017-01-10 11:39 | PDOC PROGRESS REPORT ---
Subjective Progress Note for:: 01/10/17 Subjective:: The patient has been admitted with severe sepsis secondary to a massive decubitus ulcer. His hospital course has been complicated by the development of C. difficile colitis, severe depression, iron deficiency anemia, opioid dependency, B12 deficiency and severe protein calorie malnutrition. Overnight, the patient was transferred to the intensive care unit for severe hypotension. His blood pressure did respond to resuscitation with intravenous normal saline. However, currently, he is on a low-dose Levophed drip. The low blood pressure could in part be secondary to a recent increase in the patient's dose of baclofen. During this episode the patient remained awake and conversant with normal cognition. Physical Exam Vital Signs: Temp Pulse Resp BP Pulse Ox 97.5 F 86 27 H 115/63 100 01/10/17 09:49 01/10/17 10:00 01/10/17 09:49 01/10/17 09:49 01/10/17 09:49 Intake & Output 01/09/17 01/10/17 01/11/17 06:59 06:59 06:59 Intake Total 3300 5712 320 Output Total 3726 1695 315 Balance -426 4017 5 Weight 55.3 kg 55.3 kg Additional comments: The patient appears to be at his baseline. His cognition is good. He realizes that he is in the ICU and he understands why he was transferred. He recalls the details overnight. He is currently complaining of pain in the sacrum. He also continues to have severe back pain. The pain is not out of the ordinary for him. The patient's lungs remain clear to auscultation bilaterally. His cardiac exam is regular. I do not appreciate any murmurs, gallops or rubs. The abdomen is soft and flat. Bowel sounds are present. The patient's lower extremities are unremarkable with the exception of severe atrophy of the muscles. At this point today I have not yet examined the patient's wounds. Results Laboratory Results: 01/07/17 04:16 01/07/17 04:16 Assessment & Plan - Diagnosis (1) Sepsis Qualifiers: Sepsis type: sepsis due to unspecified organism Qualified Code(s): A41.9 - Sepsis, unspecified organism Is this a current diagnosis for this admission?: Yes Plan: The patient presented with criteria for sepsis with shock. He came in with severe hypotension and tachycardia. Currently, the patient is receiving vancomycin for C. difficile colitis and doxycycline for his wound. I do not think that the patient's hypotension overnight is related to a secondary infection. I think this is medication effect from the baclofen. Therefore, I have not sent for additional blood cultures. (2) Opioid dependence Is this a current diagnosis for this admission?: Yes Plan: The patient has been started on baclofen as an opiod sparing agent. He was excessively sleepy yesterday. I think that the baclofen led to the hypotension and I have decreased the dose significantly. We will continue long-acting oxycodone and I have written for the patient have morphine for breakthrough pain since he was behind in pain control this morning during the transfer. Patient is also receiving gabapentin. (3) Sacral decubitus ulcer, stage IV Is this a current diagnosis for this admission?: Yes Plan: Continue Santyl dressings. Continue doxycycline for a total of 2 weeks. (4) Urinary tract infection Qualifiers: Urinary tract infection type: catheter-associated UTI Indwelling urinary catheter type: indwelling urethral catheter Encounter type: initial encounter Qualified Code(s): T83.511A - Infection and inflammatory reaction due to indwelling urethral catheter, initial encounter; N39.0 - Urinary tract infection , site not specified; N39.0 - Urinary tract infection, site not specified Is this a current diagnosis for this admission?: Yes Plan: The patient was presumed to have a urinary tract infection on admission. His last culture was negative. He is not currently receiving antibiotics for urinary tract infection. (5) Paraplegia following spinal cord injury Is this a current diagnosis for this admission?: Yes Plan: Continue supportive care. (6) History of Clostridium difficile colitis Is this a current diagnosis for this admission?: Yes Plan: Patient has recurrent C. difficile colitis this hospitalization and is receiving oral vancomycin. (7) Osteomyelitis hip Is this a current diagnosis for this admission?: Yes Plan: Continue to monitor. (8) Severe protein-calorie malnutrition Is this a current diagnosis for this admission?: Yes Plan: Dietary is following. Ensure and Magic cups have been added to meals. (9) Tobacco abuse Is this a current diagnosis for this admission?: Yes Plan: Patient is reluctant to quit smoking. However, this is going to severely impede wound healing particularly since the patient is so malnourished. We should continue attempts to loan counselor the patient to quit smoking. (10) Chronic pain Qualifiers: Chronic pain type: other chronic postprocedural pain Qualified Code(s): G89.28 - Other chronic postprocedural pain Is this a current diagnosis for this admission?: Yes Plan: See the plan above under opioid dependency. (11) C. difficile diarrhea Is this a current diagnosis for this admission?: Yes Plan: Continue oral vancomycin for 14 days. (12) Depression Is this a current diagnosis for this admission?: Yes Plan: Continue Cymbalta (13) Hyponatremia Is this a current diagnosis for this admission?: Yes Plan: Repeat labs today. (14) Iron deficiency anemia Is this a current diagnosis for this admission?: Yes Plan: Patient received Venofer. Continue iron supplementation orally. (15) Vitamin B12 deficiency (dietary) anemia Is this a current diagnosis for this admission?: Yes Plan: Continue supplementation. (16) Sacral decubitus ulcer, stage IV Is this a current diagnosis for this admission?: Yes Plan: Continue doxycycline. Successful healing of this wound is unlikely. - Time Time Spent with patient: 25-34 minutes - Inpatient Certification Medical Necessity: Significant Comorbidiites Make Outpatient Treatment Too Risky , Need Close Monitoring Due to Risk of Patient Decompensation, Risk of Complication if Not Cared For in Hospital
--- NOTE | 2017-01-10 11:43 | Progress Note ---
Provider Note Provider Note: There is a drug interaction with Feosol and doxycycline. Feosol will decrease the absorption of doxycycline. Therefore, iron supplementation will not be started until after the patient completes doxycycline..
[2017-01-10 12:09] LABS: ABSOLUTE BASOPHILS # (AUTO) 0.1 10^3/uL (0.0-0.2); ABSOLUTE MONOCYTES (AUTO) 0.5 10^3/uL (0.1-1.4); ABSOLUTE NEUT (AUTO) 5.9 10^3/uL (1.7-8.2); BASOPHILS % (AUTO) 0.8 % (0-2); EOSINOPHILS % (AUTO) 0.6 % (0-6); HEMOGLOBIN 8.5 g/dL (13.5-17.0); HGB HCT DIFFERENCE -0.5; LYMPHOCYTES % (AUTO) 13.2 % (13-45); MEAN CORPUSCULAR HEMOGLOBIN 26.3 pg (27.0-33.4); MEAN CORPUSCULAR HGB CONC 32.8 g/dL (32.0-36.0); MEAN CORPUSCULAR VOLUME 80 fl (80-97); MONOCYTES % (AUTO) 7.1 % (3-13); RED BLOOD COUNT 3.24 10^6/uL (4.35-5.55); RED CELL DISTRIBUTION WIDTH 18.8 % (11.5-14.0); SEGMENTED NEUTROPHILS % (AUTO) 78.3 % (42-78); WHITE BLOOD COUNT 7.5 10^3/uL (4.0-10.5)
[2017-01-10 12:21] LABS: ANION GAP 10 (5-19); BLOOD UREA NITROGEN 6 mg/dL (7-20); CALCIUM 7.7 mg/dL (8.4-10.2); CARBON DIOXIDE 20 mmol/L (22-30); CHLORIDE 106 mmol/L (98-107); CREATININE RESULT 0.32 mg/dL (0.52-1.25); GLUCOSE 137 mg/dL (75-110); MAGNESIUM 1.5 mg/dL (1.6-2.3); PHOSPHORUS 2.8 mg/dL (2.5-4.5); POTASSIUM 3.6 mmol/L (3.6-5.0); SODIUM 135.5 mmol/L (137-145)
[2017-01-10] MEDS ORDERED: HYDROMORPHONE HCL INJ/PF 2 MG/ML AMPULE ONE (13:07)
[2017-01-10] MEDS: CYANOCOBALAMIN (VITAMIN B-12) 1,000 MCG TABLET PO SCH (13:24)
[2017-01-10] MEDS: MAGNESIUM SULFATE/D5W 1 GM/100 ML RTUPB IV SCH ×3 (14:19→17:32)
[2017-01-10] MEDS ORDERED: POTASSIUM CHLORIDE 10 MEQ TABLET.SA PO ONE (14:30)
[2017-01-10] MEDS: HYDROMORPHONE HCL INJ/PF 2 MG/ML AMPULE IV PRN ×2 (17:31→21:39)
[2017-01-10] MEDS: ZOLPIDEM TARTRATE 5 MG TABLET PO PRN (21:39)
[2017-01-11] MEDS: VANCOMYCIN HCL INJ 500 MG VIAL PO SCH ×4 (01:11→17:53)
[2017-01-11] MEDS: HYDROMORPHONE HCL INJ/PF 2 MG/ML AMPULE IV PRN ×5 (04:42→22:07)
[2017-01-11] MEDS: NORMAL SALINE 1000 ML 1,000 ML IV PRN ×2 (05:30→19:45)
[2017-01-11] MEDS: GABAPENTIN 400 MG CAPSULE PO SCH ×3 (06:12→22:04)
[2017-01-11] MEDS ORDERED: MAGNESIUM OXIDE 400 MG TABLET PO ONE (07:45)
[2017-01-11] MEDS: LACTOBACILLUS ACIDOPHILUS 250 MG TAB PO SCH ×2 (09:45→17:52)
[2017-01-11] MEDS: OXYCODONE HCL SR 10 MG TABLET PO SCH ×2 (09:46→22:04)
[2017-01-11] MEDS: FAMOTIDINE 20 MG TABLET PO SCH ×2 (09:46→22:05)
[2017-01-11] MEDS: SODIUM CHLORIDE 1 GM TABLET PO SCH ×3 (09:46→17:52)
[2017-01-11] MEDS: DULOXETINE HCL 20 MG CAPSULE.DR PO SCH (09:46)
[2017-01-11] MEDS: MEGESTROL ACETATE SUSP 400 MG/10 ML UDCUP PO SCH (09:47)
[2017-01-11] MEDS: COLLAGENASE CLOSTRIDIUM HIST. OINT 30 GM TOP SCH (09:47)
[2017-01-11] MEDS: BACLOFEN 10 MG TABLET PO SCH ×2 (09:49→17:53)
[2017-01-11] MEDS: CYANOCOBALAMIN (VITAMIN B-12) 1,000 MCG TABLET PO SCH (13:43)
--- NOTE | 2017-01-11 14:52 | PDOC PROGRESS REPORT ---
Subjective Progress Note for:: 01/11/17 Subjective:: The patient has been admitted with severe sepsis secondary to a massive decubitus ulcer. His hospital course has been complicated by the development of C. difficile colitis, severe depression, iron deficiency anemia, opioid dependency, B12 deficiency and severe protein calorie malnutrition. On 01/10/17 the patient was transferred to the intensive care unit for severe hypotension. His blood pressure did respond to resuscitation with intravenous normal saline. However, currently, he is on a low-dose Levophed drip. The low blood pressure could in part be secondary to a recent increase in the patient's dose of baclofen. During this episode the patient remained awake and conversant with normal cognition. At baseline, his systolic blood pressures appear to be in the low 90s. Physical Exam Vital Signs: Temp Pulse Resp BP Pulse Ox 97.3 F 69 21 H 100/49 L 99 01/11/17 12:00 01/11/17 10:00 01/11/17 13:15 01/11/17 13:08 01/11/17 11:15 Intake & Output 01/10/17 01/11/17 01/12/17 06:59 06:59 06:59 Intake Total 5712 3315 550 Output Total 1695 3915 1325 Balance 4017 600 775 Weight 55.3 kg Additional comments: The patient is wide awake today. He is conversant. His mentation is appropriate. His facial appearance is unremarkable except for dental caries. His lungs are clear to auscultation bilaterally. His cardiac exam is regular without murmurs gallops rubs. The abdomen is soft and flat. The ostomy site looks pink. The lower abdomen and pelvic area has evidence of Neha. The lower extremities are significant for muscle atrophy, a small lesion is on the right knee. This appears to be a small pressure ulcer. I did examine the patient's wounds last night. He has a large decubitus ulcer on the left hip and on the sacrum. These do appear largely improved from admission, however, they are severe and deep. Results Laboratory Results: 01/10/17 11:50 01/10/17 11:50 Assessment & Plan - Diagnosis (1) Sepsis Qualifiers: Sepsis type: sepsis due to unspecified organism Qualified Code(s): A41.9 - Sepsis, unspecified organism Is this a current diagnosis for this admission?: Yes Plan: The patient presented with criteria for sepsis with shock. He came in with severe hypotension and tachycardia. Currently, the patient is receiving vancomycin for C. difficile colitis and doxycycline for his wound. I do not think that the patient's hypotension 01/10/17 is related to a secondary infection. I think this is medication effect from the baclofen. Therefore, I have not sent for additional blood cultures. (2) Opioid dependence Is this a current diagnosis for this admission?: Yes Plan: The patient has been started on baclofen as an opiod sparing agent. He was excessively sleepy after baclofen was increased. I think that the baclofen led to the hypotension and I have decreased the dose significantly. We will continue long-acting oxycodone. Patient is also receiving gabapentin. Has intravenous orders for morphine and Dilaudid. On 01/10/2017 I added morphine for breakthrough pain. However, this was ineffective and the patient required Dilaudid. I am trying to wean him off of the Dilaudid. (3) Sacral decubitus ulcer, stage IV Is this a current diagnosis for this admission?: Yes Plan: Continue Santyl dressings. Continue doxycycline for a total of 2 weeks. (4) Urinary tract infection Qualifiers: Urinary tract infection type: catheter-associated UTI Indwelling urinary catheter type: indwelling urethral catheter Encounter type: initial encounter Qualified Code(s): T83.511A - Infection and inflammatory reaction due to indwelling urethral catheter, initial encounter; N39.0 - Urinary tract infection , site not specified; N39.0 - Urinary tract infection, site not specified Is this a current diagnosis for this admission?: Yes Plan: The patient was presumed to have a urinary tract infection on admission. His last culture was negative. He is not currently receiving antibiotics for urinary tract infection. (5) Paraplegia following spinal cord injury Is this a current diagnosis for this admission?: Yes Plan: Continue supportive care. (6) History of Clostridium difficile colitis Is this a current diagnosis for this admission?: Yes Plan: Patient has recurrent C. difficile colitis this hospitalization and is receiving oral vancomycin. (7) Osteomyelitis hip Is this a current diagnosis for this admission?: Yes Plan: Continue to monitor. (8) Severe protein-calorie malnutrition Is this a current diagnosis for this admission?: Yes Plan: Dietary is following. Ensure and Magic cups have been added to meals. (9) Tobacco abuse Is this a current diagnosis for this admission?: Yes Plan: Patient is reluctant to quit smoking. However, this is going to severely impede wound healing particularly since the patient is so malnourished. We should continue attempts to residence counselor the patient to quit smoking. (10) Chronic pain Qualifiers: Chronic pain type: other chronic postprocedural pain Qualified Code(s): G89.28 - Other chronic postprocedural pain Is this a current diagnosis for this admission?: Yes Plan: See the plan above under opioid dependency. (11) C. difficile diarrhea Is this a current diagnosis for this admission?: Yes Plan: Continue oral vancomycin for 14 days. (12) Depression Is this a current diagnosis for this admission?: Yes Plan: Continue Cymbalta - depression could be in large part due to chronic opiod use. (13) Hyponatremia Is this a current diagnosis for this admission?: Yes Plan: Improved 01/10/17. Will repeat labs tomorrow. (14) Iron deficiency anemia Is this a current diagnosis for this admission?: Yes Plan: Patient received Venofer. he is not currently receiving oral iron therapy due to the drug interaction with doxycycline. Oral iron supplementation should be started when the patient completes his course of doxycycline. (15) Vitamin B12 deficiency (dietary) anemia Is this a current diagnosis for this admission?: Yes Plan: Continue supplementation. (16) Sacral decubitus ulcer, stage IV Is this a current diagnosis for this admission?: Yes Plan: Continue doxycycline. Successful healing of this wound may be unlikely. - Time Time Spent with patient: 25-34 minutes - Inpatient Certification Medical Necessity: Significant Comorbidiites Make Outpatient Treatment Too Risky , Need Close Monitoring Due to Risk of Patient Decompensation, Risk of Complication if Not Cared For in Hospital
[2017-01-11] MEDS ORDERED: NYSTATIN TOPICAL POWDER 15 GM TP ONE (16:00)
[2017-01-11] MEDS: MAGNESIUM OXIDE 400 MG TABLET PO SCH (17:52)
[2017-01-11] MEDS: MORPHINE SULFATE 10 MG/ML INJ IV PRN (19:44)
[2017-01-11] MEDS: ZOLPIDEM TARTRATE 5 MG TABLET PO PRN (22:05)
[2017-01-11] MEDS: NYSTATIN TOPICAL POWDER 15 GM TP SCH (22:06)
[2017-01-12] MEDS: MORPHINE SULFATE 10 MG/ML INJ IV PRN (01:02)
[2017-01-12] MEDS: VANCOMYCIN HCL INJ 500 MG VIAL PO SCH ×4 (01:03→17:23)
[2017-01-12] MEDS: HYDROMORPHONE HCL INJ/PF 2 MG/ML AMPULE IV PRN ×3 (04:13→13:31)
[2017-01-12] MEDS: GABAPENTIN 400 MG CAPSULE PO SCH ×3 (05:47→21:10)
[2017-01-12] MEDS ORDERED: ALTEPLASE INJ 2 MG VIAL (CATH CLEARANCE) IV ONE (09:00)
[2017-01-12] MEDS: LACTOBACILLUS ACIDOPHILUS 250 MG TAB PO SCH ×2 (09:23→17:21)
[2017-01-12] MEDS: BACLOFEN 10 MG TABLET PO SCH ×2 (09:24→17:22)
[2017-01-12] MEDS: DULOXETINE HCL 20 MG CAPSULE.DR PO SCH (09:25)
[2017-01-12] MEDS: MAGNESIUM OXIDE 400 MG TABLET PO SCH ×2 (09:25→17:20)
[2017-01-12] MEDS: DOXYCYCLINE HYCLATE 100 MG TABLET PO SCH ×2 (09:26→21:11)
[2017-01-12] MEDS: SODIUM CHLORIDE 1 GM TABLET PO SCH ×3 (09:26→17:21)
[2017-01-12] MEDS: FAMOTIDINE 20 MG TABLET PO SCH ×2 (09:26→21:10)
[2017-01-12] MEDS: MEGESTROL ACETATE SUSP 400 MG/10 ML UDCUP PO SCH (09:27)
[2017-01-12] MEDS: COLLAGENASE CLOSTRIDIUM HIST. OINT 30 GM TOP SCH (09:28)
[2017-01-12] MEDS: NYSTATIN TOPICAL POWDER 15 GM TP SCH (09:29)
[2017-01-12 09:40] LABS: ABSOLUTE BASOPHILS # (AUTO) 0.1 10^3/uL (0.0-0.2); ABSOLUTE EOSINOPHILS # (AUTO) 0.1 10^3/uL (0.0-0.6); ABSOLUTE LYMPHOCYTES (AUTO) 1.5 10^3/uL (0.5-4.7); ABSOLUTE MONOCYTES (AUTO) 0.8 10^3/uL (0.1-1.4); ABSOLUTE NEUT (AUTO) 3.8 10^3/uL (1.7-8.2); EOSINOPHILS % (AUTO) 1.5 % (0-6); HEMATOCRIT 25.7 % (37.9-51.0); HEMOGLOBIN 8.5 g/dL (13.5-17.0); HGB HCT DIFFERENCE -0.2; LYMPHOCYTES % (AUTO) 24.1 % (13-45); MEAN CORPUSCULAR VOLUME 79 fl (80-97); MONOCYTES % (AUTO) 13.2 % (3-13); RED BLOOD COUNT 3.27 10^6/uL (4.35-5.55); RED CELL DISTRIBUTION WIDTH 18.8 % (11.5-14.0); SEGMENTED NEUTROPHILS % (AUTO) 60.2 % (42-78); WHITE BLOOD COUNT 6.3 10^3/uL (4.0-10.5)
[2017-01-12] MEDS: OXYCODONE HCL SR 10 MG TABLET PO SCH ×2 (09:58→21:11)
[2017-01-12 10:00] LABS: ANION GAP 8 (5-19); BLOOD UREA NITROGEN 6 mg/dL (7-20); CARBON DIOXIDE 24 mmol/L (22-30); CHLORIDE 102 mmol/L (98-107); CREATININE RESULT 0.32 mg/dL (0.52-1.25); GLUCOSE 87 mg/dL (75-110); MAGNESIUM 1.8 mg/dL (1.6-2.3); POTASSIUM 4.3 mmol/L (3.6-5.0); SODIUM 133.5 mmol/L (137-145)
[2017-01-12] MEDS ORDERED: OXYCODONE HCL SR 10 MG TABLET PO SCH (10:00)
[2017-01-12] MEDS: CYANOCOBALAMIN (VITAMIN B-12) 1,000 MCG TABLET PO SCH (13:29)
--- NOTE | 2017-01-12 16:38 | PDOC PROGRESS REPORT ---
Subjective Progress Note for:: 01/12/17 Subjective:: Patient is seen on rounds. He is resting comfortably in bed. IV Levophed is being weaned off overnight. His blood pressure is stable. Denies any shortness of breath, dyspnea or chest pain. Denies any nausea, vomiting or abdominal pain. He has had no further liquid stools in his ostomy. He continues to complain of pain in his sacral area and back. He has been receiving IV Dilaudid actually every 4 hours most likely contributing to his hypotension. He also takes OxyContin every 12. Remaining review of systems is negative Reason For Visit: SEPSIS Physical Exam Vital Signs: Temp Pulse Resp BP Pulse Ox 97.8 F 80 16 95/48 L 99 01/12/17 12:00 01/12/17 12:00 01/12/17 15:30 01/12/17 14:08 01/12/17 15:30 Intake & Output 01/11/17 01/12/17 01/13/17 06:59 06:59 06:59 Intake Total 3315 2388 809 Output Total 3915 6625 2009 Balance -600 -2553 -1201 Weight 56.9 kg General appearance: PRESENT: no acute distress, thin, well-developed, well- nourished Head exam: PRESENT: atraumatic, normocephalic Eye exam: PRESENT: conjunctiva pink, EOMI, PERRLA. ABSENT: scleral icterus Ear exam: PRESENT: normal external ear exam Mouth exam: PRESENT: moist, tongue midline Neck exam: ABSENT: carotid bruit, JVD, lymphadenopathy, thyromegaly Respiratory exam: PRESENT: clear to auscultation maury. ABSENT: rales, rhonchi, wheezes Cardiovascular exam: PRESENT: RRR. ABSENT: diastolic murmur, rubs, systolic murmur Pulses: PRESENT: normal dorsalis pedis pul Vascular exam: PRESENT: normal capillary refill GI/Abdominal exam: PRESENT: normal bowel sounds, soft. ABSENT: distended, guarding, mass, organolmegaly, rebound, tenderness Rectal exam: PRESENT: deferred Extremities exam: PRESENT: tenderness Musculoskeletal exam: PRESENT: tenderness, other - lower lumbar area, history of paraplegia Neurological exam: PRESENT: alert, awake, oriented to person, oriented to place , oriented to time, oriented to situation, CN II-XII grossly intact. ABSENT: motor sensory deficit Psychiatric exam: PRESENT: appropriate affect, normal mood. ABSENT: homicidal ideation, suicidal ideation Skin exam: PRESENT: dry, intact, warm, other - sacral wound covered with dry sterile dressing. ABSENT: cyanosis, rash Results Laboratory Results: 01/12/17 09:05 01/12/17 09:05 01/12/17 01/12/17 09:05 09:05 WBC 6.3 RBC 3.27 L Hgb 8.5 L Hct 25.7 L MCV 79 L MCH 26.0 L MCHC 33.0 RDW 18.8 H Plt Count 282 Seg Neutrophils % 60.2 Lymphocytes % 24.1 Monocytes % 13.2 H Eosinophils % 1.5 Basophils % 1.0 Absolute Neutrophils 3.8 Absolute Lymphocytes 1.5 Absolute Monocytes 0.8 Absolute Eosinophils 0.1 Absolute Basophils 0.1 Sodium 133.5 L Potassium 4.3 Chloride 102 Carbon Dioxide 24 Anion Gap 8 BUN 6 L Creatinine 0.32 L Est GFR ( Amer) > 60 Est GFR (Non-Af Amer) > 60 Glucose 87 Calcium 8.0 L Magnesium 1.8 Assessment & Plan - Diagnosis (1) C. difficile diarrhea Is this a current diagnosis for this admission?: Yes Plan: Stool is now formed. Will complete 10 day course of vancomycin therapy (2) Sepsis Qualifiers: Sepsis type: sepsis due to unspecified organism Qualified Code(s): A41.9 - Sepsis, unspecified organism Is this a current diagnosis for this admission?: Yes Plan: Patient is no longer tachycardic or hypotensive. Leukocytosis has resolved. He has been afebrile. Complete treatment for C. difficile diarrhea (3) Anemia Qualifiers: Anemia type: unspecified type Qualified Code(s): D64.9 - Anemia, unspecified Is this a current diagnosis for this admission?: Yes (4) Chronic pain Qualifiers: Chronic pain type: chronic pain syndrome Qualified Code(s): G89.4 - Chronic pain syndrome Is this a current diagnosis for this admission?: Yes Plan: We will discontinue IV Dilaudid and morphine. Patient will have OxyLite IR 5 mg every 6 hours as needed for breakthrough pain. (5) DVT prophylaxis Is this a current diagnosis for this admission?: Yes Plan: Lovenox (6) Depression Qualifiers: Depression Type: dysthymia Qualified Code(s): F34.1 - Dysthymic disorder Is this a current diagnosis for this admission?: Yes Plan: Continue SSRI (7) Hypokalemia Is this a current diagnosis for this admission?: Yes Plan: Replete as needed (8) Hyponatremia Is this a current diagnosis for this admission?: Yes Plan: Secondary to dehydration resolved (9) Opioid dependence Is this a current diagnosis for this admission?: Yes (10) Sacral decubitus ulcer, stage IV Is this a current diagnosis for this admission?: Yes Plan: Continue follow-up with wound care - Time Time Spent with patient: 25-34 minutes Critical Time spent with patient: 15-24 minutes Medications reviewed and adjusted accordingly: Yes Anticipated discharge: Home with Homehealth
[2017-01-12] MEDS: FERROUS SULFATE 325 MG TABLET PO SCH (17:20)
[2017-01-12] MEDS: OXYCODONE HCL IR 5 MG TABLET PO PRN (17:20)
[2017-01-12] MEDS ORDERED: FERROUS SULFATE 325 MG TABLET PO SCH (18:00)
[2017-01-13] MEDS: NYSTATIN TOPICAL POWDER 15 GM TP SCH ×3 (00:26→21:18)
[2017-01-13] MEDS: VANCOMYCIN HCL INJ 500 MG VIAL PO SCH ×3 (00:26→12:00)
[2017-01-13] MEDS: OXYCODONE HCL IR 5 MG TABLET PO PRN ×5 (03:34→22:20)
[2017-01-13] MEDS: GABAPENTIN 400 MG CAPSULE PO SCH ×3 (06:54→21:18)
[2017-01-13] MEDS: MAGNESIUM OXIDE 400 MG TABLET PO SCH ×2 (06:54→18:02)
[2017-01-13] MEDS: OXYCODONE HCL SR 10 MG TABLET PO SCH ×2 (09:30→21:18)
[2017-01-13] MEDS: MEGESTROL ACETATE SUSP 400 MG/10 ML UDCUP PO SCH (09:30)
[2017-01-13] MEDS: SODIUM CHLORIDE 1 GM TABLET PO SCH ×3 (09:30→18:01)
[2017-01-13] MEDS: DULOXETINE HCL 20 MG CAPSULE.DR PO SCH (09:31)
[2017-01-13] MEDS: BACLOFEN 10 MG TABLET PO SCH ×2 (09:32→18:01)
[2017-01-13] MEDS: LACTOBACILLUS ACIDOPHILUS 250 MG TAB PO SCH ×2 (09:32→18:01)
[2017-01-13] MEDS: FAMOTIDINE 20 MG TABLET PO SCH ×2 (09:39→21:18)
--- NOTE | 2017-01-13 10:14 | PDOC PROGRESS REPORT ---
Subjective Progress Note for:: 01/13/17 Subjective:: Patient with history of chronic pain presenting with sepsis due to his chronic decubitis ulcer. Patient states his neck is sore with the IV in his left IJ. He is complaining of pain. He is still eating well. Reason For Visit: SEPSIS Physical Exam Vital Signs: Temp Pulse Resp BP Pulse Ox 98.8 F 93 17 107/56 L 96 01/13/17 03:32 01/13/17 03:32 01/13/17 03:32 01/13/17 03:32 01/13/17 03:32 Intake & Output 01/12/17 01/13/17 01/14/17 06:59 06:59 06:59 Intake Total 2383 2063 Output Total 2105 4554 Balance -2086 -2566 Weight 56.9 kg 56.7 kg General appearance: PRESENT: mild distress, thin Head exam: PRESENT: normocephalic Eye exam: PRESENT: EOMI. ABSENT: scleral icterus Mouth exam: PRESENT: moist Neck exam: ABSENT: carotid bruit, JVD, lymphadenopathy, thyromegaly Respiratory exam: PRESENT: clear to auscultation maury, decreased breath sounds. ABSENT: rales, rhonchi, wheezes Cardiovascular exam: PRESENT: RRR. ABSENT: diastolic murmur, rubs, systolic murmur GI/Abdominal exam: PRESENT: normal bowel sounds, soft, other - colostomy in place. ABSENT: distended, guarding, mass, organolmegaly, rebound, tenderness Rectal exam: PRESENT: deferred Gentrourinary exam: PRESENT: indwelling catheter Extremities exam: PRESENT: other - contracted. ABSENT: calf tenderness, clubbing, pedal edema Neurological exam: PRESENT: alert, awake, oriented to person, oriented to place , oriented to time, oriented to situation, CN II-XII grossly intact. ABSENT: motor sensory deficit Psychiatric exam: PRESENT: appropriate affect, normal mood. ABSENT: homicidal ideation, suicidal ideation Skin exam: PRESENT: dry, intact, warm, other - dressing on left hip. ABSENT: cyanosis, rash Results Laboratory Results: 01/12/17 09:05 01/12/17 09:05 01/12/17 09:05 Sodium 133.5 L Potassium 4.3 Chloride 102 Carbon Dioxide 24 Anion Gap 8 BUN 6 L Creatinine 0.32 L Est GFR ( Amer) > 60 Est GFR (Non-Af Amer) > 60 Glucose 87 Calcium 8.0 L Magnesium 1.8 Assessment & Plan - Diagnosis (1) C. difficile diarrhea Is this a current diagnosis for this admission?: Yes Plan: Continue oral vancomycin to complete 14 days of treatment. Patient still in isolation. Need to determine what day of treatment this is. (2) Depression Qualifiers: Depression Type: dysthymia Qualified Code(s): F34.1 - Dysthymic disorder Is this a current diagnosis for this admission?: Yes Plan: Continue cymbalta. (3) Hypokalemia Is this a current diagnosis for this admission?: Yes Plan: Resolved. (4) Iron deficiency anemia Is this a current diagnosis for this admission?: Yes Plan: Patient given venofer during this admission. Patient currently on po ferrous sulfate. (5) Opioid dependence Is this a current diagnosis for this admission?: Yes Plan: Patient continue on his home medications. Continue Cymbalta, gabapentin, and baclofen as opiate sparing medications. (6) Sacral decubitus ulcer, stage IV Is this a current diagnosis for this admission?: Yes Plan: Patient currently on doxyclycine and and receiving local wound care. Patient should complete 2 weeks of antibiotics. Will need to determine which day of treatment this is. (7) Sepsis Qualifiers: Sepsis type: sepsis due to unspecified organism Qualified Code(s): A41.9 - Sepsis, unspecified organism Is this a current diagnosis for this admission?: Yes Plan: Due to sacral wound. Patient clinically improved. Will continue treatment with doxycycline and local wound care. Patient is currently hypotensive patient this may be his baseline due to his spinal cord injury. (8) Urinary tract infection Qualifiers: Urinary tract infection type: catheter-associated UTI Indwelling urinary catheter type: indwelling urethral catheter Encounter type: initial encounter Qualified Code(s): T83.511A - Infection and inflammatory reaction due to indwelling urethral catheter, initial encounter; N39.0 - Urinary tract infection , site not specified; N39.0 - Urinary tract infection, site not specified Is this a current diagnosis for this admission?: Yes Plan: Patient urine is not growing any bacteria at this time. He currently does not have a UTI. (9) Vitamin B12 deficiency (dietary) anemia Is this a current diagnosis for this admission?: Yes Plan: Continue oral B12. (10) Paraplegia following spinal cord injury Is this a current diagnosis for this admission?: Yes Plan: Continue with supportive care. Patient is considering retirement placement. Referrals are being sent to other locations. (11) Encephalopathy Is this a current diagnosis for this admission?: Yes Plan: Due to infection, now resolved. (12) Hyponatremia Plan: Patient continues to have mild hyponatremia. Possible SIADH due to medication. (13) Severe protein-calorie malnutrition Is this a current diagnosis for this admission?: Yes Plan: Continue dietary supplement. Continue megace. Patient is eating better. (14) Chronic pain Qualifiers: Chronic pain type: other chronic postprocedural pain Qualified Code(s): G89.28 - Other chronic postprocedural pain Is this a current diagnosis for this admission?: Yes Plan: Continue current medications. Continue with the gabapentin 800 3 times daily, Cymbalta 20, baclofen decreased to 5mg bid. Patient is also using opiates. Explained to patient the goal is to decrease that amount of opiates being used to manage his pain. (15) DVT prophylaxis Is this a current diagnosis for this admission?: Yes Plan: Continue Lovenox. - Time Time Spent with patient: Less than 15 minutes Anticipated discharge: SNF - Inpatient Certification Medical Necessity: Need for Pain Control - Patient awaiting placement.
[2017-01-13] MEDS: DOXYCYCLINE HYCLATE 100 MG TABLET PO SCH ×2 (13:20→22:20)
[2017-01-13] MEDS: CYANOCOBALAMIN (VITAMIN B-12) 1,000 MCG TABLET PO SCH (13:21)
[2017-01-13] MEDS: COLLAGENASE CLOSTRIDIUM HIST. OINT 30 GM TOP SCH (16:00)
[2017-01-13] MEDS: FERROUS SULFATE 325 MG TABLET PO SCH (18:02)
[2017-01-14] MEDS: OXYCODONE HCL IR 5 MG TABLET PO PRN ×4 (02:35→16:58)
[2017-01-14] MEDS: GABAPENTIN 400 MG CAPSULE PO SCH ×3 (06:16→22:10)
[2017-01-14] MEDS: MAGNESIUM OXIDE 400 MG TABLET PO SCH ×2 (06:16→17:06)
[2017-01-14] MEDS: DOXYCYCLINE HYCLATE 100 MG TABLET PO SCH ×2 (09:50→22:10)
[2017-01-14] MEDS: MEGESTROL ACETATE SUSP 400 MG/10 ML UDCUP PO SCH (09:50)
[2017-01-14] MEDS: FLUDROCORTISONE ACETATE 0.1 MG TABLET PO SCH (09:50)
[2017-01-14] MEDS: BACLOFEN 10 MG TABLET PO SCH ×2 (09:51→17:06)
[2017-01-14] MEDS: SODIUM CHLORIDE 1 GM TABLET PO SCH ×3 (09:51→17:08)
[2017-01-14] MEDS: FAMOTIDINE 20 MG TABLET PO SCH ×2 (09:51→22:10)
[2017-01-14] MEDS: OXYCODONE HCL SR 10 MG TABLET PO SCH ×2 (09:52→22:02)
[2017-01-14] MEDS: LACTOBACILLUS ACIDOPHILUS 250 MG TAB PO SCH ×2 (09:52→17:07)
[2017-01-14] MEDS: COLLAGENASE CLOSTRIDIUM HIST. OINT 30 GM TOP SCH (09:54)
[2017-01-14] MEDS: DULOXETINE HCL 20 MG CAPSULE.DR PO SCH (10:58)
[2017-01-14] MEDS: NYSTATIN TOPICAL POWDER 15 GM TP SCH ×2 (10:58→22:11)
[2017-01-14] MEDS: CYANOCOBALAMIN (VITAMIN B-12) 1,000 MCG TABLET PO SCH (17:03)
[2017-01-14] MEDS: FERROUS SULFATE 325 MG TABLET PO SCH (17:06)
[2017-01-14] MEDS: ACETAMINOPHEN 325 MG TABLET PO PRN (19:55)
[2017-01-14] MEDS ORDERED: NORMAL SALINE 1000 ML 1,000 ML IV ONE ×2 (21:00→23:45)
--- NOTE | 2017-01-14 22:14 | RADIOLOGY REPORT (SQ) ---
EXAM DESCRIPTION: CHEST SINGLE VIEW COMPLETED DATE/TIME: 01/14/2017 9:22 pm REASON FOR STUDY: TACHACARDIA,SEPSIS POSSIBLE COMPARISON: 01/10/2017 EXAM PARAMETERS: NUMBER OF VIEWS: One view. TECHNIQUE: Single frontal radiographic view of the chest acquired. RADIATION DOSE: NA LIMITATIONS: None. FINDINGS: LUNGS AND PLEURA: No acute opacities, masses or pneumothorax. No pleural effusion. MEDIASTINUM AND HILAR STRUCTURES: No masses. Contour normal. HEART AND VASCULAR STRUCTURES: Heart normal in size. Normal vasculature. BONES: No acute findings. HARDWARE: Stable left IJ central venous catheter. OTHER: No other significant finding. IMPRESSION: NO ACUTE RADIOGRAPHIC FINDING IN THE CHEST. TECHNICAL DOCUMENTATION: JOB ID: [id number] [employer]- All Rights Reserved
[2017-01-14 22:32] LABS: APPEARANCE,URINE SLIGHTLY-CLOUDY; BILIRUBIN,URINE NEGATIVE (NEGATIVE); GLUCOSE, URINE NEGATIVE (NEGATIVE); KETONES,URINE NEGATIVE (NEGATIVE); LEUKOCYTE ESTERASE,URINE TRACE (NEGATIVE); NITRITE,URINE NEGATIVE (NEGATIVE); PROTEIN,URINE NEGATIVE (NEGATIVE); URINE SPECIFIC GRAVITY 1.013; UROBILINOGEN,URINE NEGATIVE mg/dL (<2.0)
[2017-01-15] MEDS: OXYCODONE HCL IR 5 MG TABLET PO PRN ×4 (04:16→15:48)
[2017-01-15] MEDS: MAGNESIUM OXIDE 400 MG TABLET PO SCH (05:39)
[2017-01-15] MEDS: GABAPENTIN 400 MG CAPSULE PO SCH ×2 (05:39→15:04)
--- NOTE | 2017-01-15 07:31 | PDOC PROGRESS REPORT ---
Subjective Progress Note for:: 01/14/17 Subjective:: Patient with history of chronic pain presenting with sepsis due to his chronic decubitis ulcer. Patient continues to complain of pain. Reason For Visit: SEPSIS Physical Exam Vital Signs: Temp Pulse Resp BP Pulse Ox 98.0 F 91 15 109/37 L 99 01/14/17 16:16 01/14/17 16:16 01/14/17 03:40 01/14/17 16:16 01/14/17 16:16 Intake & Output 01/13/17 01/14/17 01/15/17 06:59 06:59 06:59 Intake Total 2063 4332 1066 Output Total 4630 2675 Balance -2567 1657 1066 Weight 56.7 kg 61.3 kg General appearance: PRESENT: no acute distress, thin Head exam: PRESENT: normocephalic, other - bitemporal wasting Eye exam: PRESENT: EOMI. ABSENT: scleral icterus Mouth exam: PRESENT: moist Neck exam: ABSENT: carotid bruit, JVD, lymphadenopathy, thyromegaly Respiratory exam: PRESENT: clear to auscultation maury. ABSENT: rales, rhonchi, wheezes Cardiovascular exam: PRESENT: RRR. ABSENT: diastolic murmur, rubs, systolic murmur Pulses: PRESENT: normal dorsalis pedis pul Vascular exam: PRESENT: normal capillary refill GI/Abdominal exam: PRESENT: normal bowel sounds, soft, other - colostomy in place. ABSENT: distended, guarding, mass, organolmegaly, rebound, tenderness Rectal exam: PRESENT: deferred Extremities exam: PRESENT: full ROM. ABSENT: calf tenderness, clubbing, pedal edema Musculoskeletal exam: PRESENT: other - contracted Neurological exam: PRESENT: alert, awake, oriented to person, oriented to place , oriented to time, oriented to situation, CN II-XII grossly intact. ABSENT: motor sensory deficit Psychiatric exam: PRESENT: appropriate affect, normal mood, other - paraplegic. ABSENT: homicidal ideation, suicidal ideation Skin exam: PRESENT: dry, intact, warm, other - large decub ulcer on left hip. ABSENT: cyanosis, rash Results Laboratory Results: 01/12/17 09:05 01/12/17 09:05 Assessment & Plan - Diagnosis (1) C. difficile diarrhea Is this a current diagnosis for this admission?: Yes Plan: Continue oral vancomycin. Patient completed treatment. (2) Depression Qualifiers: Depression Type: dysthymia Qualified Code(s): F34.1 - Dysthymic disorder Is this a current diagnosis for this admission?: Yes Plan: Continue cymbalta. (3) Hypokalemia Is this a current diagnosis for this admission?: Yes Plan: Resolved. (4) Iron deficiency anemia Is this a current diagnosis for this admission?: Yes Plan: Patient given venofer during this admission. Patient currently on po ferrous sulfate. (5) Opioid dependence Is this a current diagnosis for this admission?: Yes Plan: Patient continue on his home medications. Continue Cymbalta, gabapentin, and baclofen as opiate sparing medications. (6) Sacral decubitus ulcer, stage IV Is this a current diagnosis for this admission?: Yes Plan: Patient currently on doxyclycine and and receiving local wound care. Patient should complete 2 weeks of antibiotics. (7) Sepsis Qualifiers: Sepsis type: sepsis due to unspecified organism Qualified Code(s): A41.9 - Sepsis, unspecified organism Is this a current diagnosis for this admission?: Yes Plan: Due to sacral wound. Patient clinically improved. Will continue treatment with doxycycline and local wound care. Patient is currently hypotensive patient this may be his baseline due to his spinal cord injury. (8) Urinary tract infection Qualifiers: Urinary tract infection type: catheter-associated UTI Indwelling urinary catheter type: indwelling urethral catheter Encounter type: initial encounter Qualified Code(s): T83.511A - Infection and inflammatory reaction due to indwelling urethral catheter, initial encounter; N39.0 - Urinary tract infection , site not specified; N39.0 - Urinary tract infection, site not specified Is this a current diagnosis for this admission?: Yes Plan: Patient urine is not growing any bacteria at this time. He currently does not have a UTI. (9) Vitamin B12 deficiency (dietary) anemia Is this a current diagnosis for this admission?: Yes Plan: Continue oral B12. (10) Paraplegia following spinal cord injury Is this a current diagnosis for this admission?: Yes Plan: Continue with supportive care. Patient is considering [facility] placement. Referrals are being sent to other locations. (11) Encephalopathy Is this a current diagnosis for this admission?: Yes Plan: Due to infection, now resolved. (12) Hyponatremia Plan: Patient continues to have mild hyponatremia. Possible SIADH due to medication. (13) Severe protein-calorie malnutrition Is this a current diagnosis for this admission?: Yes Plan: Continue dietary supplement. Continue megace. Patient eating up to 100% of his meals. (14) Chronic pain Qualifiers: Chronic pain type: other chronic postprocedural pain Qualified Code(s): G89.28 - Other chronic postprocedural pain Is this a current diagnosis for this admission?: Yes Plan: Continue current medications. Continue with the gabapentin 800 3 times daily, Cymbalta 20, baclofen decreased to 5mg bid. Patient is also using opiates. Explained to patient the goal is to decrease that amount of opiates being used to manage his pain however patient continues to as for pain medication. He does appears comfortable despite complaining of pain. Will not make anymore adjustments on his pain medications. (15) DVT prophylaxis Is this a current diagnosis for this admission?: Yes Plan: Continue Lovenox. - Time Time Spent with patient: Less than 15 minutes Anticipated discharge: SNF Within: when bed available
[2017-01-15] MEDS: BACLOFEN 10 MG TABLET PO SCH (09:51)
[2017-01-15] MEDS: DULOXETINE HCL 20 MG CAPSULE.DR PO SCH (09:52)
[2017-01-15] MEDS: OXYCODONE HCL SR 10 MG TABLET PO SCH (09:53)
[2017-01-15] MEDS: FLUDROCORTISONE ACETATE 0.1 MG TABLET PO SCH (09:53)
[2017-01-15] MEDS: NYSTATIN TOPICAL POWDER 15 GM TP SCH (09:54)
[2017-01-15] MEDS: COLLAGENASE CLOSTRIDIUM HIST. OINT 30 GM TOP SCH (09:54)
[2017-01-15] MEDS: SODIUM CHLORIDE 1 GM TABLET PO SCH ×2 (09:54→15:04)
[2017-01-15] MEDS: LACTOBACILLUS ACIDOPHILUS 250 MG TAB PO SCH (09:54)
[2017-01-15] MEDS: MEGESTROL ACETATE SUSP 400 MG/10 ML UDCUP PO SCH (09:54)
[2017-01-15] MEDS: FAMOTIDINE 20 MG TABLET PO SCH (10:01)
[2017-01-15] MEDS: DOXYCYCLINE HYCLATE 100 MG TABLET PO SCH (12:08)
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
[2017-01-15] MEDS: CYANOCOBALAMIN (VITAMIN B-12) 1,000 MCG TABLET PO SCH (15:05)
[2017-01-15 17:05] VITALS: BP 94/51
== END 2017-01-15 17:40 | DRG 871 ==
LOC: ER 10:45 → EH 14:21 → 3N 17:36 → 3W 12-30 11:43 → ICU 01-10 06:06 → 4N 01-12 19:23
PROVIDERS: ADMIT Internal Medicine; ATTEND Internal Medicine
PROC: 30233N1 Transfusion of Nonautologous Red Blood Cells into Peripheral Vein, Percutaneous Approach (ICD-10-PCS; 2017-01-03)
PROC: 02HV33Z Insertion of Infusion Device into Superior Vena Cava, Percutaneous Approach (ICD-10-PCS; principal; 2017-01-10)
PROC: B548ZZA Ultrasonography of Superior Vena Cava, Guidance (ICD-10-PCS; 2017-01-10)
DX: A41.9 Sepsis, unspecified organism (principal); G93.40 Encephalopathy, unspecified; E43 Unspecified severe protein-calorie malnutrition; L89.154 Pressure ulcer of sacral region, stage 4; A04.72 Enterocolitis due to Clostridium difficile, not specified as recurrent; F11.20 Opioid dependence, uncomplicated; N39.0 Urinary tract infection, site not specified; G82.20 Paraplegia, unspecified; M86.659 Other chronic osteomyelitis, unspecified thigh; B96.5 Pseudomonas (aeruginosa) (mallei) (pseudomallei) as the cause of diseases classified elsewhere; B96.89 Other specified bacterial agents as the cause of diseases classified elsewhere; E86.0 Dehydration; F32.9 Major depressive disorder, single episode, unspecified; E87.6 Hypokalemia; D50.9 Iron deficiency anemia, unspecified; D51.9 Vitamin B12 deficiency anemia, unspecified; G89.29 Other chronic pain; Z79.899 Other long term (current) drug therapy; Z93.3 Colostomy status; F17.200 Nicotine dependence, unspecified, uncomplicated; Z88.0 Allergy status to penicillin; Z88.8 Allergy status to other drugs, medicaments and biological substances
CPT/HCPCS: 36415; 36430; 51702; 71010; 80048; 80053; 81001; 82272; 82533; 82607; 82728; 82746; 82803; 83540; 83550; 83605; 83735; 84100; 84466; 85025; 85045; 86850; 86900; 86901; 86920; 87040; 87070; 87075; 87077; 87086; 87205; 87493; 93005; 93010; 96361; 96365; 96375; 99291; J0692; J0696; J1170; J1650; J1756; J2270; J2550; J2997; J3370; J3420; J3475; J3490; J7030; J7040; P9016

== ENCOUNTER 2017-02-01 10:45 | Inpatient (IN) | payer MEDICARE ==
[2017-02-01 11:23] LABS: VENOUS BLOOD BASE EXCESS 0.8 mmol/L; VENOUS BLOOD HCO3 26.6 mmol/L (20-32); VENOUS BLOOD PCO2 47.5 mmHg (35-63); VENOUS BLOOD PH 7.37 (7.30-7.42)
[2017-02-01 11:24] LABS: ABSOLUTE LYMPHOCYTES (AUTO) 0.7 10^3/uL (0.5-4.7); ABSOLUTE MONOCYTES (AUTO) 0.5 10^3/uL (0.1-1.4); ABSOLUTE NEUT (AUTO) 4.2 10^3/uL (1.7-8.2); BASOPHILS % (AUTO) 0.5 % (0-2); EOSINOPHILS % (AUTO) 0.9 % (0-6); HEMATOCRIT 23.5 % (37.9-51.0); LYMPHOCYTES % (AUTO) 12.9 % (13-45); MEAN CORPUSCULAR HEMOGLOBIN 25.8 pg (27.0-33.4); MEAN CORPUSCULAR HGB CONC 32.6 g/dL (32.0-36.0); MEAN CORPUSCULAR VOLUME 79 fl (80-97); MONOCYTES % (AUTO) 9.3 % (3-13); PLATELET COUNT 413 10^3/uL (150-450); RED BLOOD COUNT 2.97 10^6/uL (4.35-5.55); RED CELL DISTRIBUTION WIDTH 18.3 % (11.5-14.0); SEGMENTED NEUTROPHILS % (AUTO) 76.4 % (42-78); TOTAL CELLS COUNTED % (AUTO) 100 %; WHITE BLOOD COUNT 5.5 10^3/uL (4.0-10.5)
[2017-02-01 11:25] LABS: INTERNATIONAL RATION (INR) 1.12; PROTHROMBIN TIME 15.2 SEC (11.4-15.4)
[2017-02-01 11:26] LABS: HEMOGLOBIN 7.6 g/dL (13.5-17.0)
[2017-02-01 11:41] LABS: ALANINE AMINOTRANSFERASE 25 U/L (21-72); ALBUMIN 1.9 g/dL (3.5-5.0); ALKALINE PHOSPHATASE 176 U/L (38-126); ANION GAP 6 (5-19); ASPARTATE AMINO TRANSFERASE 8 U/L (17-59); BLOOD UREA NITROGEN 10 mg/dL (7-20); CALCIUM 7.5 mg/dL (8.4-10.2); CARBON DIOXIDE 26 mmol/L (22-30); CHLORIDE 102 mmol/L (98-107); GLUCOSE 102 mg/dL (75-110); POTASSIUM 3.6 mmol/L (3.6-5.0); SODIUM 134.1 mmol/L (137-145)
[2017-02-01 11:43] LABS: BILIRUBIN,TOTAL < 0.1 mg/dL (0.2-1.3)
--- NOTE | 2017-02-01 11:45 | EKG REPORT ---
SEVERITY:- OTHERWISE NORMAL ECG - SINUS TACHYCARDIA LOW VOLTAGE IN FRONTAL LEADS : Confirmed by: Tono Lino 01-Feb-2017 11:45:31
[2017-02-01] MEDS ORDERED: NORMAL SALINE 1000 ML 1,000 ML IV ONE ×4 (11:59→15:29)
[2017-02-01 12:27] LABS: A TYPE INFLUENZA AG NEGATIVE (NEGATIVE); B INFLUENZA AG NEGATIVE (NEGATIVE)
--- NOTE | 2017-02-01 12:39 | RADIOLOGY REPORT (SQ) ---
EXAM DESCRIPTION: CHEST SINGLE VIEW COMPLETED DATE/TIME: 02/01/2017 12:18 pm REASON FOR STUDY: bed 17 sepsis protocol COMPARISON: 01/14/2017, 01/10/2017 chest films EXAM PARAMETERS: NUMBER OF VIEWS: One view. TECHNIQUE: Single frontal radiographic view of the chest acquired. RADIATION DOSE: NA LIMITATIONS: None. FINDINGS: LUNGS AND PLEURA: No opacities, masses or pneumothorax. No pleural effusion. MEDIASTINUM AND HILAR STRUCTURES: No masses. Contour normal. HEART AND VASCULAR STRUCTURES: Heart normal in size. Normal vasculature. BONES: No acute findings. HARDWARE: None in the chest. OTHER: No other significant finding. IMPRESSION: NO ACUTE RADIOGRAPHIC FINDING IN THE CHEST. TECHNICAL DOCUMENTATION: JOB ID: [id number] [facility]- All Rights Reserved
[2017-02-01 12:51] LABS: APPEARANCE,URINE CLOUDY; BILIRUBIN,URINE NEGATIVE (NEGATIVE); COLOR,URINE YELLOW; GLUCOSE, URINE NEGATIVE (NEGATIVE); KETONES,URINE NEGATIVE (NEGATIVE); LEUKOCYTE ESTERASE,URINE LARGE (NEGATIVE); NITRITE,URINE POSITIVE (NEGATIVE); PROTEIN,URINE 30 mg/dL (NEGATIVE); URINE SPECIFIC GRAVITY 1.012; UROBILINOGEN,URINE NEGATIVE mg/dL (<2.0)
[2017-02-01] MEDS ORDERED: CEFEPIME 1 GM/D5W RTU 1 GM/50 ML RTUPB IV ONE (12:54)
[2017-02-01] MEDS ORDERED: CEFTRIAXONE 1 GM/D5W RTU 1 GM/50 ML RTUPB IV ONE (12:55)
[2017-02-01] MEDS ORDERED: FENTANYL CITRATE INJ/PF 100 MCG/2 ML AMPUL IV ONE ×2 (12:58→17:42)
[2017-02-01] MEDS ORDERED: VANCOMYCIN HCL INJ 1000 MG VIAL IV ONE ×2 (13:08→15:36)
[2017-02-01] MEDS ORDERED: ACETAMINOPHEN 325 MG TABLET PO ONE (14:49)
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
[2017-02-01] MEDS ORDERED: ACETAMINOPHEN 650 MG SUPP.RECT PR PRN (15:38)
[2017-02-01] MEDS ORDERED: ZOLPIDEM TARTRATE 5 MG TABLET PO PRN (17:00)
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
[2017-02-01] MEDS ORDERED: ONDANSETRON HCL INJ/PF 4 MG/2 ML SDV IV ONE (17:42)
[2017-02-01] MEDS ORDERED: LIDOCAINE 2% JELLY 5 ML TUBE ONE (18:22)
[2017-02-01] MEDS ORDERED: LIDOCAINE 2% URO-JET 5 ML KIT ONE (18:22)
[2017-02-01] MEDS: ACETAMINOPHEN 325 MG TABLET PO SCH ×2 (20:00→21:04)
[2017-02-01] MEDS: FERROUS SULFATE 325 MG TABLET PO SCH (20:00)
--- NOTE | 2017-02-01 20:19 | Operative Report ---
Operative Report DATE OF SURGERY: 02/01/17 PREOPERATIVE DIAGNOSIS: Sepsis. Inability to pass Corral catheter POSTOPERATIVE DIAGNOSIS: Same OPERATION: Insertion of an 18 Mont[place]erratian coud catheter SURGEON: AURELIANO BEDOYA ANESTHESIA: Other - Lidocaine gel 2% TISSUE REMOVED OR ALTERED: None COMPLICATIONS: None ESTIMATED BLOOD LOSS: None INTRAOPERATIVE FINDINGS: See below PROCEDURE: Patient was evaluated on the fifth floor of [facility]. He is a 56-year -old white male with history of noncompliance, smoking, paraplegia, colostomy, indwelling Corral catheter who is admitted to the hospitalist service for sepsis. The concern for urosepsis, and cloudy urine in his indwelling Corral catheter bag, the Corral catheter was removed in the emergency department. Apparently Dr. Resendez made several attempts to insert various Corral catheters into the patient's urinary bladder but were unsuccessful. The patient was transferred to the floor. No urologist was labor relations worker. The hospitalist consult to Dr. Bedoya, general surgeon for advice. At bedside we assessed the patient. Stated that he has had overflow urinary incontinence in the past. We proceeded to tell her I would make an attempt at insertion of a coud catheter, 18 Montserratian. Staining of the patient's right side , the penis was evaluated. There was evidence of surgically created slit of the glans penis. This appeared chronic, old and well-healed. His penis was prepped with Betadine, then approximately 10 cc of lidocaine jelly, 2% activity into the throat meatus. We then placed a 18 Montserratian rigid coud catheter into the penis all the way to the [facility]. We will of the balloon with 6 cc of saline , and secured the catheter in position. Is hooked up to drainage bag. Of note the patient stated the Corral catheter felt like it was in proper position. Also should had recently all over the bed or to catheter insertion. The patient tolerated procedure well and there was no evidence of trauma or bleeding. Approximately 1 hour later we contacted the nursing services on the floor, reported that the patient was voiding clear yellow urine the catheter. We felt the catheter was in safe position so was left as is.
[2017-02-01] MEDS: FAMOTIDINE 20 MG TABLET PO SCH (21:37)
[2017-02-01] MEDS: MIRTAZAPINE 15 MG TABLET PO SCH (21:37)
[2017-02-01] MEDS: HEPARIN SOD (PORCINE) 5,000 UNIT/ML 1 ML SYRINGE SUBCUT SCH (21:37)
[2017-02-01] MEDS: VANCOMYCIN HCL 1,000 MG in DEXTROSE 5%-WATER 250 ML IV SCH (21:37)
[2017-02-01] MEDS: GABAPENTIN 400 MG CAPSULE PO SCH (21:37)
[2017-02-01] MEDS: OXYCODONE HCL SR 10 MG TABLET PO SCH (21:38)
[2017-02-01] MEDS: BACLOFEN 10 MG TABLET PO SCH (21:38)
[2017-02-01] MEDS: NYSTATIN TOPICAL POWDER 15 GM TP SCH (21:39)
[2017-02-01] MEDS ORDERED: AZTREONAM 1.5 GM in DEXTROSE 5%-WATER 100 ML IV SCH (22:00)
[2017-02-02] MEDS: CEFEPIME 2 GM/D5W RTU 2 GM/50 ML RTUPB IV SCH ×3 (01:40→22:27)
[2017-02-02] MEDS: ACETAMINOPHEN 325 MG TABLET PO SCH ×6 (01:41→22:27)
[2017-02-02 04:44] LABS: ABSOLUTE LYMPHOCYTES (AUTO) 0.8 10^3/uL (0.5-4.7); ABSOLUTE MONOCYTES (AUTO) 0.5 10^3/uL (0.1-1.4); ABSOLUTE NEUT (AUTO) 3.1 10^3/uL (1.7-8.2); BASOPHILS % (AUTO) 0.8 % (0-2); EOSINOPHILS % (AUTO) 0.9 % (0-6); HEMATOCRIT 20.6 % (37.9-51.0); LYMPHOCYTES % (AUTO) 18.6 % (13-45); MEAN CORPUSCULAR HEMOGLOBIN 25.3 pg (27.0-33.4); MEAN CORPUSCULAR HGB CONC 32.1 g/dL (32.0-36.0); MEAN CORPUSCULAR VOLUME 79 fl (80-97); MONOCYTES % (AUTO) 10.8 % (3-13); PLATELET COUNT 379 10^3/uL (150-450); RED BLOOD COUNT 2.61 10^6/uL (4.35-5.55); RED CELL DISTRIBUTION WIDTH 18.2 % (11.5-14.0); SEGMENTED NEUTROPHILS % (AUTO) 68.9 % (42-78); TOTAL CELLS COUNTED % (AUTO) 100 %; WHITE BLOOD COUNT 4.5 10^3/uL (4.0-10.5)
[2017-02-02 04:46] LABS: HEMOGLOBIN 6.6 g/dL (13.5-17.0)
[2017-02-02 04:57] LABS: ALANINE AMINOTRANSFERASE 23 U/L (21-72); ALBUMIN 1.7 g/dL (3.5-5.0); ALKALINE PHOSPHATASE 152 U/L (38-126); ANION GAP 7 (5-19); ASPARTATE AMINO TRANSFERASE 7 U/L (17-59); BLOOD UREA NITROGEN 6 mg/dL (7-20); CALCIUM 7.2 mg/dL (8.4-10.2); CARBON DIOXIDE 21 mmol/L (22-30); CHLORIDE 108 mmol/L (98-107); GLUCOSE 83 mg/dL (75-110); POTASSIUM 3.4 mmol/L (3.6-5.0); SODIUM 135.7 mmol/L (137-145); TOTAL PROTEIN 4.4 g/dL (6.3-8.2)
[2017-02-02 05:03] LABS: BILIRUBIN,TOTAL < 0.1 mg/dL (0.2-1.3)
[2017-02-02] MEDS: VANCOMYCIN HCL 1,000 MG in DEXTROSE 5%-WATER 250 ML IV SCH ×3 (06:09→22:27)
[2017-02-02] MEDS: GABAPENTIN 400 MG CAPSULE PO SCH ×3 (06:09→22:27)
[2017-02-02] MEDS: HEPARIN SOD (PORCINE) 5,000 UNIT/ML 1 ML SYRINGE SUBCUT SCH ×3 (06:09→22:27)
[2017-02-02] MEDS: OXYCODONE HCL IR 5 MG TABLET PO PRN ×3 (06:09→18:24)
[2017-02-02 06:42] LABS: HEMATOCRIT 20.6 % (37.9-51.0); MEAN CORPUSCULAR HEMOGLOBIN 25.5 pg (27.0-33.4); MEAN CORPUSCULAR HGB CONC 32.6 g/dL (32.0-36.0); MEAN CORPUSCULAR VOLUME 78 fl (80-97); PLATELET COUNT 413 10^3/uL (150-450); RED BLOOD COUNT 2.63 10^6/uL (4.35-5.55); RED CELL DISTRIBUTION WIDTH 18.1 % (11.5-14.0); WHITE BLOOD COUNT 4.5 10^3/uL (4.0-10.5)
[2017-02-02 06:43] LABS: HEMOGLOBIN 6.7 g/dL (13.5-17.0)
[2017-02-02] MEDS ORDERED: LEVOFLOXACIN 500 MG/D5W RTU 100 ML IV SCH (10:00)
[2017-02-02] MEDS ORDERED: DULOXETINE HCL 20 MG CAPSULE.DR PO SCH (10:00)
[2017-02-02] MEDS ORDERED: CEFTRIAXONE 1 GM/D5W RTU 1 GM/50 ML RTUPB IV SCH (10:00)
--- NOTE | 2017-02-02 10:29 | RADIOLOGY REPORT (SQ) ---
EXAM DESCRIPTION: PICC INSERTION; FLUORO/CV PLACEMENT; U/S GUIDE FOR VASCULAR ACCESS COMPLETED DATE/TIME: 02/02/2017 10:14 am REASON FOR STUDY: Poor IV access; IV ACCESS COMPARISON: Chest film 02/01/2017, 01/14/2017, 01/10/2017 FLUOROSCOPY TIME: 16 seconds 1 ultrasound vascular access image and 1 digital chest image saved to PACS. TECHNIQUE: Fluoroscopic and ultrasound guided PICC placement. LIMITATIONS: None. PROCEDURE: After written consent and assessment were obtained, the patient was brought into the fluo roscopy room and place supine on the table. Ultrasound was used on the patient's left arm for PICC a ccess. The left arm was prepped and draped in a sterile fashion along with the ultrasound probe. The entry site was anesthetized with 2.5 mL of 1% lidocaine. A 21 gauge 7 cm needle was advanced through the skin and into the basilic vein under live ultrasound guidance. An ultrasound image was saved to PACS confirming access site. A .018 guide wire was then inserted through the needle and into the yuni ous system. The needle was the removed and an 11 blade scalpel was used to make a 1cm skin incision. A 5 fr peel-away sheath was advanced over the wire and into the venous system. A measurement was the n made using the existing wire and live fluoroscopic guidance. The wire was then removed and the trim med. The PICC was advanced through the peel-away sheath and into the venous system. The peel-away she ath was removed and the catheter was adhered to the patients arm with a stat lock. The catheter was t hen aspirated and flushed and a sterile bandage was placed over the access site. A fluoroscopic spot image was saved to PACS confirming the catheter tip within the superior vena cava. IMPRESSION: SUCCESSFUL PLACEMENT OF A 5 FR DUAL LUMEN 43 CM PICC IN THE LEFT BASILIC VEIN. COMMENT: Patient medication list reviewed: Yes- Quality ID# [id number]:Eligible professional attests to doc umenting in the medical record they obtained, updated, or reviewed the patient's current medications. . Quality ID 145: Final reports for procedures using fluoroscopy that document radiation exposure parrish mehdi, or exposure time and number of fluorographic images (if radiation exposure indices are not avail able) Quality ID #76: The patient was prepped and draped using maximum sterile barrier technique including cap, mask, sterile gown, sterile gloves, a large sterile sheet, hand hygiene, and 2% Chlorhexidine fo r cutaneous antisepsis. When ultrasound is used, sterile ultrasound techniques are followed requiring sterile gel and sterile probes. TECHNICAL DOCUMENTATION: JOB ID: [id number] [employer]- All Rights Reserved
[2017-02-02] MEDS: BACLOFEN 10 MG TABLET PO SCH ×2 (10:36→22:27)
[2017-02-02] MEDS: COLLAGENASE CLOSTRIDIUM HIST. OINT 30 GM TOP SCH (10:41)
[2017-02-02] MEDS: FLUDROCORTISONE ACETATE 0.1 MG TABLET PO SCH (10:43)
[2017-02-02] MEDS: FAMOTIDINE 20 MG TABLET PO SCH ×2 (10:43→22:27)
[2017-02-02] MEDS: OXYCODONE HCL SR 10 MG TABLET PO SCH ×2 (10:43→22:27)
[2017-02-02] MEDS: NYSTATIN TOPICAL POWDER 15 GM TP SCH ×2 (10:43→22:27)
[2017-02-02] MEDS: CYANOCOBALAMIN (VITAMIN B-12) 1,000 MCG TABLET PO SCH (13:30)
[2017-02-02] MEDS ORDERED: DULOXETINE HCL 20 MG CAPSULE.DR PO ONE (13:30)
[2017-02-02] MEDS ORDERED: ZOLPIDEM TARTRATE 5 MG TABLET PO PRN (14:30)
[2017-02-02 16:05] LABS: VANCOMYCIN,TROUGH 10.8 ug/mL (5.0-20.0)
[2017-02-02] MEDS: FERROUS SULFATE 325 MG TABLET PO SCH (16:53)
[2017-02-02] MEDS ORDERED: POTASSIUM CHLORIDE 10 MEQ TABLET.SA PO ONE (18:28)
--- NOTE | 2017-02-02 18:46 | PDOC PROGRESS REPORT ---
Subjective Progress Note for:: 02/02/17 Subjective:: Pt states that he is doing pretty good today. Nursing states that pt had + blood culture. Reason For Visit: UTI Physical Exam Vital Signs: Temp Pulse Resp BP Pulse Ox 100.1 F 102 H 16 92/49 L 99 02/02/17 16:00 02/02/17 16:00 02/02/17 16:00 02/02/17 16:00 02/02/17 16:00 Intake & Output 02/01/17 02/02/17 02/03/17 06:59 06:59 06:59 Intake Total 400 1650 Output Total 1780 650 Balance -1380 1000 General appearance: PRESENT: no acute distress, thin Head exam: PRESENT: atraumatic, normocephalic Eye exam: PRESENT: conjunctiva pink, EOMI. ABSENT: scleral icterus Ear exam: PRESENT: normal external ear exam Mouth exam: PRESENT: moist, tongue midline Neck exam: ABSENT: carotid bruit, JVD, lymphadenopathy, thyromegaly Respiratory exam: PRESENT: clear to auscultation maury. ABSENT: rales, rhonchi, wheezes Cardiovascular exam: PRESENT: RRR. ABSENT: diastolic murmur, rubs, systolic murmur Pulses: PRESENT: normal dorsalis pedis pul Vascular exam: PRESENT: normal capillary refill GI/Abdominal exam: PRESENT: normal bowel sounds, soft. ABSENT: distended, guarding, mass, organolmegaly, rebound, tenderness Rectal exam: PRESENT: deferred Extremities exam: PRESENT: full ROM. ABSENT: calf tenderness, clubbing, pedal edema Neurological exam: PRESENT: alert, awake, oriented to person, oriented to place , oriented to time, oriented to situation, CN II-XII grossly intact. ABSENT: motor sensory deficit Psychiatric exam: PRESENT: appropriate affect, normal mood. ABSENT: homicidal ideation, suicidal ideation Results Laboratory Results: 02/02/17 06:15 02/02/17 15:00 02/02/17 02/02/17 02/02/17 03:59 03:59 06:15 WBC 4.5 4.5 RBC 2.61 L 2.63 L Hgb 6.6 L 6.7 L Hct 20.6 L 20.6 L MCV 79 L 78 L MCH 25.3 L 25.5 L MCHC 32.1 32.6 RDW 18.2 H 18.1 H Plt Count 379 413 Seg Neutrophils % 68.9 Lymphocytes % 18.6 Monocytes % 10.8 Eosinophils % 0.9 Basophils % 0.8 Absolute Neutrophils 3.1 Absolute Lymphocytes 0.8 Absolute Monocytes 0.5 Absolute Eosinophils 0.0 Absolute Basophils 0.0 Sodium 135.7 L Potassium 3.4 L Chloride 108 H Carbon Dioxide 21 L Anion Gap 7 BUN 6 L Creatinine 0.32 L Est GFR ( Amer) > 60 Est GFR (Non-Af Amer) > 60 Glucose 83 Calcium 7.2 L Total Bilirubin < 0.1 L AST 7 L ALT 23 Alkaline Phosphatase 152 H Total Protein 4.4 L Albumin 1.7 L Blood Type Antibody Screen 02/02/17 02/02/17 06:15 15:00 WBC RBC Hgb Hct MCV MCH MCHC RDW Plt Count Seg Neutrophils % Lymphocytes % Monocytes % Eosinophils % Basophils % Absolute Neutrophils Absolute Lymphocytes Absolute Monocytes Absolute Eosinophils Absolute Basophils Sodium Potassium Chloride Carbon Dioxide Anion Gap BUN Creatinine 0.42 L Est GFR ( Amer) > 60 Est GFR (Non-Af Amer) > 60 Glucose Calcium Total Bilirubin AST ALT Alkaline Phosphatase Total Protein Albumin Blood Type O POSITIVE Antibody Screen NEGATIVE Impressions: Chest X-Ray 02/01/17 10:47 IMPRESSION: NO ACUTE RADIOGRAPHIC FINDING IN THE CHEST. Guidance Fluoroscopy 02/02/17 00:00 IMPRESSION: SUCCESSFUL PLACEMENT OF A 5 FR DUAL LUMEN 43 CM PICC IN THE LEFT BASILIC VEIN. Interventional Vascular Procedure 02/02/17 00:00 IMPRESSION: SUCCESSFUL PLACEMENT OF A 5 FR DUAL LUMEN 43 CM PICC IN THE LEFT BASILIC VEIN. PICC Line Insertion 02/02/17 00:00 IMPRESSION: SUCCESSFUL PLACEMENT OF A 5 FR DUAL LUMEN 43 CM PICC IN THE LEFT BASILIC VEIN. Assessment & Plan - Diagnosis (1) Sepsis Qualifiers: Sepsis type: sepsis due to unspecified organism Qualified Code(s): A41.9 - Sepsis, unspecified organism Is this a current diagnosis for this admission?: Yes Plan: Secondary to Sacral Wounds and Suspected Acute Cystitis: Will continue Vanco and Cefepime. Pt with positive blood culture today and PICC was placed today. Will wait for Identification of organism. (2) Wounds, multiple Is this a current diagnosis for this admission?: Yes Plan: Sacral Wound Stage 4, Left heel Stage 2-3, Coccyx Stage 2: Will continue Antibiotics and wound care. (3) Sacral decubitus ulcer, stage III Is this a current diagnosis for this admission?: Yes Plan: Will continue Vanco and Cefepime. (4) Urinary tract infection Qualifiers: Urinary tract infection type: catheter-associated UTI Indwelling urinary catheter type: indwelling urethral catheter Encounter type: sequela Qualified Code(s): T83.511S - Infection and inflammatory reaction due to indwelling urethral catheter, sequela; N39.0 - Urinary tract infection, site not specified; N39.0 - Urinary tract infection, site not specified Is this a current diagnosis for this admission?: Yes Plan: Gram Neg Rods Acute Cystitis: Will continue Cefepime. (5) Anemia Qualifiers: Anemia type: unspecified type Qualified Code(s): D64.9 - Anemia, unspecified Is this a current diagnosis for this admission?: Yes Plan: Multifactorial S/P 2 units of PRBCs: Will place pt on Iron replacement. (6) Severe protein-calorie malnutrition Is this a current diagnosis for this admission?: Yes Plan: Will continue supplemental drinks. (7) DVT prophylaxis Is this a current diagnosis for this admission?: Yes Plan: Heparin - Time Time Spent with patient: 15-24 minutes
[2017-02-02] MEDS: MIRTAZAPINE 15 MG TABLET PO SCH (22:27)
[2017-02-02] MEDS: NORMAL SALINE 10 ML SDV (SCHEDULED) IV SCH (22:27)
[2017-02-02] MEDS: NORMAL SALINE 10 ML SDV (AFTER EACH USE) IV PRN (22:28)
[2017-02-03] MEDS: ACETAMINOPHEN 325 MG TABLET PO SCH ×6 (01:49→22:14)
[2017-02-03] MEDS: HEPARIN SOD (PORCINE) 5,000 UNIT/ML 1 ML SYRINGE SUBCUT SCH ×3 (05:15→22:14)
[2017-02-03] MEDS: GABAPENTIN 400 MG CAPSULE PO SCH ×3 (05:15→22:13)
[2017-02-03] MEDS: OXYCODONE HCL IR 5 MG TABLET PO PRN ×3 (05:15→22:14)
[2017-02-03] MEDS: VANCOMYCIN HCL 1,000 MG in DEXTROSE 5%-WATER 250 ML IV SCH ×3 (05:15→22:14)
[2017-02-03 07:02] LABS: ABSOLUTE EOSINOPHILS # (AUTO) 0.1 10^3/uL (0.0-0.6); ABSOLUTE LYMPHOCYTES (AUTO) 0.8 10^3/uL (0.5-4.7); ABSOLUTE MONOCYTES (AUTO) 0.5 10^3/uL (0.1-1.4); ABSOLUTE NEUT (AUTO) 2.7 10^3/uL (1.7-8.2); BASOPHILS % (AUTO) 0.7 % (0-2); EOSINOPHILS % (AUTO) 1.9 % (0-6); HEMATOCRIT 23.8 % (37.9-51.0); LYMPHOCYTES % (AUTO) 18.9 % (13-45); MEAN CORPUSCULAR HEMOGLOBIN 26.6 pg (27.0-33.4); MEAN CORPUSCULAR HGB CONC 33.3 g/dL (32.0-36.0); MEAN CORPUSCULAR VOLUME 80 fl (80-97); MONOCYTES % (AUTO) 12.6 % (3-13); PLATELET COUNT 339 10^3/uL (150-450); RED BLOOD COUNT 2.97 10^6/uL (4.35-5.55); RED CELL DISTRIBUTION WIDTH 17.4 % (11.5-14.0); SEGMENTED NEUTROPHILS % (AUTO) 65.9 % (42-78); TOTAL CELLS COUNTED % (AUTO) 100 %
[2017-02-03 07:05] LABS: HEMOGLOBIN 7.9 g/dL (13.5-17.0)
[2017-02-03 07:09] LABS: ALANINE AMINOTRANSFERASE 24 U/L (21-72); ALBUMIN 1.6 g/dL (3.5-5.0); ALKALINE PHOSPHATASE 156 U/L (38-126); ANION GAP 5 (5-19); ASPARTATE AMINO TRANSFERASE 6 U/L (17-59); BLOOD UREA NITROGEN 6 mg/dL (7-20); CALCIUM 7.4 mg/dL (8.4-10.2); CARBON DIOXIDE 24 mmol/L (22-30); CHLORIDE 106 mmol/L (98-107); GLUCOSE 87 mg/dL (75-110); POTASSIUM 3.9 mmol/L (3.6-5.0); TOTAL PROTEIN 4.4 g/dL (6.3-8.2)
[2017-02-03 07:16] LABS: BILIRUBIN,TOTAL < 0.1 mg/dL (0.2-1.3)
[2017-02-03] MEDS: NORMAL SALINE 10 ML SDV (SCHEDULED) IV SCH ×2 (10:55→22:14)
[2017-02-03] MEDS: BACLOFEN 10 MG TABLET PO SCH ×2 (10:55→22:14)
[2017-02-03] MEDS: FLUDROCORTISONE ACETATE 0.1 MG TABLET PO SCH (10:55)
[2017-02-03] MEDS: CEFEPIME 2 GM/D5W RTU 2 GM/50 ML RTUPB IV SCH ×2 (10:55→22:14)
[2017-02-03] MEDS: COLLAGENASE CLOSTRIDIUM HIST. OINT 30 GM TOP SCH (10:56)
[2017-02-03] MEDS: OXYCODONE HCL SR 10 MG TABLET PO SCH ×2 (10:56→22:13)
[2017-02-03] MEDS: FAMOTIDINE 20 MG TABLET PO SCH ×2 (10:56→22:13)
--- NOTE | 2017-02-03 14:55 | PDOC PROGRESS REPORT ---
Subjective Progress Note for:: 02/03/17 Subjective:: Pt states that he is doing ok this morning. Nursing states that pt is doing ok no new issues. Reason For Visit: UTI Physical Exam Vital Signs: Temp Pulse Resp BP Pulse Ox 99.9 F 99 12 115/46 L 95 02/03/17 11:36 02/03/17 11:36 02/03/17 11:36 02/03/17 11:36 02/03/17 11:36 Intake & Output 02/02/17 02/03/17 02/04/17 06:59 06:59 06:59 Intake Total 400 2888 960 Output Total 1780 2825 1000 Balance -1380 63 -40 Weight 68 kg General appearance: PRESENT: no acute distress, thin Head exam: PRESENT: atraumatic, normocephalic Eye exam: PRESENT: conjunctiva pink, EOMI. ABSENT: scleral icterus Ear exam: PRESENT: normal external ear exam Mouth exam: PRESENT: moist, tongue midline Neck exam: ABSENT: carotid bruit, JVD, lymphadenopathy, thyromegaly Respiratory exam: PRESENT: clear to auscultation maury. ABSENT: rales, rhonchi, wheezes Cardiovascular exam: PRESENT: RRR. ABSENT: diastolic murmur, rubs, systolic murmur Pulses: PRESENT: normal dorsalis pedis pul GI/Abdominal exam: PRESENT: normal bowel sounds, soft. ABSENT: distended, guarding, mass, organolmegaly, rebound, tenderness Rectal exam: PRESENT: deferred Extremities exam: PRESENT: calf tenderness, clubbing, other - edema + 1-2 in thighs and hips.. ABSENT: pedal edema Neurological exam: PRESENT: alert, awake, oriented to person, oriented to place , oriented to time, oriented to situation, CN II-XII grossly intact. ABSENT: motor sensory deficit Psychiatric exam: PRESENT: appropriate affect, normal mood. ABSENT: homicidal ideation, suicidal ideation Skin exam: ABSENT: cyanosis, rash Results Laboratory Results: 02/03/17 06:37 02/03/17 06:37 02/02/17 02/02/17 02/03/17 06:15 15:00 06:37 WBC 4.0 RBC 2.97 L Hgb 7.9 L Hct 23.8 L MCV 80 MCH 26.6 L MCHC 33.3 RDW 17.4 H Plt Count 339 Seg Neutrophils % 65.9 Lymphocytes % 18.9 Monocytes % 12.6 Eosinophils % 1.9 Basophils % 0.7 Absolute Neutrophils 2.7 Absolute Lymphocytes 0.8 Absolute Monocytes 0.5 Absolute Eosinophils 0.1 Absolute Basophils 0.0 Sodium Potassium Chloride Carbon Dioxide Anion Gap BUN Creatinine 0.42 L Est GFR ( Amer) > 60 Est GFR (Non-Af Amer) > 60 Glucose Calcium Total Bilirubin AST ALT Alkaline Phosphatase Total Protein Albumin Blood Type O POSITIVE Antibody Screen NEGATIVE 02/03/17 06:37 WBC RBC Hgb Hct MCV MCH MCHC RDW Plt Count Seg Neutrophils % Lymphocytes % Monocytes % Eosinophils % Basophils % Absolute Neutrophils Absolute Lymphocytes Absolute Monocytes Absolute Eosinophils Absolute Basophils Sodium 135.0 L Potassium 3.9 Chloride 106 Carbon Dioxide 24 Anion Gap 5 BUN 6 L Creatinine 0.41 L Est GFR ( Amer) > 60 Est GFR (Non-Af Amer) > 60 Glucose 87 Calcium 7.4 L Total Bilirubin < 0.1 L AST 6 L ALT 24 Alkaline Phosphatase 156 H Total Protein 4.4 L Albumin 1.6 L Blood Type Antibody Screen Impressions: Chest X-Ray 02/01/17 10:47 IMPRESSION: NO ACUTE RADIOGRAPHIC FINDING IN THE CHEST. Guidance Fluoroscopy 02/02/17 00:00 IMPRESSION: SUCCESSFUL PLACEMENT OF A 5 FR DUAL LUMEN 43 CM PICC IN THE LEFT BASILIC VEIN. Interventional Vascular Procedure 02/02/17 00:00 IMPRESSION: SUCCESSFUL PLACEMENT OF A 5 FR DUAL LUMEN 43 CM PICC IN THE LEFT BASILIC VEIN. PICC Line Insertion 02/02/17 00:00 IMPRESSION: SUCCESSFUL PLACEMENT OF A 5 FR DUAL LUMEN 43 CM PICC IN THE LEFT BASILIC VEIN. Assessment & Plan - Diagnosis (1) Sepsis Qualifiers: Sepsis type: sepsis due to unspecified organism Qualified Code(s): A41.9 - Sepsis, unspecified organism Is this a current diagnosis for this admission?: Yes Plan: Secondary to Sacral Wounds and Suspected Acute Cystitis Pseudomonas: Will continue Vanco and Cefepime. (2) Wounds, multiple Is this a current diagnosis for this admission?: Yes Plan: Sacral Wound Stage 4, Left heel Stage 2-3, Coccyx Stage 2: Will continue Antibiotics and wound care. (3) Sacral decubitus ulcer, stage III Is this a current diagnosis for this admission?: Yes Plan: Will continue Vanco and Cefepime. (4) Urinary tract infection Qualifiers: Urinary tract infection type: catheter-associated UTI Indwelling urinary catheter type: indwelling urethral catheter Encounter type: sequela Qualified Code(s): T83.511S - Infection and inflammatory reaction due to indwelling urethral catheter, sequela; N39.0 - Urinary tract infection, site not specified; N39.0 - Urinary tract infection, site not specified Is this a current diagnosis for this admission?: Yes Plan: Gram Neg Rods Acute Cystitis: Will continue Cefepime. (5) Anemia Qualifiers: Anemia type: unspecified type Qualified Code(s): D64.9 - Anemia, unspecified Is this a current diagnosis for this admission?: Yes Plan: Multifactorial S/P 2 units of PRBCs: Ferrous Sulfate replacement. (6) Severe protein-calorie malnutrition Is this a current diagnosis for this admission?: Yes Plan: Will continue supplemental drinks. (7) DVT prophylaxis Is this a current diagnosis for this admission?: Yes Plan: Heparin - Time Time Spent with patient: 15-24 minutes Anticipated discharge: Other - [facility]. Will have to wait for blood culture to result final and have PICC line replaced.
[2017-02-03] MEDS: NYSTATIN TOPICAL POWDER 15 GM TP SCH ×2 (15:56→22:15)
[2017-02-03] MEDS: CYANOCOBALAMIN (VITAMIN B-12) 1,000 MCG TABLET PO SCH (15:59)
[2017-02-03] MEDS: FERROUS SULFATE 325 MG TABLET PO SCH (19:19)
[2017-02-03] MEDS: MIRTAZAPINE 15 MG TABLET PO SCH (22:14)
[2017-02-03] MEDS: NORMAL SALINE 10 ML SDV (AFTER EACH USE) IV PRN (22:15)
[2017-02-04] MEDS: ACETAMINOPHEN 325 MG TABLET PO SCH ×6 (01:15→22:23)
[2017-02-04] MEDS: GABAPENTIN 400 MG CAPSULE PO SCH ×3 (05:52→22:23)
[2017-02-04] MEDS: HEPARIN SOD (PORCINE) 5,000 UNIT/ML 1 ML SYRINGE SUBCUT SCH ×3 (05:52→22:23)
[2017-02-04] MEDS: VANCOMYCIN HCL 1,000 MG in DEXTROSE 5%-WATER 250 ML IV SCH ×3 (05:52→22:23)
[2017-02-04] MEDS: OXYCODONE HCL IR 5 MG TABLET PO PRN ×3 (05:52→19:56)
[2017-02-04 06:20] LABS: ABSOLUTE EOSINOPHILS # (AUTO) 0.1 10^3/uL (0.0-0.6); ABSOLUTE LYMPHOCYTES (AUTO) 0.8 10^3/uL (0.5-4.7); ABSOLUTE MONOCYTES (AUTO) 0.6 10^3/uL (0.1-1.4); ABSOLUTE NEUT (AUTO) 3.8 10^3/uL (1.7-8.2); BASOPHILS % (AUTO) 0.5 % (0-2); EOSINOPHILS % (AUTO) 1.2 % (0-6); HEMATOCRIT 25.2 % (37.9-51.0); HEMOGLOBIN 8.2 g/dL (13.5-17.0); LYMPHOCYTES % (AUTO) 15.5 % (13-45); MEAN CORPUSCULAR HEMOGLOBIN 26.2 pg (27.0-33.4); MEAN CORPUSCULAR HGB CONC 32.7 g/dL (32.0-36.0); MEAN CORPUSCULAR VOLUME 80 fl (80-97); MONOCYTES % (AUTO) 11.3 % (3-13); PLATELET COUNT 394 10^3/uL (150-450); RED BLOOD COUNT 3.14 10^6/uL (4.35-5.55); RED CELL DISTRIBUTION WIDTH 17.7 % (11.5-14.0); SEGMENTED NEUTROPHILS % (AUTO) 71.5 % (42-78); TOTAL CELLS COUNTED % (AUTO) 100 %; WHITE BLOOD COUNT 5.3 10^3/uL (4.0-10.5)
[2017-02-04 06:38] LABS: ALANINE AMINOTRANSFERASE 20 U/L (21-72); ALBUMIN 1.6 g/dL (3.5-5.0); ALKALINE PHOSPHATASE 179 U/L (38-126); ANION GAP 6 (5-19); ASPARTATE AMINO TRANSFERASE 9 U/L (17-59); BLOOD UREA NITROGEN 5 mg/dL (7-20); CALCIUM 7.2 mg/dL (8.4-10.2); CARBON DIOXIDE 23 mmol/L (22-30); CHLORIDE 105 mmol/L (98-107); GLUCOSE 89 mg/dL (75-110); POTASSIUM 3.3 mmol/L (3.6-5.0); SODIUM 133.5 mmol/L (137-145); TOTAL PROTEIN 4.4 g/dL (6.3-8.2)
[2017-02-04 06:41] LABS: BILIRUBIN,TOTAL < 0.1 mg/dL (0.2-1.3)
[2017-02-04] MEDS ORDERED: POTASSIUM CHLORIDE 10 MEQ TABLET.SA PO ONE (08:30)
[2017-02-04] MEDS: POTASSI CL 20 MEQ/50 ML RIDER 20 MEQ/50 ML RTUPB IV SCH ×2 (08:37→10:14)
[2017-02-04] MEDS: COLLAGENASE CLOSTRIDIUM HIST. OINT 30 GM TOP SCH (09:32)
[2017-02-04] MEDS: NORMAL SALINE 10 ML SDV (SCHEDULED) IV SCH ×2 (09:33→22:23)
[2017-02-04] MEDS: FAMOTIDINE 20 MG TABLET PO SCH ×2 (09:35→22:23)
[2017-02-04] MEDS: BACLOFEN 10 MG TABLET PO SCH ×2 (09:35→22:23)
[2017-02-04] MEDS: OXYCODONE HCL SR 10 MG TABLET PO SCH ×2 (09:35→18:09)
[2017-02-04] MEDS: CEFEPIME 2 GM/D5W RTU 2 GM/50 ML RTUPB IV SCH ×2 (09:36→21:29)
[2017-02-04] MEDS: NYSTATIN TOPICAL POWDER 15 GM TP SCH ×2 (09:37→22:23)
[2017-02-04] MEDS: FLUDROCORTISONE ACETATE 0.1 MG TABLET PO SCH (09:37)
--- NOTE | 2017-02-04 13:52 | PDOC PROGRESS REPORT ---
Subjective Progress Note for:: 02/04/17 Subjective:: Pt states if his pain medications could be increased during dressing changes. Reason For Visit: UTI Physical Exam Vital Signs: Temp Pulse Resp BP Pulse Ox 99.0 F 89 17 88/39 L 97 02/04/17 07:58 02/04/17 07:58 02/04/17 07:58 02/04/17 07:58 02/04/17 07:58 Intake & Output 02/03/17 02/04/17 02/05/17 06:59 06:59 06:59 Intake Total 2888 2150 Output Total 2825 1630 Balance 63 520 Weight 68 kg 66.6 kg General appearance: PRESENT: no acute distress, thin Head exam: PRESENT: atraumatic, normocephalic Eye exam: PRESENT: conjunctiva pink, EOMI. ABSENT: scleral icterus Ear exam: PRESENT: normal external ear exam Mouth exam: PRESENT: moist, tongue midline Neck exam: ABSENT: carotid bruit, JVD, lymphadenopathy, thyromegaly Respiratory exam: PRESENT: clear to auscultation maury. ABSENT: rales, rhonchi, wheezes Cardiovascular exam: PRESENT: RRR. ABSENT: diastolic murmur, rubs, systolic murmur Pulses: PRESENT: normal dorsalis pedis pul Vascular exam: PRESENT: normal capillary refill GI/Abdominal exam: PRESENT: normal bowel sounds, soft. ABSENT: distended, guarding, mass, organolmegaly, rebound, tenderness Rectal exam: PRESENT: deferred Extremities exam: PRESENT: full ROM. ABSENT: calf tenderness, clubbing, pedal edema Neurological exam: PRESENT: alert, awake, oriented to person, oriented to place , oriented to time. ABSENT: motor sensory deficit Psychiatric exam: PRESENT: appropriate affect, normal mood. ABSENT: homicidal ideation, suicidal ideation Skin exam: PRESENT: dry, intact, warm. ABSENT: cyanosis, rash Results Laboratory Results: 02/04/17 05:46 02/04/17 05:46 02/04/17 02/04/17 05:46 05:46 WBC 5.3 RBC 3.14 L Hgb 8.2 L Hct 25.2 L MCV 80 MCH 26.2 L MCHC 32.7 RDW 17.7 H Plt Count 394 Seg Neutrophils % 71.5 Lymphocytes % 15.5 Monocytes % 11.3 Eosinophils % 1.2 Basophils % 0.5 Absolute Neutrophils 3.8 Absolute Lymphocytes 0.8 Absolute Monocytes 0.6 Absolute Eosinophils 0.1 Absolute Basophils 0.0 Sodium 133.5 L Potassium 3.3 L Chloride 105 Carbon Dioxide 23 Anion Gap 6 BUN 5 L Creatinine 0.42 L Est GFR ( Amer) > 60 Est GFR (Non-Af Amer) > 60 Glucose 89 Calcium 7.2 L Total Bilirubin < 0.1 L AST 9 L ALT 20 L Alkaline Phosphatase 179 H Total Protein 4.4 L Albumin 1.6 L Impressions: Chest X-Ray 02/01/17 10:47 IMPRESSION: NO ACUTE RADIOGRAPHIC FINDING IN THE CHEST. Guidance Fluoroscopy 02/02/17 00:00 IMPRESSION: SUCCESSFUL PLACEMENT OF A 5 FR DUAL LUMEN 43 CM PICC IN THE LEFT BASILIC VEIN. Interventional Vascular Procedure 02/02/17 00:00 IMPRESSION: SUCCESSFUL PLACEMENT OF A 5 FR DUAL LUMEN 43 CM PICC IN THE LEFT BASILIC VEIN. PICC Line Insertion 02/02/17 00:00 IMPRESSION: SUCCESSFUL PLACEMENT OF A 5 FR DUAL LUMEN 43 CM PICC IN THE LEFT BASILIC VEIN. Assessment & Plan - Diagnosis (1) Sepsis Qualifiers: Sepsis type: sepsis due to unspecified organism Qualified Code(s): A41.9 - Sepsis, unspecified organism Is this a current diagnosis for this admission?: Yes Plan: Secondary to Sacral Wounds Peptostreptococcus and Suspected Acute Cystitis Pseudomonas: Will continue Vanco and Cefepime. (2) Wounds, multiple Is this a current diagnosis for this admission?: Yes Plan: Sacral Wound Stage 4, Left heel Stage 2-3, Coccyx Stage 2 Peptostreptococcus: Will continue Antibiotics and wound care. Will increase Oxycodone 30 mg PO Q12 (3) Sacral decubitus ulcer, stage III Is this a current diagnosis for this admission?: Yes Plan: Will continue Vanco and Cefepime. (4) Urinary tract infection Qualifiers: Urinary tract infection type: catheter-associated UTI Indwelling urinary catheter type: indwelling urethral catheter Encounter type: sequela Qualified Code(s): T83.511S - Infection and inflammatory reaction due to indwelling urethral catheter, sequela; N39.0 - Urinary tract infection, site not specified; N39.0 - Urinary tract infection, site not specified Is this a current diagnosis for this admission?: Yes Plan: Gram Neg Rods Acute Cystitis: Will continue Cefepime. (5) Anemia Qualifiers: Anemia type: unspecified type Qualified Code(s): D64.9 - Anemia, unspecified Is this a current diagnosis for this admission?: Yes Plan: Multifactorial S/P 2 units of PRBCs: Ferrous Sulfate replacement. Hemoglobin stable currently. (6) Severe protein-calorie malnutrition Is this a current diagnosis for this admission?: Yes Plan: Will continue supplemental drinks. (7) DVT prophylaxis Is this a current diagnosis for this admission?: Yes Plan: Heparin
[2017-02-04] MEDS: CYANOCOBALAMIN (VITAMIN B-12) 1,000 MCG TABLET PO SCH (14:05)
[2017-02-04] MEDS: FERROUS SULFATE 325 MG TABLET PO SCH (18:09)
[2017-02-04] MEDS: NORMAL SALINE 10 ML SDV (AFTER EACH USE) IV PRN (22:23)
[2017-02-04] MEDS: MIRTAZAPINE 15 MG TABLET PO SCH (22:23)
[2017-02-05] MEDS: OXYCODONE HCL IR 5 MG TABLET PO PRN ×3 (01:55→19:56)
[2017-02-05] MEDS: ACETAMINOPHEN 325 MG TABLET PO SCH ×3 (01:55→10:13)
[2017-02-05] MEDS: HEPARIN SOD (PORCINE) 5,000 UNIT/ML 1 ML SYRINGE SUBCUT SCH ×3 (05:20→22:10)
[2017-02-05] MEDS: VANCOMYCIN HCL 1,000 MG in DEXTROSE 5%-WATER 250 ML IV SCH ×2 (05:20→14:01)
[2017-02-05] MEDS: OXYCODONE HCL SR 10 MG TABLET PO SCH ×2 (05:20→17:21)
[2017-02-05] MEDS: GABAPENTIN 400 MG CAPSULE PO SCH ×3 (05:20→22:11)
[2017-02-05] MEDS: COLLAGENASE CLOSTRIDIUM HIST. OINT 30 GM TOP SCH (09:56)
[2017-02-05] MEDS: CEFEPIME 2 GM/D5W RTU 2 GM/50 ML RTUPB IV SCH ×2 (10:12→22:10)
[2017-02-05] MEDS: FAMOTIDINE 20 MG TABLET PO SCH ×2 (10:12→22:11)
[2017-02-05] MEDS: FLUDROCORTISONE ACETATE 0.1 MG TABLET PO SCH (10:13)
[2017-02-05] MEDS: BACLOFEN 10 MG TABLET PO SCH ×2 (10:13→22:11)
[2017-02-05] MEDS: NORMAL SALINE 10 ML SDV (SCHEDULED) IV SCH ×2 (10:15→22:11)
[2017-02-05] MEDS: NYSTATIN TOPICAL POWDER 15 GM TP SCH ×2 (10:15→17:21)
[2017-02-05] MEDS: CYANOCOBALAMIN (VITAMIN B-12) 1,000 MCG TABLET PO SCH (14:01)
--- NOTE | 2017-02-05 14:22 | PDOC PROGRESS REPORT ---
Subjective Progress Note for:: 02/05/17 Subjective:: Pt states that he is doing OK. Nursing states that pt has VRE in stool. Spoke with Pharmacy day about antibiotics. Reason For Visit: UTI Physical Exam Vital Signs: Temp Pulse Resp BP Pulse Ox 98.5 F 96 18 100/52 L 96 02/05/17 11:45 02/05/17 11:45 02/05/17 11:45 02/05/17 11:45 02/05/17 11:45 Intake & Output 02/04/17 02/05/17 02/06/17 06:59 06:59 06:59 Intake Total 2150 2640 Output Total 1630 3500 Balance 520 -860 Weight 66.6 kg 66.8 kg General appearance: PRESENT: no acute distress, thin Head exam: PRESENT: atraumatic, normocephalic Eye exam: PRESENT: conjunctiva pink, EOMI. ABSENT: scleral icterus Ear exam: PRESENT: normal external ear exam Mouth exam: PRESENT: moist, tongue midline Neck exam: ABSENT: carotid bruit, JVD, lymphadenopathy, thyromegaly Respiratory exam: PRESENT: clear to auscultation maury. ABSENT: rales, rhonchi, wheezes Cardiovascular exam: PRESENT: RRR. ABSENT: diastolic murmur, rubs, systolic murmur Pulses: PRESENT: normal dorsalis pedis pul GI/Abdominal exam: PRESENT: other - Colostomy bag in place, scaphoid abdomen, positive for bowel sounds, for pink stoma Rectal exam: PRESENT: deferred Extremities exam: PRESENT: other - Severe muscle wasting with contractures of lower extremities Neurological exam: PRESENT: alert, awake, oriented to person, oriented to place , oriented to time, oriented to situation, CN II-XII grossly intact Psychiatric exam: PRESENT: appropriate affect, normal mood. ABSENT: homicidal ideation, suicidal ideation Skin exam: PRESENT: dry, intact, warm, other - Positive for large sacral wound with wound VAC in place. ABSENT: cyanosis, rash Results Laboratory Results: 02/04/17 05:46 02/04/17 05:46 Impressions: Chest X-Ray 02/01/17 10:47 IMPRESSION: NO ACUTE RADIOGRAPHIC FINDING IN THE CHEST. Guidance Fluoroscopy 02/02/17 00:00 IMPRESSION: SUCCESSFUL PLACEMENT OF A 5 FR DUAL LUMEN 43 CM PICC IN THE LEFT BASILIC VEIN. Interventional Vascular Procedure 02/02/17 00:00 IMPRESSION: SUCCESSFUL PLACEMENT OF A 5 FR DUAL LUMEN 43 CM PICC IN THE LEFT BASILIC VEIN. PICC Line Insertion 02/02/17 00:00 IMPRESSION: SUCCESSFUL PLACEMENT OF A 5 FR DUAL LUMEN 43 CM PICC IN THE LEFT BASILIC VEIN. Assessment & Plan - Diagnosis (1) Sepsis Qualifiers: Sepsis type: sepsis due to unspecified organism Qualified Code(s): A41.9 - Sepsis, unspecified organism Is this a current diagnosis for this admission?: Yes Plan: Secondary to Sacral Wounds Peptostreptococcus and Suspected Acute Cystitis Pseudomonas: We will discontinue vancomycin and continue cefepime (3) Wounds, multiple Is this a current diagnosis for this admission?: Yes Plan: Sacral Wound Stage 4, Left heel Stage 2-3, Coccyx Stage 2 Peptostreptococcus: We will continue cefepime. Will continue oxycodone at current dose. (4) Sacral decubitus ulcer, stage III Is this a current diagnosis for this admission?: Yes Plan: We will continue cefepime and discontinue vancomycin (5) Urinary tract infection Qualifiers: Urinary tract infection type: catheter-associated UTI Indwelling urinary catheter type: indwelling urethral catheter Encounter type: sequela Qualified Code(s): T83.511S - Infection and inflammatory reaction due to indwelling urethral catheter, sequela; N39.0 - Urinary tract infection, site not specified; N39.0 - Urinary tract infection, site not specified Is this a current diagnosis for this admission?: Yes Plan: Pseudomonas acute Cystitis: Will continue Cefepime. (6) Anemia Qualifiers: Anemia type: unspecified type Qualified Code(s): D64.9 - Anemia, unspecified Is this a current diagnosis for this admission?: Yes Plan: Multifactorial S/P 2 units of PRBCs: Ferrous Sulfate replacement. Hemoglobin stable currently. (7) Severe protein-calorie malnutrition Is this a current diagnosis for this admission?: Yes Plan: Will continue supplemental drinks. (8) DVT prophylaxis Is this a current diagnosis for this admission?: Yes Plan: Heparin - Time Time Spent with patient: Less than 15 minutes Anticipated discharge: Other - [facility].
[2017-02-05] MEDS ORDERED: POTASSIUM CHLORIDE 10 MEQ TABLET.SA PO ONE (15:00)
[2017-02-05] MEDS: FERROUS SULFATE 325 MG TABLET PO SCH (17:21)
[2017-02-05] MEDS: ACETAMINOPHEN 325 MG TABLET PO PRN (19:52)
[2017-02-05] MEDS: MIRTAZAPINE 15 MG TABLET PO SCH (22:11)
[2017-02-06] MEDS: ACETAMINOPHEN 325 MG TABLET PO PRN ×2 (04:44→23:54)
[2017-02-06] MEDS: HEPARIN SOD (PORCINE) 5,000 UNIT/ML 1 ML SYRINGE SUBCUT SCH ×3 (05:00→21:31)
[2017-02-06] MEDS: OXYCODONE HCL SR 10 MG TABLET PO SCH ×2 (05:00→17:58)
[2017-02-06] MEDS: GABAPENTIN 400 MG CAPSULE PO SCH ×3 (05:00→21:32)
[2017-02-06 05:07] LABS: ABSOLUTE EOSINOPHILS # (AUTO) 0.1 10^3/uL (0.0-0.6); ABSOLUTE MONOCYTES (AUTO) 0.6 10^3/uL (0.1-1.4); ABSOLUTE NEUT (AUTO) 3.5 10^3/uL (1.7-8.2); BASOPHILS % (AUTO) 0.7 % (0-2); EOSINOPHILS % (AUTO) 1.9 % (0-6); LYMPHOCYTES % (AUTO) 19.2 % (13-45); MEAN CORPUSCULAR HGB CONC 32.4 g/dL (32.0-36.0); MEAN CORPUSCULAR VOLUME 80 fl (80-97); MONOCYTES % (AUTO) 11.7 % (3-13); PLATELET COUNT 375 10^3/uL (150-450); RED CELL DISTRIBUTION WIDTH 18.2 % (11.5-14.0); SEGMENTED NEUTROPHILS % (AUTO) 66.5 % (42-78); TOTAL CELLS COUNTED % (AUTO) 100 %; WHITE BLOOD COUNT 5.3 10^3/uL (4.0-10.5)
[2017-02-06 05:22] LABS: ALANINE AMINOTRANSFERASE 16 U/L (21-72); ALBUMIN 1.7 g/dL (3.5-5.0); ALKALINE PHOSPHATASE 183 U/L (38-126); ANION GAP 7 (5-19); ASPARTATE AMINO TRANSFERASE 8 U/L (17-59); BLOOD UREA NITROGEN 8 mg/dL (7-20); CALCIUM 7.2 mg/dL (8.4-10.2); CARBON DIOXIDE 23 mmol/L (22-30); CHLORIDE 104 mmol/L (98-107); GLUCOSE 119 mg/dL (75-110); MAGNESIUM 1.9 mg/dL (1.6-2.3); POTASSIUM 3.6 mmol/L (3.6-5.0); SODIUM 134.3 mmol/L (137-145); TOTAL PROTEIN 4.5 g/dL (6.3-8.2)
[2017-02-06 05:24] LABS: BILIRUBIN,TOTAL < 0.1 mg/dL (0.2-1.3)
[2017-02-06 05:41] LABS: HEMOGLOBIN 7.8 g/dL (13.5-17.0)
[2017-02-06] MEDS: OXYCODONE HCL IR 5 MG TABLET PO PRN ×3 (07:45→20:48)
[2017-02-06] MEDS ORDERED: LEVOFLOXACIN 500 MG/D5W RTU 500 MG/100 ML RTUPB IV SCH (10:00)
[2017-02-06] MEDS: CEFEPIME 2 GM/D5W RTU 2 GM/50 ML RTUPB IV SCH ×2 (10:13→21:31)
[2017-02-06] MEDS: NORMAL SALINE 10 ML SDV (SCHEDULED) IV SCH ×2 (10:22→21:32)
[2017-02-06] MEDS: NORMAL SALINE 10 ML SDV (AFTER EACH USE) IV PRN (10:22)
[2017-02-06] MEDS: FAMOTIDINE 20 MG TABLET PO SCH ×2 (10:22→21:31)
[2017-02-06] MEDS: NYSTATIN TOPICAL POWDER 15 GM TP SCH ×2 (10:23→18:00)
[2017-02-06] MEDS: FLUDROCORTISONE ACETATE 0.1 MG TABLET PO SCH (10:23)
[2017-02-06] MEDS: BACLOFEN 10 MG TABLET PO SCH ×2 (10:23→21:32)
[2017-02-06] MEDS: COLLAGENASE CLOSTRIDIUM HIST. OINT 30 GM TOP SCH (10:24)
--- NOTE | 2017-02-06 10:56 | PDOC PROGRESS REPORT ---
Subjective Progress Note for:: 02/06/17 Subjective:: Pt states that he is still having some pain. Pt states that the adjustment in pain medication has improved. Nursing states that pt has been doing well overall. Reason For Visit: UTI Physical Exam Vital Signs: Temp Pulse Resp BP Pulse Ox 98.8 F 91 17 100/49 L 97 02/06/17 07:46 02/06/17 07:46 02/06/17 07:46 02/06/17 07:46 02/06/17 07:46 Intake & Output 02/05/17 02/06/17 02/07/17 06:59 06:59 06:59 Intake Total 2640 2460 Output Total 3500 2100 Balance -860 360 Weight 66.8 kg 63.7 kg General appearance: PRESENT: no acute distress, well-developed, well-nourished Head exam: PRESENT: atraumatic, normocephalic Eye exam: PRESENT: conjunctiva pink, EOMI. ABSENT: scleral icterus Ear exam: PRESENT: normal external ear exam Mouth exam: PRESENT: moist, tongue midline Neck exam: ABSENT: carotid bruit, JVD, lymphadenopathy, thyromegaly Respiratory exam: PRESENT: clear to auscultation maury. ABSENT: rales, rhonchi, wheezes Cardiovascular exam: PRESENT: RRR. ABSENT: diastolic murmur, rubs, systolic murmur Pulses: PRESENT: normal carotid pulses Vascular exam: PRESENT: normal capillary refill GI/Abdominal exam: PRESENT: other - Colostomy bag in place, bowel sounds present pink stoma Rectal exam: PRESENT: deferred Extremities exam: PRESENT: other - With lower extremity contractures, severe muscle wasting upper and lower extremities. ABSENT: calf tenderness, clubbing, pedal edema Neurological exam: PRESENT: alert, awake, oriented to person, oriented to place , oriented to time, oriented to situation Psychiatric exam: PRESENT: appropriate affect, normal mood. ABSENT: homicidal ideation, suicidal ideation Skin exam: PRESENT: dry, intact, warm. ABSENT: cyanosis, rash Results Laboratory Results: 02/06/17 04:45 02/06/17 04:45 02/06/17 02/06/17 04:45 04:45 WBC 5.3 RBC 3.00 L Hgb 7.8 L Hct 24.0 L MCV 80 MCH 26.0 L MCHC 32.4 RDW 18.2 H Plt Count 375 Seg Neutrophils % 66.5 Lymphocytes % 19.2 Monocytes % 11.7 Eosinophils % 1.9 Basophils % 0.7 Absolute Neutrophils 3.5 Absolute Lymphocytes 1.0 Absolute Monocytes 0.6 Absolute Eosinophils 0.1 Absolute Basophils 0.0 Sodium 134.3 L Potassium 3.6 Chloride 104 Carbon Dioxide 23 Anion Gap 7 BUN 8 Creatinine 0.45 L Est GFR ( Amer) > 60 Est GFR (Non-Af Amer) > 60 Glucose 119 H Calcium 7.2 L Magnesium 1.9 Total Bilirubin < 0.1 L AST 8 L ALT 16 L Alkaline Phosphatase 183 H Total Protein 4.5 L Albumin 1.7 L Impressions: Chest X-Ray 02/01/17 10:47 IMPRESSION: NO ACUTE RADIOGRAPHIC FINDING IN THE CHEST. Guidance Fluoroscopy 02/02/17 00:00 IMPRESSION: SUCCESSFUL PLACEMENT OF A 5 FR DUAL LUMEN 43 CM PICC IN THE LEFT BASILIC VEIN. Interventional Vascular Procedure 02/02/17 00:00 IMPRESSION: SUCCESSFUL PLACEMENT OF A 5 FR DUAL LUMEN 43 CM PICC IN THE LEFT BASILIC VEIN. PICC Line Insertion 02/02/17 00:00 IMPRESSION: SUCCESSFUL PLACEMENT OF A 5 FR DUAL LUMEN 43 CM PICC IN THE LEFT BASILIC VEIN. Assessment & Plan - Diagnosis (1) Sepsis Qualifiers: Sepsis type: sepsis due to unspecified organism Qualified Code(s): A41.9 - Sepsis, unspecified organism Is this a current diagnosis for this admission?: Yes Plan: Secondary to Sacral Wounds Peptostreptococcus and Bacteroides fragilis and Suspected Acute Cystitis Pseudomonas: We continue Cefepime and add Flagyl. Repeat Blood Cultures demonstrating no growth. Will place order for additional Blood Culture X2. If repeat blood culture will have new PICC line placed. (2) Hypokalemia Is this a current diagnosis for this admission?: Yes Plan: Resolved. (3) Wounds, multiple Is this a current diagnosis for this admission?: Yes Plan: Sacral Wound Stage 4, Left heel Stage 2-3, Coccyx Stage 2 Peptostreptococcus: We will continue cefepime. Will increase Oxycodone dose. (4) Sacral decubitus ulcer, stage III Is this a current diagnosis for this admission?: Yes Plan: We will continue cefepime. (5) Urinary tract infection Qualifiers: Urinary tract infection type: catheter-associated UTI Indwelling urinary catheter type: indwelling urethral catheter Encounter type: sequela Qualified Code(s): T83.511S - Infection and inflammatory reaction due to indwelling urethral catheter, sequela; N39.0 - Urinary tract infection, site not specified; N39.0 - Urinary tract infection, site not specified Is this a current diagnosis for this admission?: Yes Plan: Pseudomonas acute Cystitis: Will continue Cefepime. (6) Anemia Qualifiers: Anemia type: unspecified type Qualified Code(s): D64.9 - Anemia, unspecified Is this a current diagnosis for this admission?: Yes Plan: Multifactorial S/P 2 units of PRBCs: Ferrous Sulfate replacement. Hemoglobin stable currently. (7) Severe protein-calorie malnutrition Is this a current diagnosis for this admission?: Yes Plan: Will continue supplemental drinks. (8) DVT prophylaxis Is this a current diagnosis for this admission?: Yes Plan: Heparin - Time Time Spent with patient: 15-24 minutes - PT HAS AGREED TO GO BACK TO [facility] IF POSSIBLE.
[2017-02-06] MEDS: DULOXETINE HCL 20 MG CAPSULE.DR PO SCH (11:25)
[2017-02-06] MEDS ORDERED: HYDROCODONE/ACETAMINOPHEN 10-325 MG TABLET PO ONE (12:00)
[2017-02-06] MEDS: CYANOCOBALAMIN (VITAMIN B-12) 1,000 MCG TABLET PO SCH (14:31)
[2017-02-06] MEDS: METRONIDAZOLE 500 MG/NS RTU 100 ML IV SCH ×2 (17:59→23:03)
[2017-02-06] MEDS: FERROUS SULFATE 325 MG TABLET PO SCH (17:59)
[2017-02-06] MEDS: MIRTAZAPINE 15 MG TABLET PO SCH (21:32)
[2017-02-07] MEDS ORDERED: VANCOMYCIN HCL INJ 1000 MG VIAL IV PRN (04:08)
[2017-02-07] MEDS ORDERED: VANCOMYCIN HCL 1,000 MG in DEXTROSE 5%-WATER 250 ML IV ONE (04:15)
[2017-02-07] MEDS ORDERED: VANCOMYCIN HCL INJ 1000 MG VIAL ONE (04:33)
[2017-02-07] MEDS: OXYCODONE HCL SR 10 MG TABLET PO SCH ×2 (05:04→17:13)
[2017-02-07] MEDS: HEPARIN SOD (PORCINE) 5,000 UNIT/ML 1 ML SYRINGE SUBCUT SCH ×3 (05:04→21:11)
[2017-02-07] MEDS: GABAPENTIN 400 MG CAPSULE PO SCH ×3 (05:04→21:11)
[2017-02-07 06:04] LABS: ALANINE AMINOTRANSFERASE 23 U/L (21-72); ALBUMIN 1.6 g/dL (3.5-5.0); ALKALINE PHOSPHATASE 164 U/L (38-126); ANION GAP 7 (5-19); ASPARTATE AMINO TRANSFERASE 7 U/L (17-59); BILIRUBIN,DIRECT 0.1 mg/dL (0.0-0.4); BILIRUBIN,TOTAL 0.1 mg/dL (0.2-1.3); BLOOD UREA NITROGEN 8 mg/dL (7-20); CALCIUM 7.4 mg/dL (8.4-10.2); CARBON DIOXIDE 26 mmol/L (22-30); CHLORIDE 105 mmol/L (98-107); GLUCOSE 80 mg/dL (75-110); POTASSIUM 3.4 mmol/L (3.6-5.0); SODIUM 137.5 mmol/L (137-145); TOTAL PROTEIN 4.4 g/dL (6.3-8.2)
[2017-02-07 06:20] LABS: ABSOLUTE EOSINOPHILS # (AUTO) 0.1 10^3/uL (0.0-0.6); ABSOLUTE LYMPHOCYTES (AUTO) 1.6 10^3/uL (0.5-4.7); ABSOLUTE MONOCYTES (AUTO) 0.7 10^3/uL (0.1-1.4); ABSOLUTE NEUT (AUTO) 2.5 10^3/uL (1.7-8.2); BASOPHILS % (AUTO) 0.6 % (0-2); EOSINOPHILS % (AUTO) 2.4 % (0-6); HEMATOCRIT 22.8 % (37.9-51.0); LYMPHOCYTES % (AUTO) 32.6 % (13-45); MEAN CORPUSCULAR HEMOGLOBIN 26.2 pg (27.0-33.4); MEAN CORPUSCULAR HGB CONC 32.3 g/dL (32.0-36.0); MEAN CORPUSCULAR VOLUME 81 fl (80-97); MONOCYTES % (AUTO) 14.1 % (3-13); PLATELET COUNT 323 10^3/uL (150-450); RED BLOOD COUNT 2.81 10^6/uL (4.35-5.55); RED CELL DISTRIBUTION WIDTH 17.9 % (11.5-14.0); SEGMENTED NEUTROPHILS % (AUTO) 50.3 % (42-78); TOTAL CELLS COUNTED % (AUTO) 100 %
[2017-02-07 06:30] LABS: HEMOGLOBIN 7.4 g/dL (13.5-17.0)
[2017-02-07] MEDS: METRONIDAZOLE 500 MG/NS RTU 100 ML IV SCH ×3 (07:11→17:14)
[2017-02-07] MEDS: COLLAGENASE CLOSTRIDIUM HIST. OINT 30 GM TOP SCH (09:10)
[2017-02-07] MEDS: FAMOTIDINE 20 MG TABLET PO SCH ×2 (09:21→21:11)
[2017-02-07] MEDS: NORMAL SALINE 10 ML SDV (SCHEDULED) IV SCH ×2 (09:21→21:11)
[2017-02-07] MEDS: CEFEPIME 2 GM/D5W RTU 2 GM/50 ML RTUPB IV SCH ×2 (09:21→21:11)
[2017-02-07] MEDS: DULOXETINE HCL 20 MG CAPSULE.DR PO SCH (09:21)
[2017-02-07] MEDS: FLUDROCORTISONE ACETATE 0.1 MG TABLET PO SCH (09:21)
[2017-02-07] MEDS: BACLOFEN 10 MG TABLET PO SCH ×2 (09:21→21:11)
[2017-02-07] MEDS: OXYCODONE HCL IR 5 MG TABLET PO PRN ×3 (09:21→23:07)
[2017-02-07] MEDS: NYSTATIN TOPICAL POWDER 15 GM TP SCH ×2 (09:22→17:14)
[2017-02-07] MEDS: CYANOCOBALAMIN (VITAMIN B-12) 1,000 MCG TABLET PO SCH (13:57)
[2017-02-07] MEDS: VANCOMYCIN HCL 1,250 MG in DEXTROSE 5%-WATER 250 ML IV SCH ×2 (13:57→23:00)
[2017-02-07] MEDS ORDERED: NORMAL SALINE 250 ML IV PRN ×2 (14:47)
--- NOTE | 2017-02-07 14:47 | PDOC PROGRESS REPORT ---
Subjective Progress Note for:: 02/07/17 Subjective:: Patient is a paraplegic with chronic decubitus ulcers presenting with sepsis and found to be bacteremic with a UTI. Patient states he is doing pretty good complains of pain. Patient was previously hospital and has a problem with chronic pain. Reason For Visit: UTI Physical Exam Vital Signs: Temp Pulse Resp BP Pulse Ox 98.5 F 91 18 99/58 L 99 02/07/17 11:34 02/07/17 11:34 02/07/17 11:34 02/07/17 11:34 02/07/17 11:34 Intake & Output 02/06/17 02/07/17 02/08/17 06:59 06:59 06:59 Intake Total 2460 2130 Output Total 2100 3400 Balance 360 -1270 Weight 63.7 kg 63.3 kg General appearance: PRESENT: no acute distress, well-developed Head exam: PRESENT: normocephalic Eye exam: PRESENT: EOMI. ABSENT: scleral icterus Mouth exam: PRESENT: moist, other - missing dentition Neck exam: ABSENT: carotid bruit, JVD, lymphadenopathy, thyromegaly Respiratory exam: PRESENT: clear to auscultation maury. ABSENT: rales, rhonchi, wheezes Cardiovascular exam: PRESENT: RRR. ABSENT: diastolic murmur, rubs, systolic murmur Pulses: PRESENT: normal dorsalis pedis pul Vascular exam: PRESENT: normal capillary refill GI/Abdominal exam: PRESENT: normal bowel sounds, soft, other - Ostomy in place with stool. ABSENT: distended, guarding, mass, organolmegaly, rebound, tenderness Rectal exam: PRESENT: deferred Extremities exam: PRESENT: full ROM. ABSENT: calf tenderness, clubbing, pedal edema Musculoskeletal exam: PRESENT: other - Patient is contracted Neurological exam: PRESENT: alert, awake, oriented to person, oriented to place , oriented to time, oriented to situation, other - Paraplegic with colostomy and indwelling Corral. ABSENT: motor sensory deficit Psychiatric exam: PRESENT: appropriate affect, normal mood. ABSENT: homicidal ideation, suicidal ideation Skin exam: PRESENT: dry, intact, warm, other - With wound VAC on sacral wound.. ABSENT: cyanosis, rash Results Laboratory Results: 02/07/17 05:20 02/07/17 05:20 02/07/17 02/07/17 05:20 05:20 WBC 5.0 RBC 2.81 L Hgb 7.4 L Hct 22.8 L MCV 81 MCH 26.2 L MCHC 32.3 RDW 17.9 H Plt Count 323 Seg Neutrophils % 50.3 Lymphocytes % 32.6 Monocytes % 14.1 H Eosinophils % 2.4 Basophils % 0.6 Absolute Neutrophils 2.5 Absolute Lymphocytes 1.6 Absolute Monocytes 0.7 Absolute Eosinophils 0.1 Absolute Basophils 0.0 Sodium 137.5 Potassium 3.4 L Chloride 105 Carbon Dioxide 26 Anion Gap 7 BUN 8 Creatinine 0.39 L Est GFR ( Amer) > 60 Est GFR (Non-Af Amer) > 60 Glucose 80 Calcium 7.4 L Total Bilirubin 0.1 L AST 7 L ALT 23 Alkaline Phosphatase 164 H Total Protein 4.4 L Albumin 1.6 L Impressions: Chest X-Ray 02/01/17 10:47 IMPRESSION: NO ACUTE RADIOGRAPHIC FINDING IN THE CHEST. Guidance Fluoroscopy 02/02/17 00:00 IMPRESSION: SUCCESSFUL PLACEMENT OF A 5 FR DUAL LUMEN 43 CM PICC IN THE LEFT BASILIC VEIN. Interventional Vascular Procedure 02/02/17 00:00 IMPRESSION: SUCCESSFUL PLACEMENT OF A 5 FR DUAL LUMEN 43 CM PICC IN THE LEFT BASILIC VEIN. PICC Line Insertion 02/02/17 00:00 IMPRESSION: SUCCESSFUL PLACEMENT OF A 5 FR DUAL LUMEN 43 CM PICC IN THE LEFT BASILIC VEIN. Assessment & Plan - Diagnosis (1) Sepsis Qualifiers: Sepsis type: sepsis due to unspecified organism Qualified Code(s): A41.9 - Sepsis, unspecified organism Is this a current diagnosis for this admission?: Yes Plan: Sepsis due to UTI and his sacral wounds. Patient is currently on vancomycin, cefepime and Flagyl. Patient wounds are growing Peptostreptococcus and Bacteroides fragilis. Blood cultures drawn on 02/06 now growing GPC 1 out of 2. Currently on vancomycin. Will repeat blood cultures in the morning. (2) Chronic pain Qualifiers: Chronic pain type: due to trauma Qualified Code(s): G89.21 - Chronic pain due to trauma Is this a current diagnosis for this admission?: Yes Plan: Patient has chronic back pain which is difficult to control. Will continue current pain regimen and adjust accordingly. (3) Hypokalemia Is this a current diagnosis for this admission?: Yes Plan: Resolved. (4) Sacral decubitus ulcer, stage III Is this a current diagnosis for this admission?: Yes Plan: Patient currently on cefepime and vancomycin and Flagyl. Wound VAC in place. (5) Urinary tract infection Qualifiers: Urinary tract infection type: catheter-associated UTI Indwelling urinary catheter type: indwelling urethral catheter Encounter type: sequela Qualified Code(s): T83.511S - Infection and inflammatory reaction due to indwelling urethral catheter, sequela; N39.0 - Urinary tract infection, site not specified; N39.0 - Urinary tract infection, site not specified Is this a current diagnosis for this admission?: Yes (6) Wounds, multiple Is this a current diagnosis for this admission?: Yes Plan: Patient on antibiotics and receiving wound care for his Sacral Wound Stage 4, Left heel Stage 2-3, Coccyx Stage 2. Wound VAC on the sacral stage IV wound. (7) Anemia Qualifiers: Anemia type: unspecified type Qualified Code(s): D64.9 - Anemia, unspecified Is this a current diagnosis for this admission?: Yes Plan: Anemia of chronic disease and secondary to sepsis. Patient patient received 2 units of packed RBCs. Hemoglobin is gradually trending down is now 7.4. Will transfuse 1 unit of packed RBCs and repeat CBC in the morning. (8) Severe protein-calorie malnutrition Is this a current diagnosis for this admission?: Yes Plan: It is actually eating quite well. Will continue with supplements. (9) Chronic pain Qualifiers: Chronic pain type: other chronic postprocedural pain Qualified Code(s): G89.28 - Other chronic postprocedural pain Is this a current diagnosis for this admission?: Yes Plan: Continue current medical management and monitor closely for oversedation. - Time Time Spent with patient: 15-24 minutes Anticipated discharge: SNF - Inpatient Certification Medical Necessity: Significant Comorbidiites Make Outpatient Treatment Too Risky , Need Close Monitoring Due to Risk of Patient Decompensation, Risk of Complication if Not Cared For in Hospital
[2017-02-07] MEDS: FERROUS SULFATE 325 MG TABLET PO SCH (17:12)
[2017-02-07] MEDS: ACETAMINOPHEN 325 MG TABLET PO PRN (19:10)
[2017-02-07] MEDS: MIRTAZAPINE 15 MG TABLET PO SCH (21:11)
[2017-02-07 22:06] LABS: ABSOLUTE EOSINOPHILS # (AUTO) 0.1 10^3/uL (0.0-0.6); ABSOLUTE LYMPHOCYTES (AUTO) 1.2 10^3/uL (0.5-4.7); ABSOLUTE MONOCYTES (AUTO) 0.7 10^3/uL (0.1-1.4); ABSOLUTE NEUT (AUTO) 3.6 10^3/uL (1.7-8.2); BASOPHILS % (AUTO) 0.5 % (0-2); EOSINOPHILS % (AUTO) 1.7 % (0-6); HEMATOCRIT 25.5 % (37.9-51.0); HEMOGLOBIN 8.3 g/dL (13.5-17.0); LYMPHOCYTES % (AUTO) 21.1 % (13-45); MEAN CORPUSCULAR HEMOGLOBIN 26.4 pg (27.0-33.4); MEAN CORPUSCULAR HGB CONC 32.4 g/dL (32.0-36.0); MEAN CORPUSCULAR VOLUME 82 fl (80-97); MONOCYTES % (AUTO) 12.2 % (3-13); PLATELET COUNT 383 10^3/uL (150-450); RED BLOOD COUNT 3.13 10^6/uL (4.35-5.55); RED CELL DISTRIBUTION WIDTH 17.4 % (11.5-14.0); SEGMENTED NEUTROPHILS % (AUTO) 64.5 % (42-78); TOTAL CELLS COUNTED % (AUTO) 100 %; WHITE BLOOD COUNT 5.6 10^3/uL (4.0-10.5)
[2017-02-08] MEDS: METRONIDAZOLE 500 MG/NS RTU 100 ML IV SCH ×4 (01:05→17:34)
[2017-02-08] MEDS: GABAPENTIN 400 MG CAPSULE PO SCH ×3 (05:12→21:48)
[2017-02-08] MEDS: HEPARIN SOD (PORCINE) 5,000 UNIT/ML 1 ML SYRINGE SUBCUT SCH ×3 (05:12→21:48)
[2017-02-08] MEDS: OXYCODONE HCL SR 10 MG TABLET PO SCH ×2 (05:12→17:34)
[2017-02-08 05:58] LABS: ABSOLUTE EOSINOPHILS # (AUTO) 0.1 10^3/uL (0.0-0.6); ABSOLUTE LYMPHOCYTES (AUTO) 1.4 10^3/uL (0.5-4.7); ABSOLUTE MONOCYTES (AUTO) 0.7 10^3/uL (0.1-1.4); ABSOLUTE NEUT (AUTO) 3.2 10^3/uL (1.7-8.2); BASOPHILS % (AUTO) 0.6 % (0-2); HEMOGLOBIN 8.6 g/dL (13.5-17.0); LYMPHOCYTES % (AUTO) 25.4 % (13-45); MEAN CORPUSCULAR HEMOGLOBIN 26.7 pg (27.0-33.4); MEAN CORPUSCULAR HGB CONC 33.1 g/dL (32.0-36.0); MEAN CORPUSCULAR VOLUME 81 fl (80-97); MONOCYTES % (AUTO) 12.6 % (3-13); PLATELET COUNT 414 10^3/uL (150-450); RED BLOOD COUNT 3.22 10^6/uL (4.35-5.55); RED CELL DISTRIBUTION WIDTH 17.7 % (11.5-14.0); SEGMENTED NEUTROPHILS % (AUTO) 59.4 % (42-78); TOTAL CELLS COUNTED % (AUTO) 100 %; WHITE BLOOD COUNT 5.4 10^3/uL (4.0-10.5)
[2017-02-08] MEDS: VANCOMYCIN HCL 1,250 MG in DEXTROSE 5%-WATER 250 ML IV SCH ×3 (06:51→21:48)
[2017-02-08] MEDS: COLLAGENASE CLOSTRIDIUM HIST. OINT 30 GM TOP SCH (10:34)
[2017-02-08] MEDS: BACLOFEN 10 MG TABLET PO SCH ×2 (10:42→21:48)
[2017-02-08] MEDS: FLUDROCORTISONE ACETATE 0.1 MG TABLET PO SCH (10:44)
[2017-02-08] MEDS: FAMOTIDINE 20 MG TABLET PO SCH ×2 (10:44→21:48)
[2017-02-08] MEDS: DULOXETINE HCL 20 MG CAPSULE.DR PO SCH (10:44)
[2017-02-08] MEDS: CEFEPIME 2 GM/D5W RTU 2 GM/50 ML RTUPB IV SCH (10:45)
[2017-02-08] MEDS: OXYCODONE HCL IR 5 MG TABLET PO PRN ×2 (10:45→21:48)
[2017-02-08] MEDS: NORMAL SALINE 10 ML SDV (SCHEDULED) IV SCH ×2 (10:46→21:48)
[2017-02-08] MEDS: NYSTATIN TOPICAL POWDER 15 GM TP SCH ×2 (10:47→17:35)
[2017-02-08] MEDS: CYANOCOBALAMIN (VITAMIN B-12) 1,000 MCG TABLET PO SCH (14:08)
[2017-02-08 15:01] LABS: VANCOMYCIN,TROUGH 18.4 ug/mL (5.0-20.0)
[2017-02-08] MEDS ORDERED: FLUCONAZOLE 100 MG TABLET PO ONE (16:16)
[2017-02-08] MEDS ORDERED: DULOXETINE HCL 20 MG CAPSULE.DR PO SCH (16:21)
--- NOTE | 2017-02-08 16:29 | PDOC PROGRESS REPORT ---
Subjective Progress Note for:: 02/08/17 Subjective:: Patient is a paraplegic with chronic decubitus ulcers presenting with sepsis and found to be bacteremic with a UTI. Patient states he is doing pretty good complains of pain. Patient has low grade temp overnight. Patient is otherwise doing well. Patient daughter called to asked in pain medicine frequency can be increased. Reason For Visit: UTI Physical Exam Vital Signs: Temp Pulse Resp BP Pulse Ox 99.0 F 86 18 107/55 L 95 02/08/17 07:19 02/08/17 14:00 02/08/17 07:19 02/08/17 07:19 02/08/17 07:19 Intake & Output 02/07/17 02/08/17 02/09/17 06:59 06:59 06:59 Intake Total 2130 3936 962 Output Total 3400 1100 375 Balance -1270 2836 587 Weight 63.3 kg 61.7 kg General appearance: PRESENT: no acute distress, thin, well-nourished Head exam: PRESENT: normocephalic Eye exam: PRESENT: EOMI. ABSENT: scleral icterus Ear exam: PRESENT: normal external ear exam Mouth exam: PRESENT: moist Teeth exam: PRESENT: other - missing dentition Neck exam: ABSENT: carotid bruit, JVD, lymphadenopathy, thyromegaly Respiratory exam: PRESENT: clear to auscultation maury. ABSENT: rales, rhonchi, wheezes Cardiovascular exam: PRESENT: RRR. ABSENT: diastolic murmur, rubs, systolic murmur Pulses: PRESENT: normal dorsalis pedis pul Vascular exam: PRESENT: normal capillary refill GI/Abdominal exam: PRESENT: normal bowel sounds, soft, other - colostomy in place with stool. ABSENT: distended, guarding, mass, organolmegaly, rebound, tenderness Rectal exam: PRESENT: deferred Extremities exam: PRESENT: full ROM. ABSENT: calf tenderness, clubbing, pedal edema Musculoskeletal exam: PRESENT: other - contracted legs Neurological exam: PRESENT: alert, awake, oriented to person, oriented to place , oriented to time, oriented to situation, other - paraplegic. ABSENT: motor sensory deficit Psychiatric exam: PRESENT: appropriate affect, normal mood. ABSENT: homicidal ideation, suicidal ideation Skin exam: PRESENT: dry, intact, warm, other - large sacral wound with wound vac in place. Dressing on right heal. ABSENT: cyanosis, rash Results Laboratory Results: 02/08/17 05:18 02/08/17 13:45 02/07/17 02/07/17 02/08/17 15:21 21:15 05:18 WBC 5.6 5.4 RBC 3.13 L 3.22 L Hgb 8.3 L 8.6 L Hct 25.5 L 26.0 L MCV 82 81 MCH 26.4 L 26.7 L MCHC 32.4 33.1 RDW 17.4 H 17.7 H Plt Count 383 414 Seg Neutrophils % 64.5 59.4 Lymphocytes % 21.1 25.4 Monocytes % 12.2 12.6 Eosinophils % 1.7 2.0 Basophils % 0.5 0.6 Absolute Neutrophils 3.6 3.2 Absolute Lymphocytes 1.2 1.4 Absolute Monocytes 0.7 0.7 Absolute Eosinophils 0.1 0.1 Absolute Basophils 0.0 0.0 Creatinine Est GFR ( Amer) Est GFR (Non-Af Amer) Blood Type O POSITIVE Antibody Screen NEGATIVE 02/08/17 13:45 WBC RBC Hgb Hct MCV MCH MCHC RDW Plt Count Seg Neutrophils % Lymphocytes % Monocytes % Eosinophils % Basophils % Absolute Neutrophils Absolute Lymphocytes Absolute Monocytes Absolute Eosinophils Absolute Basophils Creatinine 0.39 L Est GFR ( Amer) > 60 Est GFR (Non-Af Amer) > 60 Blood Type Antibody Screen 02/06/17 15:25 Catheterized Urine Urine Culture - Final C.albicans/C.dubliniensis Impressions: Chest X-Ray 02/01/17 10:47 IMPRESSION: NO ACUTE RADIOGRAPHIC FINDING IN THE CHEST. Guidance Fluoroscopy 02/02/17 00:00 IMPRESSION: SUCCESSFUL PLACEMENT OF A 5 FR DUAL LUMEN 43 CM PICC IN THE LEFT BASILIC VEIN. Interventional Vascular Procedure 02/02/17 00:00 IMPRESSION: SUCCESSFUL PLACEMENT OF A 5 FR DUAL LUMEN 43 CM PICC IN THE LEFT BASILIC VEIN. PICC Line Insertion 02/02/17 00:00 IMPRESSION: SUCCESSFUL PLACEMENT OF A 5 FR DUAL LUMEN 43 CM PICC IN THE LEFT BASILIC VEIN. Assessment & Plan - Diagnosis (1) Sepsis Qualifiers: Sepsis type: sepsis due to unspecified organism Qualified Code(s): A41.9 - Sepsis, unspecified organism Is this a current diagnosis for this admission?: Yes Plan: Sepsis due to UTI and his sacral wounds. Patient is currently on vancomycin, cefepime and Flagyl. Patient wounds are growing Peptostreptococcus and Bacteroides fragilis. Blood cultures drawn on 02/06 now growing GPC 1 out of 2. Probably contaminant. Currently on vancomycin. VRE in stools-supportive care. Yeast in urine (diflucan x 1)however this may have resulted from the yeast infection in his groin area. Repeat cultures from 02/08 now growth thus far. (2) Chronic pain Qualifiers: Chronic pain type: due to trauma Qualified Code(s): G89.21 - Chronic pain due to trauma Is this a current diagnosis for this admission?: Yes Plan: Patient with chronic and long time opiate user may have a dependence. Will change his oxycode to 5 mg and make it Q 4. Increase his cymbalta to 30mg daily. (3) Hypokalemia Is this a current diagnosis for this admission?: Yes Plan: Resolved. (4) Sacral decubitus ulcer, stage III Is this a current diagnosis for this admission?: Yes Plan: Patient currently on cefepime and vancomycin and Flagyl. Wound VAC in place. (5) Urinary tract infection Qualifiers: Urinary tract infection type: catheter-associated UTI Indwelling urinary catheter type: indwelling urethral catheter Encounter type: sequela Qualified Code(s): T83.511S - Infection and inflammatory reaction due to indwelling urethral catheter, sequela; N39.0 - Urinary tract infection, site not specified; N39.0 - Urinary tract infection, site not specified Is this a current diagnosis for this admission?: Yes Plan: On cefepime for pseudomonas and given a dose of diflucan for the yeast infection. (6) Wounds, multiple Is this a current diagnosis for this admission?: Yes Plan: Patient on antibiotics and receiving wound care for his Sacral Wound Stage 4, Left heel Stage 2-3, Coccyx Stage 2. Wound VAC on the sacral stage IV wound. (7) Anemia Qualifiers: Anemia type: unspecified type Qualified Code(s): D64.9 - Anemia, unspecified Is this a current diagnosis for this admission?: Yes Plan: Anemia of chronic disease and secondary to sepsis. Patient patient received 2 units of packed RBCs. Hemoglobin is gradually trending down is now 7.4. Tranfused 1 unit of PRBC and his hemoglobin in now 8.6. Will monitor. (8) Severe protein-calorie malnutrition Is this a current diagnosis for this admission?: Yes Plan: Eating well. Will continue with supplements. - Time Time Spent with patient: Less than 15 minutes Anticipated discharge: SNF Within: Other - Inpatient Certification Medical Necessity: Significant Comorbidiites Make Outpatient Treatment Too Risky , Need Close Monitoring Due to Risk of Patient Decompensation, Need for Pain Control, Need for IV Antibiotics
[2017-02-08] MEDS: FERROUS SULFATE 325 MG TABLET PO SCH (17:32)
[2017-02-08] MEDS: MIRTAZAPINE 15 MG TABLET PO SCH (21:48)
[2017-02-09] MEDS: METRONIDAZOLE 500 MG/NS RTU 100 ML IV SCH ×4 (00:36→18:18)
[2017-02-09] MEDS: OXYCODONE HCL IR 5 MG TABLET PO PRN ×4 (02:26→20:25)
[2017-02-09] MEDS: HEPARIN SOD (PORCINE) 5,000 UNIT/ML 1 ML SYRINGE SUBCUT SCH ×3 (06:17→22:02)
[2017-02-09] MEDS: OXYCODONE HCL SR 10 MG TABLET PO SCH ×2 (06:17→18:18)
[2017-02-09] MEDS: GABAPENTIN 400 MG CAPSULE PO SCH ×3 (06:17→22:02)
[2017-02-09] MEDS: COLLAGENASE CLOSTRIDIUM HIST. OINT 30 GM TOP SCH (08:57)
[2017-02-09] MEDS: DULOXETINE HCL 30 MG CAPSULE.DR PO SCH (10:59)
[2017-02-09] MEDS: FLUDROCORTISONE ACETATE 0.1 MG TABLET PO SCH (10:59)
[2017-02-09] MEDS: FAMOTIDINE 20 MG TABLET PO SCH ×2 (10:59→22:02)
[2017-02-09] MEDS: BACLOFEN 10 MG TABLET PO SCH ×2 (10:59→22:02)
[2017-02-09] MEDS: NORMAL SALINE 10 ML SDV (SCHEDULED) IV SCH ×2 (10:59→22:02)
[2017-02-09] MEDS: NYSTATIN TOPICAL POWDER 15 GM TP SCH ×2 (10:59→18:19)
[2017-02-09] MEDS: CYANOCOBALAMIN (VITAMIN B-12) 1,000 MCG TABLET PO SCH (14:42)
--- NOTE | 2017-02-09 17:19 | PDOC PROGRESS REPORT ---
Subjective Progress Note for:: 02/09/17 Subjective:: Patient is a paraplegic with chronic decubitus ulcers presenting with sepsis and found to be bacteremic with a UTI. Patient states he is doing pretty good complains of pain. Patient states that his pain is better controlled with the adjustment of the medication. Reason For Visit: UTI Physical Exam Vital Signs: Temp Pulse Resp BP Pulse Ox 98.7 F 98 18 105/62 99 02/09/17 15:38 02/09/17 15:38 02/09/17 15:38 02/09/17 15:38 02/09/17 15:38 Intake & Output 02/08/17 02/09/17 02/10/17 06:59 06:59 06:59 Intake Total 3936 3557 Output Total 1100 4200 Balance 2836 -643 Weight 61.7 kg 64 kg General appearance: PRESENT: no acute distress, well-developed, well-nourished Head exam: PRESENT: normocephalic Eye exam: PRESENT: EOMI. ABSENT: scleral icterus Mouth exam: PRESENT: moist Teeth exam: PRESENT: poor dentation Neck exam: ABSENT: carotid bruit, JVD, lymphadenopathy, thyromegaly Respiratory exam: PRESENT: clear to auscultation maury. ABSENT: rales, rhonchi, wheezes Cardiovascular exam: PRESENT: RRR. ABSENT: diastolic murmur, rubs, systolic murmur GI/Abdominal exam: PRESENT: normal bowel sounds, soft, other - colostomy bag in place with stool and air.. ABSENT: distended, guarding, mass, organolmegaly, rebound, tenderness Rectal exam: PRESENT: deferred Extremities exam: PRESENT: other - contracted. ABSENT: calf tenderness, clubbing, pedal edema Musculoskeletal exam: PRESENT: other - muscle wasting of the legs. Paraplegic. Neurological exam: PRESENT: alert, awake, oriented to person, oriented to place , oriented to time, oriented to situation, CN II-XII grossly intact. ABSENT: motor sensory deficit Psychiatric exam: PRESENT: appropriate affect, normal mood. ABSENT: homicidal ideation, suicidal ideation Skin exam: PRESENT: dry, intact, warm, other - decub ulcer with wound vac with bilateral heel wound with dressing in place. ABSENT: cyanosis, rash Results Laboratory Results: 02/08/17 05:18 02/08/17 13:45 02/04/17 09:45 Blood Blood Culture - Final NO GROWTH IN 5 DAYS 02/04/17 08:30 Blood Blood Culture - Final NO GROWTH IN 5 DAYS 02/06/17 15:25 Catheterized Urine Urine Culture - Final C.albicans/C.dubliniensis Impressions: Chest X-Ray 02/01/17 10:47 IMPRESSION: NO ACUTE RADIOGRAPHIC FINDING IN THE CHEST. Guidance Fluoroscopy 02/02/17 00:00 IMPRESSION: SUCCESSFUL PLACEMENT OF A 5 FR DUAL LUMEN 43 CM PICC IN THE LEFT BASILIC VEIN. Interventional Vascular Procedure 02/02/17 00:00 IMPRESSION: SUCCESSFUL PLACEMENT OF A 5 FR DUAL LUMEN 43 CM PICC IN THE LEFT BASILIC VEIN. PICC Line Insertion 02/02/17 00:00 IMPRESSION: SUCCESSFUL PLACEMENT OF A 5 FR DUAL LUMEN 43 CM PICC IN THE LEFT BASILIC VEIN. Assessment & Plan - Diagnosis (1) Sepsis Qualifiers: Sepsis type: sepsis due to unspecified organism Qualified Code(s): A41.9 - Sepsis, unspecified organism Is this a current diagnosis for this admission?: Yes Plan: Sepsis due to UTI and his sacral wounds. Patient is currently on vancomycin and Flagyl. No pseudomonas on repeat urine culture. Will discontinue vancomycin as there is no growth on the cultures and the only 1/2 was positive on 02/06 which makes this a possible contaminant. Patient blood cultures Peptostreptococcus and Bacteroides fragilis which are both Flagyl. VRE in stools-supportive care. Yeast in urine (diflucan x 1 on 02/08)however this may have resulted from the yeast infection in his groin area. Repeat cultures from 02/08 now growth thus far. Patient is only on flagyl. (2) Chronic pain Qualifiers: Chronic pain type: due to trauma Qualified Code(s): G89.21 - Chronic pain due to trauma Is this a current diagnosis for this admission?: Yes Plan: Patient with chronic and long time opiate user may have a dependence. Continue oxycodoneo to 5 mg Q 4. Contiue cymbalta to 30mg daily. (3) Hypokalemia Is this a current diagnosis for this admission?: Yes Plan: Resolved. (4) Sacral decubitus ulcer, stage III Is this a current diagnosis for this admission?: Yes Plan: Patient currently on flagyl. Wound VAC in place. (5) Urinary tract infection Qualifiers: Urinary tract infection type: catheter-associated UTI Indwelling urinary catheter type: indwelling urethral catheter Encounter type: sequela Qualified Code(s): T83.511S - Infection and inflammatory reaction due to indwelling urethral catheter, sequela; N39.0 - Urinary tract infection, site not specified; N39.0 - Urinary tract infection, site not specified Is this a current diagnosis for this admission?: Yes Plan: Treated with cefepime for pseudomonas and given a dose of diflucan for the yeast infection. (6) Wounds, multiple Is this a current diagnosis for this admission?: Yes Plan: Patient on antibiotics and receiving wound care for his Sacral Wound Stage 4, Left and right heel Stage 2-3, Coccyx Stage 2. Wound VAC on the sacral stage IV wound. (7) Anemia Qualifiers: Anemia type: unspecified type Qualified Code(s): D64.9 - Anemia, unspecified Is this a current diagnosis for this admission?: Yes Plan: Anemia of chronic disease and secondary to sepsis. Patient patient received 2 units of packed RBCs. Hemoglobin trended back down to 7.4. Tranfused 1 unit of PRBC on 02/07 and his hemoglobin in now 8.6. Will monitor. Continue iron replacement. (8) Severe protein-calorie malnutrition Is this a current diagnosis for this admission?: Yes Plan: Eating well. Will continue with supplements. - Time Time Spent with patient: 15-24 minutes Anticipated discharge: SNF - Inpatient Certification Medical Necessity: Significant Comorbidiites Make Outpatient Treatment Too Risky , Need Close Monitoring Due to Risk of Patient Decompensation, Need for Pain Control, Need for IV Antibiotics
[2017-02-09] MEDS: FERROUS SULFATE 325 MG TABLET PO SCH (18:18)
[2017-02-09] MEDS: MIRTAZAPINE 15 MG TABLET PO SCH (22:02)
[2017-02-10] MEDS: METRONIDAZOLE 500 MG/NS RTU 100 ML IV SCH ×4 (00:38→18:18)
[2017-02-10] MEDS: HEPARIN SOD (PORCINE) 5,000 UNIT/ML 1 ML SYRINGE SUBCUT SCH ×3 (05:23→23:39)
[2017-02-10] MEDS: GABAPENTIN 400 MG CAPSULE PO SCH ×3 (05:24→23:38)
[2017-02-10] MEDS: OXYCODONE HCL SR 10 MG TABLET PO SCH ×2 (05:24→18:18)
[2017-02-10 09:24] LABS: ABSOLUTE EOSINOPHILS # (AUTO) 0.1 10^3/uL (0.0-0.6); ABSOLUTE LYMPHOCYTES (AUTO) 1.5 10^3/uL (0.5-4.7); ABSOLUTE MONOCYTES (AUTO) 0.6 10^3/uL (0.1-1.4); ABSOLUTE NEUT (AUTO) 3.6 10^3/uL (1.7-8.2); BASOPHILS % (AUTO) 0.8 % (0-2); EOSINOPHILS % (AUTO) 1.5 % (0-6); HEMATOCRIT 27.3 % (37.9-51.0); HEMOGLOBIN 8.8 g/dL (13.5-17.0); LYMPHOCYTES % (AUTO) 25.9 % (13-45); MEAN CORPUSCULAR HEMOGLOBIN 26.1 pg (27.0-33.4); MEAN CORPUSCULAR HGB CONC 32.2 g/dL (32.0-36.0); MEAN CORPUSCULAR VOLUME 81 fl (80-97); MONOCYTES % (AUTO) 10.6 % (3-13); PLATELET COUNT 431 10^3/uL (150-450); RED BLOOD COUNT 3.36 10^6/uL (4.35-5.55); RED CELL DISTRIBUTION WIDTH 17.3 % (11.5-14.0); SEGMENTED NEUTROPHILS % (AUTO) 61.2 % (42-78); TOTAL CELLS COUNTED % (AUTO) 100 %; WHITE BLOOD COUNT 5.9 10^3/uL (4.0-10.5)
[2017-02-10] MEDS: NORMAL SALINE 10 ML SDV (SCHEDULED) IV SCH ×2 (09:40→23:38)
[2017-02-10] MEDS: FAMOTIDINE 20 MG TABLET PO SCH ×2 (09:41→23:37)
[2017-02-10] MEDS: OXYCODONE HCL IR 5 MG TABLET PO PRN ×2 (09:41→14:46)
[2017-02-10] MEDS: DULOXETINE HCL 30 MG CAPSULE.DR PO SCH (09:41)
[2017-02-10] MEDS: FLUDROCORTISONE ACETATE 0.1 MG TABLET PO SCH (09:42)
[2017-02-10] MEDS: BACLOFEN 10 MG TABLET PO SCH ×2 (09:42→23:38)
[2017-02-10] MEDS: LINEZOLID 300 ML IV SCH ×2 (09:43→23:37)
[2017-02-10] MEDS: NYSTATIN TOPICAL POWDER 15 GM TP SCH ×2 (09:43→18:19)
[2017-02-10] MEDS: COLLAGENASE CLOSTRIDIUM HIST. OINT 30 GM TOP SCH (09:44)
[2017-02-10] MEDS: CYANOCOBALAMIN (VITAMIN B-12) 1,000 MCG TABLET PO SCH (14:46)
[2017-02-10] MEDS: FERROUS SULFATE 325 MG TABLET PO SCH (18:18)
--- NOTE | 2017-02-10 18:39 | PDOC PROGRESS REPORT ---
Subjective Progress Note for:: 02/10/17 Subjective:: Patient is a paraplegic with chronic decubitus ulcers presenting with sepsis and found to be bacteremic with a UTI. Patient states he is doing pretty good complains of pain. He is doing well. Reason For Visit: UTI Physical Exam Vital Signs: Temp Pulse Resp BP Pulse Ox 98.1 F 86 12 105/62 97 02/10/17 11:37 02/10/17 16:13 02/10/17 16:13 02/10/17 16:13 02/10/17 16:13 Intake & Output 02/09/17 02/10/17 02/11/17 06:59 06:59 06:59 Intake Total 3557 2726 1360 Output Total 4200 800 800 Balance -643 1926 560 Weight 64 kg 66.5 kg General appearance: PRESENT: no acute distress, thin, well-developed, well- nourished Head exam: PRESENT: normocephalic Eye exam: ABSENT: scleral icterus Mouth exam: PRESENT: moist Neck exam: ABSENT: carotid bruit, JVD, lymphadenopathy, thyromegaly Respiratory exam: PRESENT: clear to auscultation maury. ABSENT: rales, rhonchi, wheezes Cardiovascular exam: PRESENT: RRR. ABSENT: diastolic murmur, rubs, systolic murmur GI/Abdominal exam: PRESENT: normal bowel sounds, soft, other - colostomy in place. ABSENT: distended, guarding, mass, organolmegaly, rebound, tenderness Rectal exam: PRESENT: deferred Extremities exam: PRESENT: other - contracted with muscle atrophy. ABSENT: calf tenderness, clubbing, pedal edema Neurological exam: PRESENT: other - paraplegic. ABSENT: motor sensory deficit Psychiatric exam: ABSENT: homicidal ideation, suicidal ideation Skin exam: PRESENT: dry, intact, warm, other - wound vac on sacrum with dressing on bilateral heel. ABSENT: cyanosis, rash Results Laboratory Results: 02/10/17 09:00 02/08/17 13:45 02/10/17 09:00 WBC 5.9 RBC 3.36 L Hgb 8.8 L Hct 27.3 L MCV 81 MCH 26.1 L MCHC 32.2 RDW 17.3 H Plt Count 431 Seg Neutrophils % 61.2 Lymphocytes % 25.9 Monocytes % 10.6 Eosinophils % 1.5 Basophils % 0.8 Absolute Neutrophils 3.6 Absolute Lymphocytes 1.5 Absolute Monocytes 0.6 Absolute Eosinophils 0.1 Absolute Basophils 0.0 02/06/17 11:19 Blood Blood Culture - Final E.faecium Vre Impressions: Chest X-Ray 02/01/17 10:47 IMPRESSION: NO ACUTE RADIOGRAPHIC FINDING IN THE CHEST. Guidance Fluoroscopy 02/02/17 00:00 IMPRESSION: SUCCESSFUL PLACEMENT OF A 5 FR DUAL LUMEN 43 CM PICC IN THE LEFT BASILIC VEIN. Interventional Vascular Procedure 02/02/17 00:00 IMPRESSION: SUCCESSFUL PLACEMENT OF A 5 FR DUAL LUMEN 43 CM PICC IN THE LEFT BASILIC VEIN. PICC Line Insertion 02/02/17 00:00 IMPRESSION: SUCCESSFUL PLACEMENT OF A 5 FR DUAL LUMEN 43 CM PICC IN THE LEFT BASILIC VEIN. Assessment & Plan - Diagnosis (1) Sepsis Qualifiers: Sepsis type: sepsis due to unspecified organism Qualified Code(s): A41.9 - Sepsis, unspecified organism Is this a current diagnosis for this admission?: Yes Plan: Sepsis due to UTI and his sacral wounds. The GPC and the blood culture drawn on 02/06/2017 Aubrey to be VRE. Patient is now on Zyvox. Repeat blood cultures on 02/08 are negative for 48 hours. Patient also had previous blood cultures positive for Peptostreptococcus species and bacteriodes fragilis for which she is now on oral Flagyl. Pseudomonas UTI was treated with cefepime. Repeat cultures are negative. Patient also received a dose of Diflucan for the yeast found in his urine. (2) Chronic pain Qualifiers: Chronic pain type: due to trauma Qualified Code(s): G89.21 - Chronic pain due to trauma Is this a current diagnosis for this admission?: Yes Plan: Patient with chronic and long time opiate user may have a dependence. Continue oxycodoneo to 5 mg Q 4. Contiue cymbalta to 30mg daily. He is stable on his regimen. (3) Hypokalemia Is this a current diagnosis for this admission?: Yes Plan: Resolved. (4) Sacral decubitus ulcer, stage III Is this a current diagnosis for this admission?: Yes Plan: Patient currently on flagyl. Wound VAC in place. (5) Urinary tract infection Qualifiers: Urinary tract infection type: catheter-associated UTI Indwelling urinary catheter type: indwelling urethral catheter Encounter type: sequela Qualified Code(s): T83.511S - Infection and inflammatory reaction due to indwelling urethral catheter, sequela; N39.0 - Urinary tract infection, site not specified; N39.0 - Urinary tract infection, site not specified Is this a current diagnosis for this admission?: Yes Plan: Treated with cefepime for pseudomonas and given a dose of diflucan for the yeast infection. (6) Wounds, multiple Is this a current diagnosis for this admission?: Yes Plan: Patient on antibiotics and receiving wound care for his Sacral Wound Stage 4, Left and right heel Stage 2-3, Coccyx Stage 2. Wound VAC on the sacral stage IV wound. (7) Anemia Qualifiers: Anemia type: unspecified type Qualified Code(s): D64.9 - Anemia, unspecified Is this a current diagnosis for this admission?: Yes Plan: Anemia of chronic disease and secondary to sepsis. Patient patient received 2 units of packed RBCs. Hemoglobin trended back down to 7.4. Tranfused 1 unit of PRBC on 02/07. Patient hemoglobin has been stable. Continue iron replacement. (8) Severe protein-calorie malnutrition Is this a current diagnosis for this admission?: Yes Plan: Eating well. Will continue with supplements. - Time Time Spent with patient: Less than 15 minutes Anticipated discharge: SNF - Inpatient Certification Medical Necessity: Significant Comorbidiites Make Outpatient Treatment Too Risky , Need Close Monitoring Due to Risk of Patient Decompensation, Need for IV Antibiotics
[2017-02-10] MEDS: TRAZODONE HCL 50 MG TABLET PO SCH (23:38)
[2017-02-11] MEDS: METRONIDAZOLE 500 MG TABLET PO SCH ×5 (01:04→23:41)
[2017-02-11] MEDS: GABAPENTIN 400 MG CAPSULE PO SCH ×3 (05:12→23:41)
[2017-02-11] MEDS: OXYCODONE HCL SR 10 MG TABLET PO SCH ×2 (05:12→17:34)
[2017-02-11] MEDS: HEPARIN SOD (PORCINE) 5,000 UNIT/ML 1 ML SYRINGE SUBCUT SCH ×3 (05:13→23:42)
[2017-02-11] MEDS: DULOXETINE HCL 30 MG CAPSULE.DR PO SCH (10:11)
[2017-02-11] MEDS: FLUDROCORTISONE ACETATE 0.1 MG TABLET PO SCH (10:11)
[2017-02-11] MEDS: BACLOFEN 10 MG TABLET PO SCH ×2 (10:11→23:41)
[2017-02-11] MEDS: LINEZOLID 300 ML IV SCH ×2 (10:12→23:41)
[2017-02-11] MEDS: FAMOTIDINE 20 MG TABLET PO SCH ×2 (10:12→23:40)
[2017-02-11] MEDS: COLLAGENASE CLOSTRIDIUM HIST. OINT 30 GM TOP SCH (10:14)
[2017-02-11] MEDS: NORMAL SALINE 10 ML SDV (SCHEDULED) IV SCH ×2 (10:14→23:40)
[2017-02-11] MEDS: NYSTATIN TOPICAL POWDER 15 GM TP SCH ×2 (10:14→17:36)
[2017-02-11] MEDS: OXYCODONE HCL IR 5 MG TABLET PO PRN ×2 (14:22→23:41)
[2017-02-11] MEDS: CYANOCOBALAMIN (VITAMIN B-12) 1,000 MCG TABLET PO SCH (15:53)
[2017-02-11] MEDS: FERROUS SULFATE 325 MG TABLET PO SCH (17:35)
[2017-02-11] MEDS: TRAZODONE HCL 50 MG TABLET PO SCH (23:41)
[2017-02-12] MEDS: METRONIDAZOLE 500 MG TABLET PO SCH ×3 (05:07→18:22)
[2017-02-12] MEDS: GABAPENTIN 400 MG CAPSULE PO SCH ×2 (05:07→14:58)
[2017-02-12] MEDS: HEPARIN SOD (PORCINE) 5,000 UNIT/ML 1 ML SYRINGE SUBCUT SCH ×2 (05:07→14:58)
[2017-02-12] MEDS: OXYCODONE HCL SR 10 MG TABLET PO SCH ×2 (05:07→18:21)
[2017-02-12] MEDS: ACETAMINOPHEN 325 MG TABLET PO PRN (06:18)
[2017-02-12] MEDS: OXYCODONE HCL IR 5 MG TABLET PO PRN ×3 (06:18→16:10)
[2017-02-12] MEDS: DULOXETINE HCL 30 MG CAPSULE.DR PO SCH (11:51)
[2017-02-12] MEDS: FAMOTIDINE 20 MG TABLET PO SCH (11:51)
[2017-02-12] MEDS: FLUDROCORTISONE ACETATE 0.1 MG TABLET PO SCH (11:52)
[2017-02-12] MEDS: BACLOFEN 10 MG TABLET PO SCH (11:52)
[2017-02-12] MEDS: LINEZOLID 300 ML IV SCH (11:53)
[2017-02-12] MEDS: NORMAL SALINE 10 ML SDV (SCHEDULED) IV SCH (11:53)
[2017-02-12] MEDS: NYSTATIN TOPICAL POWDER 15 GM TP SCH (11:54)
[2017-02-12] MEDS: COLLAGENASE CLOSTRIDIUM HIST. OINT 30 GM TOP SCH (12:34)
[2017-02-12] MEDS: CYANOCOBALAMIN (VITAMIN B-12) 1,000 MCG TABLET PO SCH (14:59)
--- NOTE | 2017-02-12 15:15 | PDOC PROGRESS REPORT ---
Subjective Progress Note for:: 02/11/17 Subjective:: Patient is a paraplegic with chronic decubitus ulcers presenting with sepsis and found to be bacteremic with a UTI. Patient states he is doing pretty good complains of pain. He is doing well. He is resting comfortably. Reason For Visit: UTI Physical Exam Vital Signs: Temp Pulse Resp BP Pulse Ox 98.2 F 100 14 110/66 98 02/11/17 16:00 02/11/17 16:00 02/11/17 16:00 02/11/17 16:00 02/11/17 16:00 Intake & Output 02/10/17 02/11/17 02/12/17 06:59 06:59 06:59 Intake Total 2726 2007 300 Output Total 800 1900 Balance 1926 107 300 Weight 66.5 kg 68 kg General appearance: PRESENT: no acute distress, thin Head exam: PRESENT: normocephalic Eye exam: PRESENT: EOMI. ABSENT: scleral icterus Ear exam: PRESENT: normal external ear exam Mouth exam: PRESENT: moist Neck exam: ABSENT: carotid bruit, JVD, lymphadenopathy, thyromegaly Respiratory exam: PRESENT: clear to auscultation maury. ABSENT: rales, rhonchi, wheezes Cardiovascular exam: PRESENT: RRR. ABSENT: diastolic murmur, rubs, systolic murmur Pulses: PRESENT: normal dorsalis pedis pul Vascular exam: PRESENT: normal capillary refill GI/Abdominal exam: PRESENT: normal bowel sounds, soft, other - colostomy in place. ABSENT: distended, guarding, mass, organolmegaly, rebound, tenderness Rectal exam: PRESENT: deferred Gentrourinary exam: PRESENT: indwelling catheter Extremities exam: PRESENT: full ROM. ABSENT: calf tenderness, clubbing, pedal edema Musculoskeletal exam: PRESENT: other - curvature of the spine and contracted Neurological exam: PRESENT: alert, awake, oriented to person, oriented to place , oriented to time, oriented to situation, other - paraplegic. ABSENT: motor sensory deficit Psychiatric exam: PRESENT: appropriate affect, normal mood. ABSENT: homicidal ideation, suicidal ideation Skin exam: PRESENT: dry, intact, warm, other - decub ulcer and bilateral heel ulcers. ABSENT: cyanosis, rash Results Laboratory Results: 02/10/17 09:00 02/08/17 13:45 02/06/17 14:02 Blood Blood Culture - Final NO GROWTH IN 5 DAYS Impressions: Chest X-Ray 02/01/17 10:47 IMPRESSION: NO ACUTE RADIOGRAPHIC FINDING IN THE CHEST. Guidance Fluoroscopy 02/02/17 00:00 IMPRESSION: SUCCESSFUL PLACEMENT OF A 5 FR DUAL LUMEN 43 CM PICC IN THE LEFT BASILIC VEIN. Interventional Vascular Procedure 02/02/17 00:00 IMPRESSION: SUCCESSFUL PLACEMENT OF A 5 FR DUAL LUMEN 43 CM PICC IN THE LEFT BASILIC VEIN. PICC Line Insertion 02/02/17 00:00 IMPRESSION: SUCCESSFUL PLACEMENT OF A 5 FR DUAL LUMEN 43 CM PICC IN THE LEFT BASILIC VEIN. Assessment & Plan - Diagnosis (1) Sepsis Qualifiers: Sepsis type: sepsis due to unspecified organism Qualified Code(s): A41.9 - Sepsis, unspecified organism Is this a current diagnosis for this admission?: Yes Plan: Sepsis due to UTI and his sacral wounds. The GPC and the blood culture drawn on 02/06/2017 shoe lay out planner to be VRE. Patient is now on Zyvox. Repeat blood cultures on 02/08 are negative for 48 hours. Patient also had previous blood cultures positive for Peptostreptococcus species and bacteriodes fragilis for which she is now on oral Flagyl. Pseudomonas UTI was treated with cefepime. Repeat urine cultures are negative. Patient also received a dose of Diflucan for the yeast found in his urine. Patient will need a total of 14 days of flagyl and zyvox. Will give an date of 02 19 for the Flagyl and and date of 02/23 Zyvox. (2) Chronic pain Qualifiers: Chronic pain type: due to trauma Qualified Code(s): G89.21 - Chronic pain due to trauma Is this a current diagnosis for this admission?: Yes Plan: Patient with chronic and long time opiate user may have a dependence. Continue oxycodone 5 mg Q 4. cymbalta will have to continue patient on Zyvox as this can cause serotonin syndrome. Will continue patient on trazodone and can increase to 50 mg p.o. daily.. He is stable on his regimen. (3) Hypokalemia Is this a current diagnosis for this admission?: Yes Plan: Resolved. (4) Sacral decubitus ulcer, stage III Is this a current diagnosis for this admission?: Yes Plan: Patient currently on flagyl for the Peptostreptococcus and bacteroides fragilis. Wound VAC in place. (5) Urinary tract infection Qualifiers: Urinary tract infection type: catheter-associated UTI Indwelling urinary catheter type: indwelling urethral catheter Encounter type: sequela Qualified Code(s): T83.511S - Infection and inflammatory reaction due to indwelling urethral catheter, sequela; N39.0 - Urinary tract infection, site not specified; N39.0 - Urinary tract infection, site not specified Is this a current diagnosis for this admission?: Yes Plan: Treated with cefepime for pseudomonas and given a dose of diflucan for the yeast infection. (6) Wounds, multiple Is this a current diagnosis for this admission?: Yes Plan: Patient on antibiotics and receiving wound care for his Sacral Wound Stage 4, Left and right heel Stage 2-3, Coccyx Stage 2. Wound VAC on the sacral stage IV wound. (7) Anemia Qualifiers: Anemia type: unspecified type Qualified Code(s): D64.9 - Anemia, unspecified Is this a current diagnosis for this admission?: Yes Plan: Anemia of chronic disease and secondary to sepsis. Patient patient received 2 units of packed RBCs. Hemoglobin trended back down to 7.4. Tranfused 1 unit of PRBC on 02/07. Patient hemoglobin has been stable with last being 8.8. Continue iron replacement. (8) Severe protein-calorie malnutrition Is this a current diagnosis for this admission?: Yes Plan: Eating well. Will continue with supplements. - Time Time Spent with patient: Less than 15 minutes Anticipated discharge: SNF Within: within 48 hours - Inpatient Certification Medical Necessity: Significant Comorbidiites Make Outpatient Treatment Too Risky , Need Close Monitoring Due to Risk of Patient Decompensation, Need for IV Antibiotics
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
[2017-02-12 16:18] VITALS: BP 121/56
[2017-02-12] MEDS: FERROUS SULFATE 325 MG TABLET PO SCH (18:22)
== END 2017-02-12 20:00 | DRG 871 ==
LOC: ER 10:45 → EH 15:59 → 5 18:06
PROVIDERS: ADMIT Hospitalist; ATTEND Hospitalist
PROC: 0T9B30Z Drainage of Bladder with Drainage Device, Percutaneous Approach (ICD-10-PCS; 2017-02-01)
PROC: 02HV33Z Insertion of Infusion Device into Superior Vena Cava, Percutaneous Approach (ICD-10-PCS; principal; 2017-02-02)
PROC: B5181ZA Fluoroscopy of Superior Vena Cava using Low Osmolar Contrast, Guidance (ICD-10-PCS; 2017-02-02)
PROC: B548ZZA Ultrasonography of Superior Vena Cava, Guidance (ICD-10-PCS; 2017-02-02)
PROC: 30233N1 Transfusion of Nonautologous Red Blood Cells into Peripheral Vein, Percutaneous Approach (ICD-10-PCS; 2017-02-02)
DX: A41.9 Sepsis, unspecified organism (principal); E43 Unspecified severe protein-calorie malnutrition; L89.153 Pressure ulcer of sacral region, stage 3; L89.623 Pressure ulcer of left heel, stage 3; L89.154 Pressure ulcer of sacral region, stage 4; G82.20 Paraplegia, unspecified; T83.511A Infection and inflammatory reaction due to indwelling urethral catheter, initial encounter; N30.00 Acute cystitis without hematuria; E87.6 Hypokalemia; Z68.24 Body mass index [BMI] 24.0-24.9, adult; B95.62 Methicillin resistant Staphylococcus aureus infection as the cause of diseases classified elsewhere; Z16.21 Resistance to vancomycin; F17.210 Nicotine dependence, cigarettes, uncomplicated; B96.89 Other specified bacterial agents as the cause of diseases classified elsewhere; B96.6 Bacteroides fragilis [B. fragilis] as the cause of diseases classified elsewhere; D63.8 Anemia in other chronic diseases classified elsewhere; F34.1 Dysthymic disorder; Y84.6 Urinary catheterization as the cause of abnormal reaction of the patient, or of later complication, without mention of misadventure at the time of the procedure; G89.21 Chronic pain due to trauma; L89.152 Pressure ulcer of sacral region, stage 2; Y73.8 Miscellaneous gastroenterology and urology devices associated with adverse incidents, not elsewhere classified; F32.9 Major depressive disorder, single episode, unspecified; Z88.0 Allergy status to penicillin; Z88.8 Allergy status to other drugs, medicaments and biological substances; Z79.899 Other long term (current) drug therapy; Z87.820 Personal history of traumatic brain injury; Z93.3 Colostomy status; Z83.6 Family history of other diseases of the respiratory system; Z80.1 Family history of malignant neoplasm of trachea, bronchus and lung; Z82.49 Family history of ischemic heart disease and other diseases of the circulatory system; Z91.19 Patient's noncompliance with other medical treatment and regimen
CPT/HCPCS: 36415; 36430; 36569; 71010; 76937; 77001; 80053; 80202; 81001; 82565; 82803; 83605; 83735; 85025; 85027; 85610; 86850; 86900; 86901; 86920; 87040; 87045; 87077; 87086; 87088; 87186; 87205; 87493; 87804; 93005; 93010; 96361; 96365; 96367; 96375; 99291; J0692; J0696; J1642; J1644; J2020; J2405; J3010; J3370; J3480; J3490; J7030; J7060; P9016